=== PATIENT | male | born 1935 | race Caucasian/White ===

== ENCOUNTER → 2017-10-20 05:43 | Outpatient (CLI) | payer MEDICARE, SELFPAY ==
[2017-10-20 07:05] LABS: AST(SGOT) 17 U/L (15-37); Alanine Aminotransfer ALT/SGPT 31 U/L (16-61); Albumin, Serum 2.7 g/dL (3.2-5.0); Alkaline Phosphatase 99 U/L (45-117); Bilirubin, Direct 0.15 mg/dL (0.00-0.30); Cholesterol 134 mg/dL (200); Globulin 3.8 g/dL (2.2-4.2); High Density Lipoprotein 54 mg/dL; Protein, Total 6.5 g/dL (6.4-8.2); Triglycerides 54 mg/dL; Very Low Density Lipoprotein 11 mg/dL (5-40)
== END ==
PROVIDERS: Family Provider Family Medicine; PCP Family Medicine; Visit Provider Internal Medicine Cardiovascular Disease
DX: E78.5 Hyperlipidemia, unspecified (principal); Z79.899 Other long term (current) drug therapy
CPT/HCPCS: 36415; 80061; 80076

== ENCOUNTER 2018-01-25 13:01 | Emergency (ER) | payer MEDICARE, SELFPAY ==
[2018-01-25 13:02] VITALS: BP 151/80; PULSE 100; RESP 22; TEMP 36.9; O2SAT 93; BMI 18.2
[2018-01-25 13:35] VITALS: PULSE 85; RESP 20
[2018-01-25] MEDS: predniSONE 20 MG Tablet 60 MG PO (13:35)
[2018-01-25] MEDS: Ipratropium/Albuterol Sulfate 3 ML AMPUL.NEB INHALATION (13:35)
[2018-01-25 13:39] VITALS: O2SAT 94
[2018-01-25] MEDS: Albuterol 2.5 MG/3 ML VIAL.NEB. INHALATION (13:45)
--- NOTE | 2018-01-25 14:00 | RAD_ITS ---
STUDY: X-RAY CHEST REASON FOR EXAM: Male, 82 years old. Cough. Shortness of breath. TECHNIQUE: PA and lateral views of the chest. COMPARISON: Comparison is made with prior study dated July 25, 2016. FINDINGS: EKG electrodes are seen. Calcific plaque seen at both carotid bifurcations. Hyperinflation. Increased markings in the right upper lobe as compared to prior study. This may represent either progressive scarring or early infiltrate. Decreased bronchovascular markings bilaterally suggestive of emphysematous changes. Stable scarring in the left lower lobe. Sternal cerclage wires and vascular clips are present from a prior sternotomy and coronary artery bypass graft procedure (CABG). Questionable 3.8 signed by 3.2 cm right infrahilar mass. Normal visualized pulmonary arteries. Normal visualized aortic arch and descending thoracic aorta. There are diffuse degenerative changes of the visualized thoracic spine. Normal visualized ribs, clavicles, and shoulders. There is no demonstrated abnormality of the visualized soft tissue structures of the upper abdomen. RAD/Chest PA and Lateral IMPRESSION: Hyperinflation. Increased markings in the right upper lobe suggestive of progressive scarring and/or early infiltrate. Stable left lower lobe scarring. Blunting of both costophrenic angles. Questionable 3.2 cm x 3.8 cm right infrahilar mass. Emphysematous changes. Electronically Signed: Amauri Elizalde MD at 14:34 EST Tel [phone], Service support ,
[2018-01-25 14:06] LABS: Absolute Lymphocyte Count 2.08 X10^3/ul (0.83-4.51); Absolute Neutrophil Count 13.4 X10^3/uL (2.0-7.7); Basophil# 0.02 X10^3/uL; Basophil% 0.1 % (0-1); Eosinophil# 0.01 X10^3/uL; Eosinophils% 0.1 % (0-5); Hematocrit 41.9 % (40-54); Hemoglobin 13.7 g/dl (13.0-16.5); Lymphocyte # 2.08 X10^3/ul (4.0); Lymphocyte % 12.6 % (19-41); Mean Corp Hgb Conc 32.7 g/gl (32-36); Mean Corpuscular Hgb 28.4 pg (27.0-32.0); Mean Corpuscular Volume 86.9 fL (80-94); Mean Platelet Vol. 9.4 fl (6.2-12.0); Monocyte# 1.01 X10^3/uL; Monocyte% 6.1 % (0-10); Neutrophil # 13.38 X10^3/uL (2.7-7.7); Platelet Count 244 K/mm3 (150-450); RBC Distribution Width CV 13.2 % (11.6-14.6); RBC Distribution Width SD 42.2 fl (35.1-43.9); Red Blood Count 4.82 M/mm3 (4.6-6.2); White Blood Count 16.5 K/mm3 (4.4-11.0)
[2018-01-25 14:08] LABS: POSITIVE COUNT NO; POSITIVE DIFFERENTIAL NO; POSITIVE MORPHOLOGY NO
[2018-01-25 14:14] LABS: Anion Gap 5 (5-15); BUN 18 mg/dL (7-18); BUN/Creat Ratio 16.8 RATIO (10-20); Calcium,Total 9.8 mg/dL (8.5-10.1); Chloride 106 mmol/L (98-107); Creatinine, Serum 1.07 mg/dL (0.70-1.30); EST Glomerular Filtration Rate 70 mL/min (>60); Est Glom Filt Rate - Afr Amer 85 mL/min (>60); Estimated Creatinine Clearance 43.96 ml/min; Glucose 115 mg/dL (74-106); Potassium 4.5 mmol/L (3.5-5.1); Sodium Level 139 mmol/L (136-145)
[2018-01-25 15:01] VITALS: BP 96/67; PULSE 86; RESP 20; O2SAT 94
--- NOTE | 2018-01-25 15:11 | ED.VISSUMM ---
- ER Visit Summary Date of Service: 01/25/18 Chief Complaint: Shortness of breath and productive cough of green sputum History of Present Illness: The patient is a 82 M who has history of COPD, coronary disease, CVA, hypertension, hypercholesterolemia and ventricular premature beats presents with shortness of breath for the past 1-2 days with productive green colored sputum. He does complain of subjective fever with chills. He denies ocular, visual auditory symptoms. He denies nasal congestion, postnasal drainage or rhinorrhea. He does report palpitations. He denies GI or symptoms. Denies myalgias or arthralgias. He denies rash. There is mild generalized weakness. Denies headache, paresthesia, anesthesia motor weakness. He denies hives or swelling. Is a former smoker and quit in 2002. He is not on home oxygen. Physical Examination: Vital signs noted and remarkable for a heart rate of 100 and respiratory rate of 22. He is not hypoxic and was afebrile. Head is atraumatic normocephalic. Pupils are equal round reactive. Extraocular muscles are intact. TMs are pearly white with landmarks noted. Nares patent with no drainage. Posterior pharynx without erythema or exudate. Uvula is midline. There is no dysphonia or dysphasia. Trachea is midline. There is no stridor with auscultation of the neck. Lungs reveal diminished breath sounds bilateral with expiratory wheezing throughout and increased x-ray phase. Heart is regular without murmur, gallop or rub. Abdomen soft nontender. There is no asymmetry, swelling, discoloration, leg vein distention, palpable cords or tenderness along the distribution of the deep venous system. Neuro exam is nonfocal. Test Results: EKG interpreted by ak as sinus with a rate of 98 and first-degree AV block. QRS duration normal. QT interval normal. [place] is normal. There is no ossific ST-T wave changes noted. 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 There is no discrete infiltrate noted. White count is elevated 16,500 with 81 segs. Electro panels unremarkable. Emergency Department Course and Treatment: Patient was treated with Atrovent and 3 albuterol treatments. He received 60 mg of prednisone. He received a dose of antibiotics in the department. Chest x-ray was obtained to assess for pneumonia or pneumothorax etc. CBC to evaluate for white count and to determine if he is anemic. Be a PAC to assess electrolytes and renal function. Patient was reassessed at 1500. He is wheeze free. Treatment Plan: Prescription for doxycycline and burst of prednisone Disposition: Discharge to home Impression: 1. Exacerbation of COPD with bronchospasm 2. Exacerbation of chronic bronchitis This note was generated with [employer] dictation software. It may contain incorrect words, spelling, and punctuation that were not noted in review of the chart prior to signing ED Disposition - Plan for ED Patient: Disposition: Home or Assisted Living Chief Complaint: Shortness of Breath Instructions: ED COPD Flare Prescriptions: Prednisone [Deltasone] 40 mg PO DAILY #10 tab Doxycycline Monohydrate 100 mg PO BID #14 cap Referrals: mR Calixto MD [Primary Care Provider] - 3-5 Days
--- NOTE | 2018-01-25 15:15 | ED.DCSUM_ITS ---
- ER Visit Summary Date of Service: 01/25/18 Chief Complaint: Shortness of breath and productive cough of green sputum History of Present Illness: The patient is a 82 M who has history of COPD, coronary disease, CVA, hypertension, hypercholesterolemia and ventricular premature beats presents with shortness of breath for the past 1-2 days with productive green colored sputum. He does complain of subjective fever with chills. He denies ocular, visual auditory symptoms. He denies nasal congestion, postnasal drainage or rhinorrhea. He does report palpitations. He denies GI or symptoms. Denies myalgias or arthralgias. He denies rash. There is mild generalized weakness. Denies headache, paresthesia, anesthesia motor weakness. He denies hives or swelling. Is a former smoker and quit in 2002. He is not on home oxygen. Physical Examination: Vital signs noted and remarkable for a heart rate of 100 and respiratory rate of 22. He is not hypoxic and was afebrile. Head is atraumatic normocephalic. Pupils are equal round reactive. Extraocular muscles are intact. TMs are pearly white with landmarks noted. Nares patent with no drainage. Posterior pharynx without erythema or exudate. Uvula is midline. There is no dysphonia or dysphasia. Trachea is midline. There is no stridor with auscultation of the neck. Lungs reveal diminished breath sounds bilateral with expiratory wheezing throughout and increased x-ray phase. Heart is regular without murmur, gallop or rub. Abdomen soft nontender. There is no asymmetry, swelling, discoloration, leg vein distention, palpable cords or tenderness along the distribution of the deep venous system. Neuro exam is nonfocal. Test Results: EKG interpreted by ca as sinus with a rate of 98 and first-degree AV block. QRS duration normal. QT interval normal. [place] is normal. There is no ossific ST-T wave changes noted. 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 There is no discrete infiltrate noted. White count is elevated 16,500 with 81 segs. Electro panels unremarkable. Emergency Department Course and Treatment: Patient was treated with Atrovent and 3 albuterol treatments. He received 60 mg of prednisone. He received a dose of antibiotics in the department. Chest x-ray was obtained to assess for pneumonia or pneumothorax etc. CBC to evaluate for white count and to determine if he is anemic. Be a PAC to assess electrolytes and renal function. Patient was reassessed at 1500. He is wheeze free. Treatment Plan: Prescription for doxycycline and burst of prednisone Disposition: Discharge to home Impression: 1. Exacerbation of COPD with bronchospasm 2. Exacerbation of chronic bronchitis This note was generated with [employer] dictation software. It may contain incorrect words, spelling, and punctuation that were not noted in review of the chart prior to signing ED Disposition - Plan for ED Patient: Disposition: Home or Assisted Living Chief Complaint: Shortness of Breath Instructions: ED COPD Flare Prescriptions: Prednisone [Deltasone] 40 mg PO DAILY #10 tab Doxycycline Monohydrate 100 mg PO BID #14 cap Referrals: Rm Calixto MD [Primary Care Provider] - 3-5 Days
[2018-01-25] MEDS: Doxycycline 100 MG CAPSULE PO (15:27)
[2018-01-25 15:30] VITALS: BP 116/61; PULSE 82; RESP 19; O2SAT 95
--- NOTE | 2018-01-25 15:30 | ED.RN ---
IV DC'ED, CATHETER INTACT, SMALL GAUZE DRESSING PLACED. DISCHARGE INSTRUCTIONS GIVEN TO AND REVIEWED WITH PATIENT, PATIENT DENIES QUESTIONS OR CONCERNS AND VOICES UNDERSTANDING OF DISCHARGE INSTRUCTIONS. PT TO PRIVATE VEHICLE VIA WHEELCHAIR.
--- OUTSIDE RECORDS SUMMARY | 2018-03-23 02:16 | XMS RPT_ITS ---
:1935 Author Organization OHIP Care Team Providers Name Role Phone BECKIE SHANKS Attending Unavailable BABIUCH, BECKIE Referring Unavailable BABIUCH, BECKIE Attending Unavailable BABIUCH, BECKIE Attending Unavailable BABIUCH, BECKIE Referring Unavailable CLAUDIA REYNA F Attending Unavailable RIMMA, BECKIE Referring Unavailable CLAUDIA JOLLEY (OD) Attending Unavailable Nallely Manrique Attending Unavailable Gunner, Daniel Attending Unavailable [place], [place] Referring Unavailable Elderbrock, Rm Primary Care Unavailable [place], [place] Attending Unavailable Elderbroreid, Rm Referring Unavailable Elderbrock, Rm Primary Care Unavailable Elderbroreid, Rm Primary Care Unavailable Stevenson, Prince Attending Unavailable PROBLEMS PROBLEMS DATE TYPE CONDITION / CODE ATTENDING STATUS SOURCE 10/20/2017 Unknown E78.5 - Hyperlipidemia, [place], [place] Active [place] unspecified / Community E78.5(ICD-10) Hospital Repository 10/20/2017 Unknown Z95.1 - Presence of Gunner, Daniel Active [facility] aortocoronary bypass Community graft / Z95.1(ICD-10) Hospital Repository 10/20/2017 Unknown Z95.4 - Presence of [place], [place] Active [place] other heart-valve Community replacement / Hospital Z95.4(ICD-10) Repository 10/20/2017 Unknown I25.10 - [place], [place] Active [place] Atherosclerotic heart Community disease of [place] [facility] coronary artery without Repository angina pectoris / I25.10(ICD-10) 10/20/2017 Unknown I25.2 - Old myocardial Gunner, Daniel Active [facility] infarction / Community I25.2(ICD-10) Hospital Repository 10/20/2017 Unknown I63.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 - Cerebral Gunner, Daniel Active [facility] 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 Hospital cerebellar artery / Repository I63.442(ICD-10) 10/20/2017 Unknown Z95.5 - Presence of [place], [place] Active [facility] coronary angioplasty Community implant and graft / Hospital Z95.5(ICD-10) Repository 10/20/2017 Unknown I35.0 - Nonrheumatic Gunner, Daniel Active [facility] aortic (valve) stenosis Community / I35.0(ICD-10) Hospital Repository 10/20/2017 Unknown I49.49 - Other [place], [place] Active [facility] premature Community depolarization / Hospital I49.49(ICD-10) Repository 10/20/2017 Unknown I10 - Essential [place], [place] Active [facility] (primary) hypertension Community / I10(ICD-10) Hospital Repository 10/20/2017 Unknown Z79.899 - Other long Gunner, Daniel Active [facility] term (current) drug Community therapy / Hospital Z79.899(ICD-10) Repository 09/29/2016 Active [facility] of intraocular BECKIE SHANKS Active [place] lens / Z96.1(ICD-10) Clinic Main [place] Repository 09/29/2016 Active Nonexudative BECKIE SHANKS [facility] age-related macular [facility] Main degeneration, right [place] eye, intermediate dry Repository stage / H35.3112(ICD-10) 09/29/2016 Active Exudative age-related BECKIE SHANKS Active [place] macular degeneration, Clinic Main left eye, with active [place] choroidal Repository neovascularization / H35.3221(ICD-10) PROCEDURES PROCEDURES No Procedure Records FoundRESULTS RESULTS EMERGENCY DEPARTMENT Observed: 01/25/2018 Status: F Source: [place] SUMMARY 3:16 PM [facility] REPOSITORY [facility] Medical Records Department [address] [place] [address] Emergency Department Summary 01/25/18 1511 MR#: [id number] Acct: [id number] Name: ELODIA DEL CID Rep #: [id number] : 1935 82 From: Prince Stevenson MD PCP: Rm Calixto MD Status: REG ER - ER Visit Summary Date of Service: 01/25/18 Chief Complaint: Shortness of breath and productive cough of green sputum History of Present Illness: The patient is a 82 M who has history of COPD, coronary disease, CVA, hypertension, hypercholesterolemia and ventricular premature beats presents with shortness of breath for the past 1-2 days with productive green colored sputum. He does complain of subjective fever with chills. He denies ocular, visual auditory symptoms. He denies nasal congestion, postnasal drainage or rhinorrhea. He does report palpitations. He denies GI or symptoms. Denies myalgias or arthralgias. He denies rash. There is mild generalized weakness. Denies headache, paresthesia, anesthesia motor weakness. He denies hives or swelling. Is a former smoker and quit in 2002. He is not on home oxygen. Physical Examination: Vital signs noted and remarkable for a heart rate of 100 and respiratory rate of 22. He is not hypoxic and was afebrile. Head is atraumatic normocephalic. Pupils are equal round reactive. Extraocular muscles are intact. TMs are pearly white with landmarks noted. Nares patent with no drainage. Posterior pharynx without erythema or exudate. Uvula is midline. There is no dysphonia or dysphasia. Trachea is midline. There is no stridor with auscultation of the neck. Lungs reveal diminished breath sounds bilateral with expiratory wheezing throughout and increased x-ray phase. Heart is regular without murmur, gallop or rub. Abdomen soft nontender. There is no asymmetry, swelling, discoloration, leg vein distention, palpable cords or tenderness along the distribution of the deep venous system. Neuro exam is nonfocal. Test Results: EKG interpreted by me as sinus with a rate of 98 and first-degree AV block. QRS duration normal. QT interval normal. Odin is normal. There is no ossific ST-T wave changes noted. Two-view chest x-ray interpreted by me reveals hyperaeration with chronic changes consistent with emphysematous obstructive pulmonary disease. There is no discrete infiltrate noted. White count is elevated 16,500 with 81 segs. Electro panels unremarkable. Emergency Department Course and Treatment: Patient was treated with Atrovent and 3 albuterol treatments. He received 60 mg of prednisone. He received a dose of antibiotics in the department. Chest x-ray was obtained to assess for pneumonia or pneumothorax etc. CBC to evaluate for white count and to determine if he is anemic. Be a PAC to assess electrolytes and renal function. Patient was reassessed at 1500. He is wheeze free. Treatment Plan: Prescription for doxycycline and burst of prednisone Disposition: Discharge to home Impression: 1. Exacerbation of COPD with bronchospasm 2. Exacerbation of chronic bronchitis This note was generated with [employer] dictation software. It may contain incorrect words, spelling, and punctuation that were not noted in review of the chart prior to signing ED Disposition - Plan for ED Patient: Disposition: Home or Assisted Living Chief Complaint: Shortness of Breath Instructions: ED COPD Flare Prescriptions: Prednisone [Deltasone] 40 mg PO DAILY #10 tab Doxycycline Monohydrate 100 mg PO BID #14 cap Referrals: Rm Calixto MD [Primary Care Provider] - 3-5 Days What to do if you have Problems For any increased pain, shortness of breath, bleeding, nausea or vomiting, chest pain, or any unexpected problems, contact your Primary Care Provider. Call [facility] ([phone]) or report to the closest Emergency Room. Call 911 if necessary. 01/25/18 4650 <Electronically signed by Prince Stevenson MD> Date Prince Stevenson MD Cosigner Signature (If Indicated): Date CC: Rm Calixto MD CBC W/DIFF, AUTOMATED Collected: 01/25/2018 Status: F Source: [place] 1:55 PM [facility] CODE TESTS RESULT OUT OF RANGE REFERENCE UNITS LAB L100.1000 4.4-11.0 K/mm3 High WBC 16.5 LAB L100.1200 4.6-6.2 M/mm3 Normal RBC 4.82 LAB L100.1300 13.0-16.5 g/dl Normal HGB 13.7 LAB L100.1400 40-54 % Normal HCT 41.9 LAB L100.1500 80-94 fL Normal MCV 86.9 LAB L100.1600 27.0-32.0 pg Normal MCH 28.4 LAB L100.1700 32-36 g/gl Normal MCHC 32.7 LAB L100.1810 11.6-14.6 % Normal RDW CV 13.2 LAB L100.1820 35.1-43.9 fl Normal RDW SD 42.2 LAB L100.1900 150-450 K/mm3 Normal PLT 244 LAB L100.2000 6.2-12.0 fl Normal MPV 9.4 LAB L100.2100 47-70 % High NEUT% 81.0 LAB L100.2200 19-41 % Low LY% 12.6 LAB L100.2300 0-10 % Normal MONO% 6.1 LAB L100.2400 0-5 % Normal EO% 0.1 LAB L100.2500 0-1 % Normal BASO% 0.1 LAB L100.2550 0.0-0.9 % Normal IM GRAN % 0.100 Result Comment: IG% - Immature Granulocytes (promyelocytes, myelocytes and metamyelocytes) > 1% indicates that a LEFT SHIFT is Present. LAB L100.2620 2.0-7.7 X10 3/uL High Absolute Neut 13.4 LAB L100.2720 0.83-4.51 X10 3/ul Normal Absolute Lymph 2.08 Performed By: #### L100.0100 #### [place] [facility] [address] [place], [address] BASIC METABOLIC Collected: 01/25/2018 Status: F Source: [place] PROFILE (BMP) 1:55 PM [facility] [place] TYPE CODE TESTS RESULT OUT OF RANGE REFERENCE UNITS LAB L501.0100 74-106 mg/dL High GLU 115 Result Comment: Fasting Glucose result from 100 to 125 mg/dL suggests IMPAIRED HOMEOSTASIS per A.D.A. criteria. Please note revised GLUCOSE reference range effective 2017. LAB L501.1000 7-18 mg/dL Normal BUN 18 LAB L501.1100 0.70-1.30 mg/dL Normal CREAT,SERUM 1.07 Result Comment: The validity of the calculated GFR AND GFRAA in patients over 70 years has not been determined. Clinical correlation is essential. LAB L501.1110 >60 mL/min Normal EST GFR 70 Result Comment: Non- GFR Calc LAB L501.1115 >60 mL/min Normal EST GFR - AA 85 Result Comment: GFR Calc LAB L501.1255 ml/min Normal Estimated CRCL 43.96 LAB L501.1300 10-20 RATIO Normal BUN/CRE 16.8 LAB L501.2200 8.5-10 mg/dL Normal .1 CA 9.8 LAB L501.5300 136-14 mmol/L Normal 5 NA 139 LAB L501.5600 3.5-5. mmol/L Normal 1 K 4.5 LAB L501.5900 98-107 mmol/L Normal CL 106 LAB L501.6100 21.0-3 mmol/L Normal 2.0 CO2 28.0 LAB L501.6200 5-15 Normal GAP 5 Performed By: #### L500.2500 #### [facility] [address] [place], [address] CHEST PA AND LATERAL Observed: 01/25/2018 Status: F Source: [place] 1:26 PM [facility] [place] [facility] Imaging Services [address] [place] [address] Chest PA and Lateral MR#: [id number] Acct: [id number] Name: ELODIA DEL CID Rep #: [id number] : 1935 M 82 From: Amauri Elizalde MD PCP: Rm Calixto MD Status: REG ER Study: Chest PA and Lateral Date of Exam: 01/25/18 Exam# [id number] Ordering Dr: Prince Stevenson MD STUDY: X-RAY CHEST REASON FOR EXAM: Male, 82 years old. Cough. Shortness of breath. TECHNIQUE: PA and lateral views of the chest. COMPARISON: Comparison is made with prior study dated July 25, 2016. FINDINGS: EKG electrodes are seen. Calcific plaque seen at both carotid bifurcations. Hyperinflation. Increased markings in the right upper lobe as compared to prior study. This may represent either progressive scarring or early infiltrate. Decreased bronchovascular markings bilaterally suggestive of emphysematous changes. Stable scarring in the left lower lobe. Sternal cerclage wires and vascular clips are present from a prior sternotomy and coronary artery bypass graft procedure (CABG). Questionable 3.8 signed by 3.2 cm right infrahilar mass. Normal visualized pulmonary arteries. Normal visualized aortic arch and descending thoracic aorta. There are diffuse degenerative changes of the visualized thoracic spine. Normal visualized ribs, clavicles, and shoulders. There is no demonstrated abnormality of the visualized soft tissue structures of the upper abdomen. RAD/Chest PA and Lateral IMPRESSION: Hyperinflation. Increased markings in the right upper lobe suggestive of progressive scarring and/or early infiltrate. Stable left lower lobe scarring. Blunting of both costophrenic angles. Questionable 3.2 cm x 3.8 cm right infrahilar mass. Emphysematous changes. Electronically Signed: Amauri Elizalde MD at 14:34 EST Tel [phone], Service support , CC: Rm Calixto MD; Prince Stevenson MD Plumbing Instructor: Signed PROGRESS Observed: 12/20/2017 Status: COMPLETED Source: [place] 10:38 AM [facility] REPOSITORY HNO ID: [id number] Author: Claudia Jolley Service: (none) Author Type: WORKFORCE DEVELOPMENT SPECIALIST Type: Progress Notes Filed: 12/20/2017 10:39 AM Note Text: ASSESSMENT/PLAN: 1. Subconjunctival hemorrhage of left eye - ICD9: 372.72, ICD10: H11.32 (primary diagnosis) Ice packs x 10 minutes x 2-3 times per day Left eye for discomfort 2. Pseudophakia of both eyes - ICD9: V43.1, ICD10: Z96.1 Intraocular lens implant in good position both eyes. Claudia Jolley, OD I have confirmed and edited as necessary the relevant ophthalmic history, review of systems, surgical history, and ophthalmological examination findings as obtained by the ophthalmic technical staff. I have seen and examined Elodia Del Cid. I have discussed the examination findings, diagnosis, and treatment options with Elodia Del Cid and/or his family. I have also reviewed and agree with the assessment and plan as stated above and agree with all its relevant components. I gave the patient the opportunity to ask questions about the findings, diagnosis, and treatment options. PROGRESS Observed: 12/16/2017 Status: COMPLETED Source: [place] 2:16 PM [facility] REPOSITORY [facility] ID: [id number] Author: Claudia Reyna Service: (none) Author Type: Physician Type: Progress Notes Filed: 12/16/2017 3:23 PM Note Text: (H35.3221) Exudative age-related macular degeneration, left eye, with active choroidal neovascularization (HCC) (primary encounter diagnosis) (H35.3112) Nonexudative age-related macular degeneration, right eye, intermediate dry stage (Z96.1) Pseudophakia of both eyes 82 year old male patient with exudative Age related macular degeneration Left eye. Advise intravitreal eylea Left eye today. Non exudative Age related macular degeneration Right eye. AREDS 2 vitamins are recommended and can be purchased over the counter at the drug store. Please check the amsler grid daily and contact the office should a change occur. Intraocular lens Both eyes stable. Return to clinic in [place] in 8 weeks. The documentation recorded by the scribe accurately reflects the service I personally performed and the decisions made by me. I have confirmed and edited as necessary the relevant ophthalmic history, ROS, and the neuro exam findings as obtained by others. I have seen and examined Elodia Del Cid. I have discussed the case and the management of this patient's care with the Lace Stripper, if applicable. I also have reviewed and agree with the assessment and plan as stated above and agree with all of its relevant components. Claudia Reyna MD December 16, 2017 3:23 PM PROGRESS Observed: 10/21/2017 Status: COMPLETED Source: [place] 1:03 PM [facility] REPOSITORY HNO ID: [id number] Author: Beckie Shanks Service: (none) Author Type: Physician Type: Progress Notes Filed: 10/21/2017 1:34 PM Note Text: ASSESSMENT/PLAN: Last dilated fundus exam: June 24, 2017 H35.3221 Exudative age-related macular degeneration, left eye, with active choroidal neovascularization (HCC) (primary encounter diagnosis) Comment: onset within the last 2 months or so - recommend anti-VEGF therapy - s/p Avastin x 5 (06/24/2017) AND s/p Eylea x 2 (Apr 2017) - was in [place] until April 2017 and was seen there in Jan, Mar and Apr when he had Avastin and Eylea - patient says [employer] coverage is good for Beckie Shanks MD for Eylea - subretinal fluid resolved on OCT today - recommend Eylea today left eye and follow up in 8-10 weeks - leaves for [place] in December H35.3112 Nonexudative age-related macular degeneration, right eye, intermediate dry stage Comment: AREDS supplementation, Amsler grid testing, and the warnings regarding the transformation from the dry form to the wet form of Age related macular degeneration were recommended to the patient. Z96.1 Pseudophakia of both eyes Comment: stable/obs Any documentation recorded by the scribe accurately reflects the service I personally performed and the decisions made by myself, Beckie Shanks MD. I have confirmed and edited as necessary the relevant ophthalmic history, ROS, and the neuro exam findings as obtained by others. I have seen and examined Elodiaepi Del Cid. I have discussed the case and the management of this patient's care with the Resident/Fellow, if applicable. I also have reviewed and agree with the assessment and plan as stated above and agree with all of its relevant components. CARDIOLOGY VISIT Observed: 10/20/2017 Status: F Source: [place] REPORT 9:40 AM [facility] [facility] [address] [place] [address] [address] [place] [address] OFFICE VISIT Date of Service: 10/20/17 MR#: [id number] Acct: [id number] Name: ELODIA DEL CID Rep #: [id number] : 1935 Provider: Daniel Martino MD Age/Sex: 81/M Location: [facility] Status: Signed HPI HPI Chief Complaint: Follow-up visit. Details: ELODIA DEL CID, is a 81 M who presents to the office today for a follow-up visit. He is a gentleman with a history of coronary artery disease status post carotid bypass surgery with a saphenous vein graft to diagonal branch and right coronary artery. He also had aortic valve disease and had an aortic valve replacement for aortic valve stenosis. He also has a history of hypertension and hyperlipidemia. He says that he has been doing well denying any chest pain or shortness breath or paroxysmal nocturnal dyspnea no pedal edema he does get mild shortness of breath when he exerts himself quite strenuously. He has not had any neck arm or jaw discomfort suggest angina and his physical exam today demonstrates clear lung torres regular rate and rhythm with occasional irregularities of soft 1/6 systolic murmur noted left sternal border and no pedal edema. His blood pressure is under good control. Intake Vital Signs10/20/17 Height 5 ft 11 in 10/20/17 Weight: 130 lb 10/20/17 Body Mass Index (BMI) 18.1 10/20/17 Blood Pressure 130/60 10/20/17 Respiratory Rate 18 10/20/17 Pulse Rate 52 Intake Visit Reasons: 6 M FU (we r/s from 07-20 AND 10-28) Allergies No Known Allergies Allergy (Verified 10/20/17 08:33) Medications Albuterol Aerosols [Ventolin Aerosols] 2.5 mg INHALATION Q4H PRN PRN 07/24/16 [History Confirmed 10/20/17] Aspirin 81 mg PO DAILY 07/24/16 [History Confirmed 10/20/17] Ipratropium/Albuterol Respimat [Combivent Respimat Inhal [place]] 1 puff INHALATION DAILY 07/24/16 [History Confirmed 10/19/17] Tamsulosin HCl [Flomax] 0.4 mg PO DAILY 07/24/16 [History Confirmed 10/19/17] atorvastatin 40 mg tablet 40 mg PO QHS #90 tab 07/30/17 [Rx Confirmed 10/19/17] clopidogrel 75 mg tablet 75 mg PO DAILY #90 tab 09/20/17 [Rx Confirmed 10/20/17] lisinopril 10 mg tablet 10 mg PO QDAY #90 tab 09/20/17 [Rx Confirmed 10/19/17] metoprolol succinate ER 50 mg tablet,extended release 24 hr 50 mg PO DAILY #90 tab 09/20/17 [Rx Confirmed 10/19/17] HANDICAP PLACARD #1 ea 10/19/17 [History Confirmed 10/19/17] amoxicillin 500 mg tablet 2 g PO ONCE PRN tab 10/19/17 [History Confirmed 10/19/17] beclomethasone diprop 40 mcg/actuation HFA breath activated aerosol 1 puff INHALATION BID 10/19/17 [History Confirmed 10/19/17] famotidine 20 mg tablet 20 mg PO QDAY 10/19/17 [History Confirmed 10/19/17] fluticasone 50 mcg/actuation nasal spray,suspension 2 spray INTRANASAL QDAY 10/19/17 [History Confirmed 10/19/17] vit C 150 mg-vit E 30 unit-lutein 5 ye-auuvftpa-semiq 3 150 mg capsule 1 cap PO QAM 10/19/17 [History Confirmed 10/19/17] [facility] Medical History Multiple premature ventricular complexes (Chronic) Atherosclerosis of coronary artery of [place] heart without angina pectoris (Chronic) Non-rheumatic aortic stenosis (Chronic) 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) Hypertension (Chronic) Hyperlipidemia (Chronic) COPD (chronic obstructive pulmonary disease) (Chronic) RLS (restless legs syndrome) (Chronic) Surgical History H/O coronary artery bypass surgery (Resolved 10/24/02) History of coronary artery stent placement (Resolved 1997) History of aortic valve replacement with tissue graft (Resolved 10/24/02) Family History Mother CVA (cerebral vascular accident) Brother Myocardial infarction age 50 Social History Smoking Status: Former smoker ROS Const Const: Positive for other; negative for fatigue, weakness, difficulty sleeping, frequent falls, excessive sweating or headache(s) Eyes Eyes: Negative for loss of peripheral vision, transient loss of vision, blurry vision, tunnel vision or double vision ENT ENT: Negative for headache(s), dizziness, Nosebleed/epistaxis or balance problems Cardio Chest Pain: No Palpitations: No Edema: None Muscle aches with walking: None Resp Respiratory: Positive for SOB with activity and wheezing (Diminished T/O ); negative for SOB at rest, SOB orthopnea\SOB lying down, paroxysmal nocturnal dyspnea or Cough Additional Details: Taking Z-Hammad for URI. Occasionally uses 2 L of O2 at night GI GI: Negative nausea, heartburn, black,tarry stools or vomiting : Negative for hematuria Musc Musc: Negative for balance problems, muscle aches/ myalgia, muscle weakness or joint pain Skin Skin: Negative non-healing lesions, unusual bruising or rash Neuro Neuro: Negative for weakness, frequent falls, headache(s), blurry vision, double vision, dizziness, lightheadedness, orthostatic symptoms, near syncope, syncope or lack of coordination Darryl Hematologic/Lymphatic: Negative for easy bruising or easy bleeding Endo Endo: Negative for fatigue, excessive sweating or increased thirst/drinking Psych Psych: Negative for anxiety or depression Allergy Allergy/Immunology: Negative for hives, Negative for rash Cardiology Exam Const Appearance: cooperative, healthy appearing, well developed, well groomed and no acute distress Nutritional Appearance: well nourished and average body habitus Orientation: alert, awake and oriented x3 Head Head: normal to inspection, normocephalic and atraumatic Ears: hearing grossly normal bilaterally and external ears normal Nose: external nose normal, nasal mucous membranes and turbinates normal, nares normal, septum normal, no nasal discharge Face and Sinus: face symmetric Mouth: oral mucosae normal, tongue normal, oropharynx normal and moist mucous membranes Teeth and gingiva: dentition normal Throat: posterior oropharynx normal, tonsils normal and uvula midline Eyes General: appearance normal, both eyes and all related structures Eyelids: eyelids normal Conjunctivae: conjunctivae normal Pupils: PERRL, normal by confrontation and accommodation normal EOM: EOM intact bilaterally Neck Neck: normal visual inspection, trachea midline and no JVD JVD: +5 Carotids: normal carotid upstroke and bounding pulses Chest Chest inspection: normal inspection of the chest, symmetric chest movement and normal respiratory effort Auscultation: Bilateral: Clear to Auscultation Cardio Palpation: normal PMI Rate: regular rate Rhythm: regular rhythm Heart sounds: S1 normal, S2 normal and normal, physiologic split S2; negative rub, gallop or murmur Murmur: Grade 1/6, soft and early systolic GI GI: normal to inspection, soft, no hepatosplenomegaly and bowel sounds present Neuro General: alert, awake, oriented x3, no focal sensory deficit, gait normal and moves all extremities Skin Skin: no rashes or lesions noted Extremities Pulses: Normal: Right Femoral Pulse, Left Femoral Pulse, Right Dorsalis Pedis Pulse, Left Dorsalis Pedis Pulse, Right Posterior Tibial Pulse, Left Posterior Tibial Pulse, Right Radial Pulse, Left Radial Pulse Lower Extremity Edema: None: Bilateral Musculoskel Musculoskeletal: No joint tenderness Psych Psychological: normal affect Assessment AND Plan 1. H/O coronary artery bypass surgery Z95.1 CABG x 2 SVG-D1, SVG-RCA with Aortic Valve Replacement 10/24/2002 Plan He is status post carotid bypass surgery as noted above. He does not appear to have any angina and the plan will be for him to continue on the current medical therapy. He remains very active and I do not think that any additional testing needs to be performed at this time. Orders Orders: 2. Multiple premature ventricular complexes I49.49 Plan He does have a history of premature ventricular complexes. His electrocardiogram today demonstrated sinus rhythm with a rate of 68 bpm and frequent premature ventricular complexes. No changes will be made especially in light of the fact that his ejection fraction is noted to be preserved. His last echocardiogram had demonstrated ejection fraction of 50% with no obvious wall motion abnormalities. 3. History of aortic valve replacement with tissue graft Z95.4 25 mm Medtronic Mosaic Porcine Valve 10/21/2002 Plan He is status post aortic valve replacement with a Andrew Miranda valve his last valve area was noted to be 1.3 cm . No changes will be made he will continue with antibiotic prophylaxis. Orders Orders: 4. Hypertension I10 Plan His blood pressure appears to be under good control at this particular time on the current medications and I would not recommend that we make any changes. He will remain on the Toprol and the lisinopril. 5. Hyperlipidemia E78.5 Plan He does have a history of hyperlipidemia. His most recent lipid profile demonstrated total cholesterol 134, HDL 54 and LDL of 69. No other medical changes will be made. Thank you for allowing me to participate in the care of your patient. 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 [address] [place] [address] 12 Lead EKG performed by [facility] 10/20/17 0910 MR#: [id number] Acct: [id number] Name: ELODIA DEL CID Rep #: [id number] : 1935 81 From: Daniel Martino MD Attending Dr: Daniel Martino MD Status: DEP AMB Ordering Dr: Daniel Martino MD Date: 10/20/17 Location: [facility] [place] Sex: M C Admitted: [facility]/12 Lead EKG performed by [facility] ECG Report Interpretation Sinus Rhythm -Frequent pvcs -ventricular trigeminy Low voltage in limb leads. -Left atrial enlargement. -Inferior infarct -age undetermined. 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: [place] Signed LIVER PROFILE Collected: 10/20/2017 Status: F Source: [place] 6:03 [facility] [place] TYPE CODE TESTS RESULT OUT OF RANGE REFERENCE UNITS LAB L501.1500 6.4-8.2 g/dL Normal T PROT 6.5 LAB L501.1800 3.2-5.0 g/dL Low ALB 2.7 LAB L501.1950 2.2-4.2 g/dL Normal GLOB 3.8 LAB L501.4100 15-37 U/L Normal AST 17 LAB L501.4305 45-117 U/L Normal ALK P 99 LAB L501.4405 16-61 U/L Normal ALT 31 LAB L501.4600 0.20-1.00 mg/dL Normal T BILI 0.40 LAB L501.4700 0.00-0.30 mg/dL Normal D BILI 0.15 Performed By: #### L500.3400, L500.4100 #### [facility] [address] [place], [place], [id number] LIPID PROFILE Collected: 10/20/2017 Status: F Source: [place] 6:03 [facility] [place] TYPE CODE TESTS RESULT OUT OF RANGE REFERENCE UNITS LAB L501.4900 200 mg/dL Normal CHOL 134 Result Comment: <200 mg/dL Desirable 200-240 mg/dL Borderline >240 mg/dL High Risk LAB L501.5000 mg/dL Normal TRIG 54 Result Comment: The drugs N-Acetylcysteine and Metamizole may falsely depress this assay. Serum Triglycerides Reference Interval Normal <150 mg/dL Borderline high 150 - 199 mg/dL High 200 - 499 mg/dL Very High > or = 500 mg/dL LAB L501.6400 mg/dL Normal HDL 54 Result Comment: The drugs N-Acetylcysteine and Metamizole may falsely depress this assay. Reference Range HDL <40 mg/dL Low HDL Cholesterol HDL >or= 60 mg/dL High HDL Cholesterol LAB L501.6500 0-130 mg/dL Normal LDL 69 LAB L501.6600 5-40 mg/dL Normal VLDL 11 Performed By: #### L500.3400, L500.4100 #### [facility] [address] [place], [address] PROGRESS Observed: 10/12/2017 Status: COMPLETED Source: [place] 3:29 PM [facility] REPOSITORY HNO ID: [id number] Author: Betsy Louis Service: (none) Author Type: Nurse Practitioner Type: Progress Notes Filed: 10/12/2017 3:57 PM Note Text: Subjective HPI HPI Elodia Del Cid is a 81 year old male who presents today for CC of cough and productive mucous. This started over a week ago. He is also having red/rust colored mucuous. Symptoms are worsened by lying down. He has tried prescribed inhalers Risk factors COPD BP 100/50 Pulse 76 Temp 36.7 ?C (98 ?F) (Tympanic) Resp 20 Wt 56.7 kg (125 lb) SpO2 94% BMI 17.43 kg/m? 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 Other vitreous opacities - Both Eyes Pseudophakia of Both Eyes Chronic Diastolic Chf (Congestive Heart Failure) (Hcc) Age-Related Macular Degeneration, Dry, Both Eyes Vitreous Floaters of Both Eyes Dry Eye Syndrome Exudative Age-Related Macular Degeneration, Left Eye, 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 Social History Main Topics Smoking status: Former Smoker Packs/day: 1.00 Years: 54.00 Types: Cigarettes Start date: 1948 Quit date: 09/21/2002 Smokeless tobacco: Never Used Comment: Father smoked in childhood home. Alcohol use: No Drug use: No Sexual activity: Yes Partners with: Female Social History Narrative Has lived in current area since age 7. 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 [place] pipeline being placed through property. 2 dogs in home. No birds in home. Basement not really dry. No visible mold problems. Electric heat pump, forced air with central A/C. Filters checked monthly. PAST MEDICAL HISTORY Diagnosis Date - Acute, but ill-defined, cerebrovascular disease 2005 - Aortic valve disorders Valve replaced 2002 - Coronary atherosclerosis of unspecified type of vessel, tanacross or graft CABG 2002 - Obstructive chronic bronchitis with exacerbation (HCC) COPD Review of Systems Constitutional: Negative. Negative for chills, fever and malaise/fatigue. HENT: Positive for congestion (chest). Negative for ear pain, sinus pain and sore throat. Respiratory: Positive for cough, shortness of breath and wheezing. Negative for sputum production. Cardiovascular: Negative for chest pain. Musculoskeletal: Negative for myalgias. Skin: Negative for rash. Neurological: Negative for headaches. Objective Physical Exam Constitutional: He is well-developed, well-nourished, and in no distress. HENT: Head: Normocephalic and atraumatic. Right Ear: Tympanic membrane, external ear and ear canal normal. Tympanic membrane is not injected, not erythematous, not retracted and not bulging. No middle ear effusion. Left Ear: Tympanic membrane, external ear and ear canal normal. Tympanic membrane is not injected, not erythematous, not retracted and not bulging. No middle ear effusion. Nose: Nose normal. Right sinus exhibits no maxillary sinus tenderness and no frontal sinus tenderness. Left sinus exhibits no maxillary sinus tenderness and no frontal sinus tenderness. Mouth/Throat: Uvula is midline, oropharynx is clear and moist and mucous membranes are normal. No oropharyngeal exudate, posterior oropharyngeal edema, posterior oropharyngeal erythema or tonsillar abscesses. Eyes: Pupils are equal, round, and reactive to light. Conjunctivae and EOM are normal. Neck: Normal range of motion. Cardiovascular: Normal rate, regular rhythm and normal heart sounds. Pulmonary/Chest: Effort normal. No respiratory distress. He has decreased breath sounds. He has wheezes. He has no rhonchi. He has no rales. Albuterol neb treatment done while in office, increase in air exchange, with no change in PO2. Lymphadenopathy: Head (right side): No submental, no submandibular, no tonsillar, no preauricular and no posterior auricular adenopathy present. Head (left side): No submental, no submandibular, no tonsillar, no preauricular and no posterior auricular adenopathy present. He has no cervical adenopathy. Right cervical: No posterior cervical adenopathy present. Left cervical: No posterior cervical adenopathy present. Right: No supraclavicular adenopathy present. Left: No supraclavicular adenopathy present. Skin: Skin is warm and dry. Psychiatric: Affect normal. Nursing note and vitals reviewed. ASSESSMENT/PLAN: 1. COPD with exacerbation (HCC) - ICD9: 491.21, ICD10: J44.1 (primary diagnosis) Rest, oral fluids, tylenol as needed for pain or fever See your doctor if not improving Seek emergency room care for worsening symptoms or condition changes Prednisone for airway congestion/wheezing/coughing - ALBUTEROL SULFATE 2.5 MG/3 ML (0.083 %) SOLUTION FOR NEBULIZATION - PREDNISONE 20 MG TABLET - DOXYCYCLINE MONOHYDRATE 100 MG CAPSULE 2. Wheezing - ICD9: 786.07, ICD10: R06.2 .- Discussed use of Prednisone 5 day course as needed for cough, wheeze, shortness of breath * Prednisone 40 mg (2 tablets) per day for 5 days, take in morning or early in day * Do not NSAIDs during this 5 day course (ibuprofen, naproxen, Motrin, Aleve, Advil) Tylenol only during prednisone use * Follow up with primary care provider if no improvement with treatmen * Seek medical care immediately, call 911, go to ER if you have chest pain, difficulty breathing, shortness of breath, inability to swallow. - ALBUTEROL SULFATE 2.5 MG/3 ML (0.083 %) SOLUTION FOR NEBULIZATION - PREDNISONE 20 MG TABLET - DOXYCYCLINE MONOHYDRATE 100 MG CAPSULE Diagnosis and treatment plan were discussed and questions were answered to the patient's satisfaction. Pt acknowledged understanding of concepts and follow up plan. Specific signs and symptoms that would indicate the need for higher level of care were discussed in detail warranting prompt ER evaluation. Betsy Louis APRN.CNP CNOV Observed: 10/12/2017 Status: COMPLETED Source: [place] 3:15 PM [facility] REPOSITORY Office Visit ([facility]) DEL CIDELODIA ([id number]) 1935 M Date Time Provider Department 10/12/17 3:15 PM BETSY LOUIS (P[employer] PAINT TRIMMER) [facility] During your visit today, we recorded the following information about you: Temperature Pulse Respiration Blood pressure 98 degrees 76/minute 20/minute 100/50 Weight 56.7 kg Betsy Louis APRN.CNP 10/12/2017 3:57 PM Signed Subjective HPI HPI Elodia Blackman Nehemias is a 81 year old male who presents today for CC of cough and productive mucous. This started over a week ago. He is also having red/rust colored mucuous. Symptoms are worsened by lying down. He has tried prescribed inhalers Risk factors COPD BP 100/50 Pulse 76 Temp 36.7 ?C (98 ?F) (Tympanic) Resp 20 Wt 56.7 kg (125 lb) SpO2 94% BMI 17.43 kg/m? 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 Other vitreous opacities - Both Eyes Pseudophakia of Both Eyes Chronic Diastolic Chf (Congestive Heart Failure) (Hcc) Age-Related Macular Degeneration, Dry, Both Eyes Vitreous Floaters of Both Eyes Dry Eye Syndrome Exudative Age-Related Macular Degeneration, Left Eye, 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 Social History Main Topics Smoking status: Former Smoker Packs/day: 1.00 Years: 54.00 Types: Cigarettes Start date: 1948 Quit date: 09/21/2002 Smokeless tobacco: Never Used Comment: Father smoked in childhood home. Alcohol use: No Drug use: No Sexual activity: Yes Partners with: Female Social History Narrative Has lived in current area since age 7. [place] current [place] 1877, [place] area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 [place] pipeline being placed through property. 2 dogs in home. No birds in home. Basement not really dry. No visible mold problems. Electric heat pump, forced air with central A/C. Filters checked monthly. PAST MEDICAL HISTORY Diagnosis Date - Acute, but ill-defined, cerebrovascular disease 2006 - Aortic valve disorders Valve replaced 2002 - Coronary atherosclerosis of unspecified type of vessel, tanacross or graft CABG 2003 - Obstructive chronic bronchitis with exacerbation (HCC) COPD Review of Systems Constitutional: Negative. Negative for chills, fever and malaise/fatigue. HENT: Positive for congestion (chest). Negative for ear pain, sinus pain and sore throat. Respiratory: Positive for cough, shortness of breath and wheezing. Negative for sputum production. Cardiovascular: Negative for chest pain. Musculoskeletal: Negative for myalgias. Skin: Negative for rash. Neurological: Negative for headaches. Objective Physical Exam Constitutional: He is well-developed, well-nourished, and in no distress. HENT: Head: Normocephalic and atraumatic. Right Ear: Tympanic membrane, external ear and ear canal normal. Tympanic membrane is not injected, not erythematous, not retracted and not bulging. No middle ear effusion. Left Ear: Tympanic membrane, external ear and ear canal normal. Tympanic membrane is not injected, not erythematous, not retracted and not bulging. No middle ear effusion. Nose: Nose normal. Right sinus exhibits no maxillary sinus tenderness and no frontal sinus tenderness. Left sinus exhibits no maxillary sinus tenderness and no frontal sinus tenderness. Mouth/Throat: Uvula is midline, oropharynx is clear and moist and mucous membranes are normal. No oropharyngeal exudate, posterior oropharyngeal edema, posterior oropharyngeal erythema or tonsillar abscesses. Eyes: Pupils are equal, round, and reactive to light. Conjunctivae and EOM are normal. Neck: Normal range of motion. Cardiovascular: Normal rate, regular rhythm and normal heart sounds. Pulmonary/Chest: Effort normal. No respiratory distress. He has decreased breath sounds. He has wheezes. He has no rhonchi. He has no rales. Albuterol neb treatment done while in office, increase in air exchange, with no change in PO2. Lymphadenopathy: Head (right side): No submental, no submandibular, no tonsillar, no preauricular and no posterior auricular adenopathy present. Head (left side): No submental, no submandibular, no tonsillar, no preauricular and no posterior auricular adenopathy present. He has no cervical adenopathy. Right cervical: No posterior cervical adenopathy present. Left cervical: No posterior cervical adenopathy present. Right: No supraclavicular adenopathy present. Left: No supraclavicular adenopathy present. Skin: Skin is warm and dry. Psychiatric: Affect normal. Nursing note and vitals reviewed. ASSESSMENT/PLAN: 1. COPD with exacerbation (HCC) - ICD9: 491.21, ICD10: J44.1 (primary diagnosis) Rest, oral fluids, tylenol as needed for pain or fever See your doctor if not improving Seek emergency room care for worsening symptoms or condition changes Prednisone for airway congestion/wheezing/coughing - ALBUTEROL SULFATE 2.5 MG/3 ML (0.083 %) SOLUTION FOR NEBULIZATION - PREDNISONE 20 MG TABLET - DOXYCYCLINE MONOHYDRATE 100 MG CAPSULE 2. Wheezing - ICD9: 786.07, ICD10: R06.2 .- Discussed use of Prednisone 5 day course as needed for cough, wheeze, shortness of breath * Prednisone 40 mg (2 tablets) per day for 5 days, take in morning or early in day * Do not NSAIDs during this 5 day course (ibuprofen, naproxen, Motrin, Aleve, Advil) Tylenol only during prednisone use * Follow up with primary care provider if no improvement with treatmen * Seek medical care immediately, call 911, go to ER if you have chest pain, difficulty breathing, shortness of breath, inability to swallow. - ALBUTEROL SULFATE 2.5 MG/3 ML (0.083 %) SOLUTION FOR NEBULIZATION - PREDNISONE 20 MG TABLET - DOXYCYCLINE MONOHYDRATE 100 MG CAPSULE Diagnosis and treatment plan were discussed and questions were answered to the patient's satisfaction. Pt acknowledged understanding of concepts and follow up plan. Specific signs and symptoms that would indicate the need for higher level of care were discussed in detail warranting prompt ER evaluation. CAROLINE Zee APRN.CNP 10/12/2017 3:52 PM Signed ASSESSMENT/PLAN: 1. COPD with exacerbation (HCC) - ICD9: 491.21, ICD10: J44.1 (primary diagnosis) Rest, oral fluids, tylenol as needed for pain or fever See your doctor if not improving Seek emergency room care for worsening symptoms or condition changes Prednisone for airway congestion/wheezing/coughing - ALBUTEROL SULFATE 2.5 MG/3 ML (0.083 %) SOLUTION FOR NEBULIZATION - PREDNISONE 20 MG TABLET - DOXYCYCLINE MONOHYDRATE 100 MG CAPSULE 2. Wheezing - ICD9: 786.07, ICD10: R06.2 .- Discussed use of Prednisone 5 day course as needed for cough, wheeze, shortness of breath * Prednisone 40 mg (2 tablets) per day for 5 days, take in morning or early in day * Do not NSAIDs during this 5 day course (ibuprofen, naproxen, Motrin, Aleve, Advil) Tylenol only during prednisone use * Follow up with primary care provider if no improvement with treatmen * Seek medical care immediately, call 911, go to ER if you have chest pain, difficulty breathing, shortness of breath, inability to swallow. - ALBUTEROL SULFATE 2.5 MG/3 ML (0.083 %) SOLUTION FOR NEBULIZATION - PREDNISONE 20 MG TABLET - DOXYCYCLINE MONOHYDRATE 100 MG CAPSULE Jessica Pierce LPN 10/12/2017 4:28 PM Signed 2.5 solution aerosol treatment given per doctor's orders. Prior to treatment O2 Sat is 94%. Treatment completed. O2 sat is 94%. Tolerated well. Jessica Pierce LPN Referring Provider: SELF [[id number]] Allergies As of Date: 10/12/2017 Noted Allergy Reaction CATS 09/22/2007 14 - Other: See Comments Comments: States that he isn't allergic to it FEATHERS 09/22/2007 - Other: See Comments Comments: States that he isn't allergic to it Date Reviewed: 10/12/2017 [facility]ed [facility]: [facility] Missy - Fully Assessed Reason for Visit: Cough [28] Cmt: AND SOB X 1 wk, phlegm is yellow AND red tinged. Primary Visit Diagnosis:COPD with exacerbation ([facility]) [J44.1] Other Visit Diagnosis:Wheezing [R06.2] Order(s):[] albuterol 2.5 mg /3 mL (0.083 %) 2.5 mg (PROVENTIL)Disp: Rfl: predniSONE (DELTASONE) 20 mg tabletTake 2 tablets by mouth once daily for 5 days.Disp: 10 tabletRfl: 0 doxycycline monohydrate (MONODOX) 100 mg capsuleTake 1 capsule by mouth twice daily for 10 days.Disp: 20 capsuleRfl: 0 Prescriptions as of 10/12/2017 Sig: TAMSULOSIN 0.4 MG CAPSULE TAKE 1 CAPSULE DAILY AT BEDTI* IPRATROPIUM 20 MCG-ALBUTEROL * Inhale 1 Puff as instructed f* ALBUTEROL SULFATE 2.5 MG/3 ML* USE 1 VIAL (3 MLS) VIA NEBULI* OCUVITE ORAL Take by mouth. LISINOPRIL 10 MG TABLET Take 10 mg by mouth once phil* * PLAVIX 75 MG TABLET Take one(1) tablet daily. * LIPITOR 80 MG TABLET Take one(1) tablet daily. * ADULT LOW DOSE ASPIRIN 81 MG * Take one(1) tablet daily. * METOPROLOL TARTRATE 50 MG TAB* Take one(1) tablet daily. PREDNISONE 20 MG TABLET Take 2 tablets by mouth once * DOXYCYCLINE MONOHYDRATE 100 M* Take 1 capsule by mouth twice* Problem List As Of Date 10/12/2017 Noted Resolved Coronary atherosclerosis [I25.10] INVALID FOR* Chronic obstructive airway disease with asthma *INVALID FOR* History of aortic valve replacement [Z95.2] INVALID FOR* CVA [I67.89] INVALID FOR* ALLERGIC RHINITIS NOS [J30.9] INVALID FOR* Nonexudative senile macular degeneration of ret*INVALID FOR* Other vitreous opacities - Both Eyes [H43.399] INVALID FOR* Pseudophakia of both eyes [Z96.1] INVALID FOR* Chronic diastolic CHF (congestive heart failure*INVALID FOR* Age-related macular degeneration, dry, both eye*INVALID FOR* Vitreous floaters of both eyes [H43.393] INVALID FOR* Dry eye syndrome [H04.129] INVALID FOR* Exudative age-related macular degeneration, lef*INVALID FOR* Nonexudative age-related macular degeneration, *INVALID FOR* After-cataract obscuring vision [H26.499] INVALID FOR* Other instructions from your clinician: ASSESSMENT/PLAN: 1. COPD with exacerbation (HCC) - ICD9: 491.21, ICD10: J44.1 (primary diagnosis) Rest, oral fluids, tylenol as needed for pain or fever See your doctor if not improving Seek emergency room care for worsening symptoms or condition changes Prednisone for airway congestion/wheezing/coughing - ALBUTEROL SULFATE 2.5 MG/3 ML (0.083 %) SOLUTION FOR NEBULIZATION - PREDNISONE 20 MG TABLET - DOXYCYCLINE MONOHYDRATE 100 MG CAPSULE 2. Wheezing - ICD9: 786.07, ICD10: R06.2 .- Discussed use of Prednisone 5 day course as needed for cough, wheeze, shortness of breath * Prednisone 40 mg (2 tablets) per day for 5 days, take in morning or early in day * Do not NSAIDs during this 5 day course (ibuprofen, naproxen, Motrin, Aleve, Advil) Tylenol only during prednisone use * Follow up with primary care provider if no improvement with treatmen * Seek medical care immediately, call 911, go to ER if you have chest pain, difficulty breathing, shortness of breath, inability to swallow. - ALBUTEROL SULFATE 2.5 MG/3 ML (0.083 %) SOLUTION FOR NEBULIZATION - PREDNISONE 20 MG TABLET - DOXYCYCLINE MONOHYDRATE 100 MG CAPSULE Visit Notes: >> Jessica Pierce LPN e Oct 12, 2017 4:27 PM Status: Signed 2.5 solution aerosol treatment given per doctor's orders. Prior to treatment O2 Sat is 94%. Treatment completed. O2 sat is 94%. Tolerated well. Jessica Pierce LPN Prescriptions ordered this encounter Disp Refills Start End ALBUTEROL SULFATE 2.5 MG/3 ML (0.083* 10/12/2017 10/12/2017 Route: INHALATION PREDNISONE 20 MG TABLET 10 t* 0 10/12/2017 10/17/2017 Route: ORAL Sig: Take 2 tablets by mouth once daily for 5 days. DOXYCYCLINE MONOHYDRATE 100 MG CAPSU* 20 c* 0 10/12/2017 10/22/2017 Route: ORAL Sig: Take 1 capsule by mouth twice daily for 10 days. Medications Discontinued During This Encounter FAMOTIDINE (PEPCID AC ORAL) 10/12/2017 Class: Historical Med Route: ORAL Sig: Take by mouth. Disc: Course of therapy completed budesonide-formoterol (SYMBICORT) 16* 1 In* 11 11/06/2016 10/12/2017 Route: INHALATION Sig: Inhale 2 Puffs as instructed twice daily. Patient not taking: Reported on 10/12/2017 Disc: Course of therapy completed Encounter Status:Closed by BETSY LOUIS CNP on 10/12/17 PROGRESS Observed: 08/25/2017 Status: COMPLETED Source: HAMEL 5:11 PM [facility] REPOSITORY O ID: [id number] Author: Beckie Shanks Service: (none) Author Type: Physician Type: Progress Notes Filed: 08/26/2017 4:23 PM Note Text: ASSESSMENT/PLAN: Last dilated fundus exam: June 24, 2017 H35.3221 Exudative age-related macular degeneration, left eye, with active choroidal neovascularization (HCC) (primary encounter diagnosis) Comment: onset within the last 2 months or so - recommend anti-VEGF therapy - s/p Avastin x 5 (06/24/2017) AND s/p Eylea x 2 (Apr 2017) - was in [place] until April 2017 and was seen there in Jan, Mar and Apr when he had Avastin and Eylea - patient says [employer] coverage is good for Beckie Shanks MD for Eylea - subretinal fluid resolved on OCT today - recommend Eylea today left eye and follow up in 8-10 weeks for Eylea H35.3112 Nonexudative age-related macular degeneration, right eye, intermediate dry stage Comment: AREDS supplementation, Amsler grid testing, and the warnings regarding the transformation from the dry form to the wet form of Age related macular degeneration were recommended to the patient. Z96.1 Pseudophakia of both eyes Comment: stable/obs Any documentation recorded by the scribe accurately reflects the service I personally performed and the decisions made by myself, Beckie Shanks MD. I have confirmed and edited as necessary the relevant ophthalmic history, ROS, and the neuro exam findings as obtained by others. I have seen and examined Elodia Del Cid. I have discussed the case and the management of this patient's care with the Resident/Fellow, if applicable. I also have reviewed and agree with the assessment and plan as stated above and agree with all of its relevant components. 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, left eye, with active choroidal neovascularization (HCC) (primary encounter diagnosis) Comment: onset within the last 2 months or so - recommend anti-VEGF therapy - s/p Avastin x 4 (Jan 2017) AND s/p Eylea x 2 (Apr 2017) - was in [place] until April 2017 and was seen there in Jan, Mar and Apr when he had Avastin and Eylea - recommend repeat Avastin today and follow up in 4-6 weeks for Avastin vs Eylea left eye - change [employer] coverage to Beckie Shanks MD as physician and then start with Eylea injections - now returning to [place] from [place] H35.3112 Nonexudative age-related macular degeneration, right eye, intermediate dry stage Comment: AREDS supplementation, Amsler grid testing, and the warnings regarding the transformation from the dry form to the wet form of Age related macular degeneration were recommended to the patient. Z96.1 Pseudophakia of both eyes Comment: stable/obs Any documentation recorded by the scribe accurately reflects the service I personally performed and the decisions made by myself, Beckie Shanks MD. I have confirmed and edited as necessary the relevant ophthalmic history, ROS, and the neuro exam findings as obtained by others. I have seen and examined Elodia Del Cid. I have discussed the case and the management of this patient's care with the Resident/Fellow, if applicable. I also have reviewed and agree with the assessment and plan as stated above and agree with all of its relevant components. ALLERGIES ALLERGIES DATE TYPE / CODE NAME / CODE REACTION SEVERITY SOURCE 10/20/2017 Drug No Known Unknown [facility] Allergy/416 Allergies/F0019 [facility] [id number](SNOM 21844(RXNORM) Repository ED CT) 09/22/2007 Animal/4201 CATS OTHER: SEE [facility] [address]644(SNOME Main [place] D CT) Repository 09/22/2007 DRUG FEATHERS OTHER: SEE [facility] INGREDI/[address] [place] [address] [id number](SNOM Repository ED CT) ENCOUNTERS ENCOUNTERS ADMIT/DISCHARGE ACCOUNT ADMITTING ENCOUNTER LOCATION SOURCE NUMBER CLASS 01/25/2018/01/26/20 [id number] Emergency [address] ing:ED Repository 01/25/2018/01/26/20 [id number] Ambulatory [address] Repository 12/20/2017/12/22/19 [id number] Ambulatory [address] Repository 12/16/2017/12/18/19 [id number] Ambulatory [address] Repository 10/21/2017/10/23/19 [id number] Ambulatory [address] Repository 10/20/2017/10/21/19 [id number] Ambulatory BMSBuilding:Hiral Allred [address] .[facility] Repository 10/20/2017 [id number] Ambulatory [facility] ing:LAB Repository 10/19/2017 [id number] Ambulatory BMSBuilding:Hiral Allred MS.[facility] Repository 10/12/2017/10/15/19 [id number] Ambulatory [address] Repository 08/26/2017/08/28/19 [id number] Ambulatory [address] Repository 06/24/2017/06/26/[id number] Repository PAYERS PAYERS ENCOUNTER GUARANTOR PAYER SUBSCRIBER SOURCE 01/25/2018 ELODIA Blackman Primary ELODIA Blackman [place] [id number] Insurance:ANTHEM DAWSONDOB: Community [employer]ARE [place]olic [id number]: Repository [id number]: 330 [id number] [phone] (HP) Date:[id number] [address] [place] [address] 39019LO: 01/25/2018 Secondary NOT GIVENUNK [place] Insurance:SELF PAY [facility] Number: Effective Repository Date:2018-01-25 10/20/2017 ELODIA Blackman Primary ELODIA Blackman [place] [id number] Insurance:ANTHEM DAWSONDOB[facility] OPolicy [id number] Number: Repository [id number]: ([phone] [id number] [phone] (HP) Date:1108-86-47LH [address] [place] [address] 65997OU: 10/20/2017 Secondary NOT GIVENUNK [place] Insurance:SELF PAY [facility] Number: Effective Repository Date:2017-07-13 10/20/2017 ELODIA B Primary ELODIA B [place] [id number] Insurance:ANTHEM DAWSONDOB: [facility] [id number] Number: Repository [id number]: 330 [id number] [phone] (HP) Date:2319-35-30TB [address] [place] [address]RB: 10/20/2017 Secondary NOT GIVENUNK [place] Insurance:SELF PAY [facility] Number: Effective Repository Date:2017-10-20 10/19/2017 ELODIA Blackman Primary ELODIA Allred [id number] Insurance:FATOUMATA DAWSON: Community SHREVE MEDICARE PPOPolicy [id number], [place] Number: Repository [id number]: ([phone] [id number] [phone] () Date:[id number] [address], [place] [address]HQ: 10/19/2017 Secondary NOT GIVENUNK [place] Insurance:SELF PAY [facility] Number: Effective Repository Date:2017-10-19
== END 2018-01-25 15:31 | disposition home or self-care (01) ==
PROVIDERS: Emergency Provider Emergency Medicine; Family Provider Family Medicine; PCP Family Medicine
DX: J42 Unspecified chronic bronchitis (principal); Z87.891 Personal history of nicotine dependence; E78.00 Pure hypercholesterolemia, unspecified; I10 Essential (primary) hypertension; Z86.73 Personal history of transient ischemic attack (TIA), and cerebral infarction without residual deficits; R00.2 Palpitations
CPT/HCPCS: 71046; 80048; 85025; 94640; 99285; A4216

== ENCOUNTER 2018-06-25 10:47 | Emergency (ER) | payer MEDICARE, SELFPAY ==
[2018-06-25 10:48] VITALS: BP 142/78; PULSE 35; RESP 16; TEMP 36.2; O2SAT 95; BMI 17.9
--- NOTE | 2018-06-25 11:10 | EKG12_ITS ---
Test Reason : BRADYCARDIA Blood Pressure : / mmHG Vent. Rate : 072 BPM Atrial Rate : 072 BPM P-R Int : 194 ms QRS Dur : 108 ms QT Int : 420 ms P-R-T Axes : 080 031 -38 degrees QTc Int : 459 ms Sinus rhythm with frequent Premature ventricular complexes in a pattern of bigeminy Inferior infarct (cited on or before 24-NOV-1997), age undetermined Anterior infarct , age undetermined , cannot be excluded Low voltage QRS (Limb leads) Abnormal ECG Confirmed by IRAIDA GONZALES, JAE ([id number]), purchasing expeditor MARQUEZ RITTER ([id number]) on 06/27/2018 12:02:24 PM Referred By: KIMMY/CECILIA Confirmed By:JAE KHOURY MD
[2018-06-25 11:29] LABS: Absolute Lymphocyte Count 2.28 X10^3/ul (0.83-4.51); Absolute Neutrophil Count 3.9 X10^3/uL (2.0-7.7); Basophil# 0.02 X10^3/uL; Basophil% 0.3 % (0-1); Eosinophil# 0.14 X10^3/uL; Eosinophils% 1.9 % (0-5); Hematocrit 41.5 % (40-54); Hemoglobin 13.9 g/dl (13.0-16.5); Lymphocyte # 2.28 X10^3/ul (4.0); Lymphocyte % 31.5 % (19-41); Mean Corp Hgb Conc 33.5 g/gl (32-36); Mean Corpuscular Hgb 29.1 pg (27.0-32.0); Mean Platelet Vol. 10.5 fl (6.2-12.0); Monocyte# 0.91 X10^3/uL; Monocyte% 12.6 % (0-10); Neutrophil # 3.87 X10^3/uL (2.7-7.7); Neutrophil % 53.6 % (47-70); POSITIVE COUNT NO; POSITIVE DIFFERENTIAL NO; POSITIVE MORPHOLOGY NO; Platelet Count 221 K/mm3 (150-450); RBC Distribution Width CV 13.4 % (11.6-14.6); RBC Distribution Width SD 42.7 fl (35.1-43.9); Red Blood Count 4.77 M/mm3 (4.6-6.2); White Blood Count 7.2 K/mm3 (4.4-11.0)
--- NOTE | 2018-06-25 11:35 | RAD_ITS ---
STUDY: X-RAY CHEST REASON FOR EXAM: Male, 82 years old. Dyspnea TECHNIQUE: PA and lateral views of the chest. COMPARISON: January 25, 2018 FINDINGS: There are monitoring devices. There is hyperinflation of the lungs consistent with chronic obstructive lung disease (COPD). There is right lower lung increased opacification. There is right perihilar scarring or atelectasis. There is blunting of the costophrenic angles. Sternal cerclage wires and vascular clips are present from a prior sternotomy and coronary artery bypass graft procedure (CABG). Normal mediastinum and delma. Normal visualized pulmonary arteries. Normal visualized aortic arch and descending thoracic aorta. There is demineralization of the osseous structures. Normal visualized ribs, clavicles, and shoulders. There is no demonstrated abnormality of the visualized soft tissue structures of the upper abdomen. RAD/Chest PA and Lateral IMPRESSION: COPD with right lower lung infiltrate. Electronically Signed: Biju Ruiz MD at 11:55 EDT , Service support ,
[2018-06-25 11:43] LABS: Anion Gap 4 (5-15); BUN 20 mg/dL (7-18); BUN/Creat Ratio 18.5 RATIO (10-20); Calcium,Total 9.5 mg/dL (8.5-10.1); Chloride 105 mmol/L (98-107); Creatinine, Serum 1.08 mg/dL (0.70-1.30); EST Glomerular Filtration Rate 69 mL/min (>60); Est Glom Filt Rate - Afr Amer 84 mL/min (>60); Estimated Creatinine Clearance 42.89 ml/min; Glucose 110 mg/dL (74-106); Magnesium 1.6 mg/dL (1.6-2.6); Potassium 4.3 mmol/L (3.5-5.1); Sodium Level 139 mmol/L (136-145)
[2018-06-25 12:04] VITALS: BP 144/69; PULSE 61; RESP 14; O2SAT 97
--- NOTE | 2018-06-25 12:52 | ED.DCSUM_ITS ---
- ER Visit Summary Date of Service: 06/25/18 Chief Complaint: Bradycardia History of Present Illness: The patient is a 82 M who was sent to the emergency department by urgent care for heart rate in the 30s. Patient notes for about the past week to week and a half he is felt wheezing and has had a cough. He states that he is concerned about pneumonia. Reports a history of asthma but may actually be COPD. He has a history of nonrheumatic aortic stenosis as well as coronary artery disease having had a CABG as well as aortic valve replacement. Patient sees Dr. Calixto and Dr. Martino. The patient states that during this timeframe he has had no pep. He states that he has had heart rates in the 30s before. He denies any syncope or near syncope. Been using albuterol aerosol 3 times a day. Physical Examination: Afebrile noted heart rate of 35 blood pressure 142/78 Gen: Well-nourished well-developed Head: Normocephalic atraumatic Eyes: Perrl EOMI ENT: TMs clear no rhinorrhea moist mucous membranes Neck: Supple no lymphadenopathy no JVD nontender CVS: Regular bradycardic rhythm no murmurs normal S1-S2 Respiratory: No distress slight expiratory wheeze chest nontender Abdomen: Soft nontender nondistended normal bowel sounds no masses Back: Nontender Extremity: Nontender no edema Skin: Normal color no rash Neuro: alert orientated ?3 CN II-XII intact normal strength sensation reflexes gait cerebellar Psych: Normal affect normal mood Test Results: EKG shows a sinus bigeminy rhythm. Bigeminy appears to be ventricular. CBC chemistries magnesium troponin negative. Chest x-ray shows COPD-like changes. Emergency Department Course and Treatment: Patient was started on prednisone and azithromycin. I spoke with Dr. Rizzo related to decrease his metoprolol from 50 to 25 mg. Patient to follow-up in the office return if worsening or concerns. Impression: 1. Asthma exacerbation 2. Sinus bigeminy This note was generated with [employer] dictation software. It may contain incorrect words, spelling, and punctuation that were not noted in review of the chart prior to signing ED Disposition - Plan for ED Patient: Disposition: Home or Assisted Living Instructions: ED Bronchitis Asthmatic Prescriptions: Azithromycin [Zithromax Z-Hammad] 250 mg PO UD #1 box Prednisone [Deltasone] 40 mg PO DAILY #10 tab Referrals: Rm Calixto MD [Primary Care Provider] - 1 Week Daniel Martino MD [STAFF PHYSICIAN] - 1 Week Additional Instructions: Decrease metoprolol to 25 mg instead of 50 mg
[2018-06-25 13:05] VITALS: BP 144/62; PULSE 65; RESP 20; O2SAT 97
== END 2018-06-25 13:06 | disposition home or self-care (01) ==
PROVIDERS: Emergency Provider Emergency Medicine; Family Provider Family Medicine; PCP Family Medicine
DX: J45.901 Unspecified asthma with (acute) exacerbation (principal); R00.8 Other abnormalities of heart beat; I49.3 Ventricular premature depolarization; I25.10 Atherosclerotic heart disease of native coronary artery without angina pectoris; I35.0 Nonrheumatic aortic (valve) stenosis; I10 Essential (primary) hypertension; E78.00 Pure hypercholesterolemia, unspecified; Z86.73 Personal history of transient ischemic attack (TIA), and cerebral infarction without residual deficits; Z95.1 Presence of aortocoronary bypass graft; Z95.2 Presence of prosthetic heart valve; Z79.82 Long term (current) use of aspirin; Z79.899 Other long term (current) drug therapy
CPT/HCPCS: 71046; 80048; 83735; 84484; 85025; 93005; 99284; A4216

== ENCOUNTER → 2018-07-06 14:41 | Outpatient (CLI) | payer MEDICARE, SELFPAY ==
[2018-06-25 10:48] VITALS: BMI 17.9
[2018-07-06 16:59] LABS: Absolute Neutrophil Count 5.1 X10^3/uL (2.0-7.7); Basophil# 0.01 X10^3/uL; Basophil% 0.1 % (0-1); Eosinophil# 0.19 X10^3/uL; Eosinophils% 2.3 % (0-5); Hematocrit 42.1 % (40-54); Hemoglobin 13.5 g/dl (13.0-16.5); Lymphocyte % 25.3 % (19-41); Mean Corp Hgb Conc 32.1 g/gl (32-36); Mean Corpuscular Volume 87.3 fL (80-94); Mean Platelet Vol. 11.1 fl (6.2-12.0); Monocyte# 0.83 X10^3/uL; Neutrophil # 5.14 X10^3/uL (2.7-7.7); Neutrophil % 61.8 % (47-70); POSITIVE COUNT NO; POSITIVE DIFFERENTIAL NO; POSITIVE MORPHOLOGY NO; Platelet Count 234 K/mm3 (150-450); RBC Distribution Width CV 13.6 % (11.6-14.6); Red Blood Count 4.82 M/mm3 (4.6-6.2); White Blood Count 8.3 K/mm3 (4.4-11.0)
[2018-07-06 17:34] LABS: Vitamin D,25 Hydroxy 17.3 ng/mL (29.95-100.01)
[2018-07-06 17:41] LABS: ALB/GLOB Ratio 0.8 RATIO (0.9-2.4); AST(SGOT) 18 U/L (15-37); Alanine Aminotransfer ALT/SGPT 28 U/L (16-61); Alkaline Phosphatase 112 U/L (45-117); Anion Gap 6 (5-15); BUN 22 mg/dL (7-18); BUN/Creat Ratio 20.6 RATIO (10-20); Calcium,Total 9.1 mg/dL (8.5-10.1); Chloride 107 mmol/L (98-107); Cholesterol 135 mg/dL (200); Creatinine, Serum 1.07 mg/dL (0.70-1.30); EST Glomerular Filtration Rate 70 mL/min (>60); Est Glom Filt Rate - Afr Amer 85 mL/min (>60); Glucose 110 mg/dL (74-106); High Density Lipoprotein 50 mg/dL; Potassium 3.8 mmol/L (3.5-5.1); Sodium Level 139 mmol/L (136-145); Thyroid Stim Hormone (TSH) 1.46 uIU/mL (0.358-3.74); Triglycerides 86 mg/dL; Very Low Density Lipoprotein 17 mg/dL (5-40)
== END ==
PROVIDERS: Family Provider Family Medicine; PCP Family Medicine; Visit Provider Family Medicine Geriatric Medicine
DX: E55.9 Vitamin D deficiency, unspecified (principal); R53.83 Other fatigue; E78.5 Hyperlipidemia, unspecified
CPT/HCPCS: 36415; 80053; 80061; 82306; 84443; 85025

== ENCOUNTER → 2018-07-15 08:31 | Outpatient (CLI) | payer MEDICARE, SELFPAY ==
[2018-06-25 10:48] VITALS: BMI 17.9
[2018-07-08 08:44] VITALS: BMI 18.2
--- NOTE | 2018-07-15 08:36 | US_ITS ---
We are attempting to reach an attending provider to discuss findings. An addendum with communication details will be sent when the communication is complete. PROCEDURES: ULTRASOUND AORTA REASON FOR EXAM: Male, 82 years old. Abdominal aortic aneurysm without rupture TECHNIQUE: Ultrasound evaluation of the aorta was performed with real-time and static felder-scale imaging. COMPARISON: None. FINDINGS: There is no elongation or tortuosity of the abdominal aorta. Aorta measures: Proximal 1.6 cm. Middle 1.3 cm. Distal 1.6 cm. Aorta measure transversely: Proximal 1.1 cm. Middle 1.3 cm. Distal 1.7 cm. Iliac arteries are secured by bowel gas. There is no demonstrated aneurysm. A small anterior dissection or ulcerated plaque cannot be excluded anteriorly at the level of the distal abdominal aorta. Consider CTA correlation. US/Aorta IMPRESSION: No abdominal aortic aneurysm. A small anterior dissection or ulcerated plaque cannot be excluded anteriorly at the level of the distal abdominal aorta. Consider CTA correlation. Electronically Signed: Kedar Gavin MD at 16:52 EDT Tel , Service support ,
== END ==
PROVIDERS: Family Provider Family Medicine Geriatric Medicine; PCP Family Medicine Geriatric Medicine; Referring Provider Family Medicine Geriatric Medicine; Visit Provider Family Medicine Geriatric Medicine
DX: I71.4 Abdominal aortic aneurysm, without rupture (principal)
CPT/HCPCS: 76775

== ENCOUNTER → 2018-07-22 12:43 | Outpatient (CLI) | payer MEDICARE, SELFPAY ==
[2018-07-08 08:44] VITALS: BMI 18.2
--- NOTE | 2018-07-22 12:47 | CT_ITS ---
STUDY: CTA OF THE ABDOMINAL AORTA AND BILATERAL LOWER EXTREMITIES REASON FOR EXAM: Male, 82 years old. AAA. RADIATION DOSAGE (If Supplied By Facility): CTDIvol = ( 8.42 ) mGy, DLP = ( 918.47 ) mGycm TECHNIQUE: Axial CT angiography multi-detector data acquisition was obtained from the to the following intravenous administration of 100ML IV Isovue 370. Axial images and MIP images were reconstructed from the axial data set. Post-processing of the angiographic images was performed, with multiplanar reformation and 3D reconstruction. Individualized dose optimization techniques were used for this CT. TECHNICAL QUALITY: Good COMPARISON: None. Descriptors of Narrowing: None (0%) Mild (< 50%) Moderate (50-70%) Severe (70-90%) Subtotal/Total Occlusion (90-100%) Non-Evaluable (technically non-diagnostic FINDINGS: There is severe emphysema in the lung bases. Mild fibrotic atelectatic changes are noted on the right. Splenic calcifications are consistent with old granulomatous disease. There is mild left renal atrophy and scarring. Solid organs are otherwise unremarkable. Abdominal aorta: Extensive atherosclerotic calcification, with no demonstrated narrowing. Celiac and superior mesenteric arteries: No demonstrated narrowing. Inferior mesenteric artery: No demonstrated narrowing. Right renal artery(arteries): No demonstrated narrowing. Left renal artery(arteries): No demonstrated narrowing. Right common iliac artery: No demonstrated narrowing. Right external iliac artery: No demonstrated narrowing. Right internal iliac artery: No demonstrated narrowing. Left common iliac artery: No demonstrated narrowing. Left external iliac artery: No demonstrated narrowing. Left internal iliac artery: No demonstrated narrowing. RIGHT LOWER EXTREMITY Right common femoral artery: No demonstrated narrowing. Right profundus femoris: No demonstrated narrowing. Right superficial femoral: No demonstrated narrowing. Right popliteal artery: No demonstrated narrowing. Right tibioperoneal trunk: No demonstrated narrowing. Right anterior tibial artery: There is mild diffuse narrowing, with visualization of the vessel to the distal calf. Right posterior tibial artery: There is mild diffuse narrowing, with visualization of the vessel to the distal calf. Right peroneal artery: There is mild diffuse narrowing, with visualization of the vessel to the distal calf. LEFT LOWER EXTREMITY Left common femoral artery: No demonstrated narrowing. Left profundus femoris: No demonstrated narrowing. Left superficial femoral: No demonstrated narrowing. Left popliteal artery: No demonstrated narrowing. Left tibioperoneal trunk: No demonstrated narrowing. Left anterior tibial artery: There is moderate diffuse narrowing, with visualization of the vessel to the proximal calf. Left posterior tibial artery: There is mild diffuse narrowing, with visualization of the vessel to the distal calf. Left peroneal artery: There is mild diffuse narrowing, with visualization of the vessel to the distal calf. CT/CTA Abd w/Runoff W/WO Contrast IMPRESSION: 1. Diffuse atherosclerotic disease. 2. Mild to moderate narrowing of the left calf vessels. 3. COPD. 4. Old granulomatous disease. Electronically Signed: Darby Celis MD at 22:04 EDT Tel , Service support ,
== END ==
PROVIDERS: Family Provider Family Medicine Geriatric Medicine; PCP Family Medicine Geriatric Medicine; Referring Provider Family Medicine Geriatric Medicine; Visit Provider Family Medicine Geriatric Medicine
DX: I71.4 Abdominal aortic aneurysm, without rupture (principal)
CPT/HCPCS: 75635; Q9967

== ENCOUNTER → 2018-10-06 10:03 | Outpatient (CLI) | payer MEDICARE, SELFPAY ==
[2018-07-08 08:44] VITALS: BMI 18.2
[2018-10-06 12:37] LABS: Absolute Lymphocyte Count 1.74 X10^3/uL (0.83-4.51); Absolute Neutrophil Count 7.1 X10^3/uL (2.0-7.7); Basophil# 0.03 X10^3/uL; Basophil% 0.3 % (0-1); Eosinophil# 0.01 X10^3/uL; Eosinophils% 0.1 % (0-5); Hematocrit 41.2 % (40-54); Hemoglobin 13.2 g/dL (13.0-16.5); Lymphocyte # 1.74 X10^3/ul (4.0); Lymphocyte % 17.8 % (19-41); Mean Corpuscular Hgb 29.3 pg (27.0-32.0); Mean Corpuscular Volume 91.6 fL (80-94); Monocyte# 0.85 X10^3/uL; Monocyte% 8.7 % (0-10); NRBC Flagged by Analyzer 0 % (0-5); Neutrophil % 72.7 % (47-70); Platelet Count 227 K/mm3 (150-450); RBC Distribution Width CV 13.7 % (11.6-14.6); RBC Distribution Width SD 46.5 fl (35.1-43.9); White Blood Count 9.8 K/mm3 (4.4-11.0)
[2018-10-06 13:01] LABS: Vitamin D,25 Hydroxy 25.2 ng/mL (29.95-100.01)
[2018-10-06 13:04] LABS: ALB/GLOB Ratio 0.9 RATIO (0.9-2.4); AST(SGOT) 13 U/L (15-37); Alanine Aminotransfer ALT/SGPT 16 U/L (16-61); Albumin, Serum 3.2 g/dL (3.2-5.0); Alkaline Phosphatase 107 U/L (45-117); Anion Gap 6 (5-15); BUN 25 mg/dL (7-18); BUN/Creat Ratio 23.4 RATIO (10-20); Calcium,Total 9.6 mg/dL (8.5-10.1); Chloride 107 mmol/L (98-107); Creatinine, Serum 1.07 mg/dL (0.70-1.30); EST Glomerular Filtration Rate 70 mL/min (>60); Est Glom Filt Rate - Afr Amer 85 mL/min (>60); Globulin 3.7 g/dL (2.2-4.2); Glucose 149 mg/dL (74-106); Potassium 4.1 mmol/L (3.5-5.1); Protein, Total 6.9 g/dL (6.4-8.2); Sodium Level 140 mmol/L (136-145); Thyroid Stim Hormone (TSH) 2.21 uIU/mL (0.358-3.74)
== END ==
PROVIDERS: Family Provider Family Medicine Geriatric Medicine; PCP Family Medicine Geriatric Medicine; Visit Provider Family Medicine Geriatric Medicine
DX: R53.83 Other fatigue (principal); E55.9 Vitamin D deficiency, unspecified; E16.2 Hypoglycemia, unspecified; Z12.5 Encounter for screening for malignant neoplasm of prostate
CPT/HCPCS: 36415; 80053; 82306; 83036; 84153; 84443; 85025; G0103

== ENCOUNTER → 2018-10-26 09:16 | Outpatient (CLI) | payer MEDICARE, SELFPAY ==
[2018-07-08 08:44] VITALS: BMI 18.2
[2018-10-26 11:03] LABS: Absolute Lymphocyte Count 1.32 X10^3/uL (0.83-4.51); Absolute Neutrophil Count 16.2 X10^3/uL (2.0-7.7); Basophil# 0.03 X10^3/uL; Basophil% 0.2 % (0-1); Eosinophil# 0.01 X10^3/uL; Eosinophils% 0.1 % (0-5); Hematocrit 40.5 % (40-54); Lymphocyte # 1.32 X10^3/ul (4.0); Lymphocyte % 7.2 % (19-41); Mean Corp Hgb Conc 32.1 g/dL (32-36); Mean Corpuscular Hgb 29.4 pg (27.0-32.0); Mean Corpuscular Volume 91.6 fL (80-94); Mean Platelet Vol. 10.9 fl (6.2-12.0); Monocyte# 0.75 X10^3/uL; Monocyte% 4.1 % (0-10); NRBC Flagged by Analyzer 0 % (0-5); Neutrophil % 87.7 % (47-70); Platelet Count 223 K/mm3 (150-450); RBC Distribution Width CV 12.8 % (11.6-14.6); RBC Distribution Width SD 42.5 fl (35.1-43.9); Red Blood Count 4.42 M/mm3 (4.6-6.2); White Blood Count 18.4 K/mm3 (4.4-11.0)
[2018-10-26 11:17] LABS: Anion Gap 6 (5-15); BUN 31 mg/dL (7-18); BUN/Creat Ratio 23.5 RATIO (10-20); Chloride 104 mmol/L (98-107); Creatinine, Serum 1.32 mg/dL (0.70-1.30); EST Glomerular Filtration Rate 55 mL/min (>60); Est Glom Filt Rate - Afr Amer 67 mL/min (>60); Glucose 151 mg/dL (74-106); Potassium 4.3 mmol/L (3.5-5.1); Sodium Level 137 mmol/L (136-145)
--- NOTE | 2018-10-26 11:27 | RAD_ITS ---
STUDY: X-RAY CHEST REASON FOR EXAM: Male, 82 years old. Shortness breath and emphysema. TECHNIQUE: PA and lateral views. COMPARISON: 06/25/2018. FINDINGS: Pulmonary hyperinflation with flattening of the hemidiaphragms. Large bleb and/or bullous emphysema in the right lower lobe bullous changes in the right upper lobe and left lower lobe. Focal scarring in the right midlung. Ill-defined interstitial infiltrates in the left lung base. There is no demonstrated pleural abnormality. Normal size heart. Median sternotomy from prior aortic valve replacement. Normal delma. Normal visualized pulmonary arteries. Atherosclerotic calcifications along the thoracic aorta. Normal visualized thoracic spine. Normal visualized ribs, clavicles, and shoulders. There is no demonstrated abnormality of the visualized soft tissue structures of the upper abdomen. RAD/Chest PA and Lateral IMPRESSION: 1. Suspicious interstitial pneumonitis in the left lung base. 2. COPD with blebs and bullous changes in both lungs. 3. No other additional findings or changes since 06/25/2018. Electronically Signed: Freddy Castellanos MD at 12:28 EDT , Service support ,
== END ==
LOC: POLAB3 09:17 → RAD 11:26
PROVIDERS: Family Provider Family Medicine Geriatric Medicine; PCP Family Medicine Geriatric Medicine; Referring Provider Family Medicine Geriatric Medicine; Visit Provider Family Medicine Geriatric Medicine
DX: J18.9 Pneumonia, unspecified organism (principal); R05 Cough; R97.20 Elevated prostate specific antigen [PSA]
CPT/HCPCS: 36415; 71046; 80048; 84153; 85025; 87070; 87077; 87205; 87633

== ENCOUNTER → 2018-11-15 15:44 | Outpatient (CLI) | payer MEDICARE, SELFPAY ==
[2018-07-08 08:44] VITALS: BMI 18.2
--- NOTE | 2018-11-15 15:47 | RAD_ITS ---
STUDY: X-RAY CHEST REASON FOR EXAM: Male, 82 years old. Recent pneumonia, shortness of breath TECHNIQUE: PA and lateral COMPARISON: October 26, 2018 FINDINGS: Lungs are hyperinflated but clear. There is mild prominence of the interstitial markings in the left lower lobe. There is blunting of the costophrenic angles likely representing pleural thickening.. There is no demonstrated pleural abnormality. Normal size heart. Normal mediastinum and delma. Normal visualized pulmonary arteries. Tortuous mildly calcified aortic arch and descending thoracic aorta. Dorsal spine x-rays mild spondylosis. Normal visualized ribs, clavicles, and shoulders. Postop changes post median sternotomy and CABG. There is no demonstrated abnormality of the visualized soft tissue structures of the upper abdomen. There is has been significant clearing of prior pneumonia in left lower lobe RAD/Chest PA and Lateral IMPRESSION: COPD. Mild residual interstitial thickening in left lower lobe with significant improvement since previous study Electronically Signed: Vince Hobbs MD at 16:02 EDT , Service support ,
== END ==
PROVIDERS: Family Provider Family Medicine Geriatric Medicine; PCP Family Medicine Geriatric Medicine; Referring Provider Family Medicine Geriatric Medicine; Visit Provider Family Medicine Geriatric Medicine
DX: J14 Pneumonia due to Hemophilus influenzae (principal); R69 Illness, unspecified
CPT/HCPCS: 71046; 87070; 87205

== ENCOUNTER → 2018-11-24 16:56 | Outpatient (CLI) | payer MEDICARE, SELFPAY ==
[2018-07-08 08:44] VITALS: BMI 18.2
--- NOTE | 2018-11-24 17:05 | RAD_ITS ---
STUDY: X-RAY CHEST REASON FOR EXAM: Male, 83 years old. Shortness of breath. Cough and fever. Chills. TECHNIQUE: PA and lateral views of the chest. COMPARISON: November 15, 2018. FINDINGS: The lungs are hyperexpanded. There is stable density in the posterior left lower lobe. There is no new mass or infiltrate. There is a small right pleural effusion. Sternal cerclage wires are present from a prior sternotomy. The heart is normal in size and unchanged. Normal mediastinum and delma. Normal visualized pulmonary arteries. There is atherosclerotic calcification of the aortic arch with tortuosity. There are diffuse degenerative changes of the visualized thoracic spine. There is degenerative osteoarthritis of the bilateral shoulders. There is no demonstrated abnormality of the visualized soft tissue structures of the upper abdomen. RAD/Chest PA and Lateral IMPRESSION: No interval change. Electronically Signed: Efra Ventura DO at 17:35 EDT Tel [phone], Service support ,
== END ==
PROVIDERS: Family Provider Family Medicine Geriatric Medicine; PCP Family Medicine Geriatric Medicine; Referring Provider Family Medicine Geriatric Medicine; Visit Provider Family Medicine Geriatric Medicine
DX: R68.83 Chills (without fever) (principal); R06.02 Shortness of breath
CPT/HCPCS: 71046; 87633

== ENCOUNTER → 2018-11-25 12:48 | Outpatient (CLI) | payer MEDICARE, SELFPAY ==
[2018-07-08 08:44] VITALS: BMI 18.2
== END ==
PROVIDERS: Family Provider Family Medicine Geriatric Medicine; PCP Family Medicine Geriatric Medicine; Referring Provider Family Medicine Geriatric Medicine; Visit Provider Family Medicine Geriatric Medicine
DX: R05 Cough (principal)
CPT/HCPCS: 87070; 87205

== ENCOUNTER → 2018-12-28 07:31 | Outpatient (CLI) | payer MEDICARE, SELFPAY ==
[2018-12-21 06:03] VITALS: BMI 15.7
--- NOTE | 2018-12-28 14:54 | PFTCOMP ---
COMPLETE PULMONARY FUNCTION TEST INTERPRETATION Brief HPI: Patient is an 83 year old male, currently under the care of myself, who presents to [facility] for complete pulmonary function tests secondary to diagnosis of COPD. Respiratory therapist reports good effort and reproducible results. Interpretation: Forced expiration spirometry shows a severe large airways obstructive ventilatory defect with an FEV1 of 44% predicted. There is no significant bronchodilator response by strict ATS criteria. Spirograms are of good quality and plateau slowly, indicating slowly emptying areas of the lungs. The respiratory flow volume loop shows decreased expiratory flow rates at all lung volumes consistent with airway obstruction. Lung volumes by body plethysmography show decreased total lung capacity at 4.53 L, 69% predicted. All other lung volumes are reduced symmetrically. Diffusion capacity by carbon monoxide is at the lower limit of normal at 51% predicted. The airway resistance is elevated. No previous pulmonary function tests were available for review. Impression: Irreversible severe mixed ventilatory defect with symmetric reduction in diffusing capacity.
== END ==
PROVIDERS: Family Provider Family Medicine Geriatric Medicine; PCP Family Medicine Geriatric Medicine; Referring Provider Internal Medicine Critical Care Medicine; Visit Provider Internal Medicine Critical Care Medicine
DX: J44.9 Chronic obstructive pulmonary disease, unspecified (principal); R63.4 Abnormal weight loss
CPT/HCPCS: 94060; 94726; 94729

== ENCOUNTER 2018-12-29 18:29 | Emergency (ER) | payer MEDICARE, SELFPAY ==
[2018-12-21 06:03] VITALS: BMI 15.7
[2018-12-29 18:31] VITALS: BP 162/107; PULSE 90; RESP 18; TEMP 36.6; O2SAT 93; BMI 15.6
[2018-12-29] MEDS: Ondansetron 4 MG/2 ML Vial IV (19:37)
--- NOTE | 2018-12-29 19:40 | RAD_ITS ---
STUDY: X-RAY - LEFT HAND REASON FOR EXAM: Male, 83 years old. PT GOT FINGER CAUGHT IN A GARAGE DOOR, AND PULLED IT OUT, PAIN TECHNIQUE: 3 view(s) of the hand. COMPARISON: None. FINDINGS: A small chip fracture is present at the head of the fourth distal phalanx and associated with amputation of the surrounding soft tissues. There is amputation of the tip of the fifth finger and a irregular fracture through the head of the distal phalanx. No additional fractures are present. Small punctate calcifications are seen in the soft tissues of the second digit. Normal alignment of the bony structures. The joint spaces are preserved. RAD/Hand Min 3 Views IMPRESSION: Amputation soft tissue injuries and fractures of the distal phalanges of the fourth and fifth digits Electronically Signed: Cong Bryant MD at 19:59 EDT , Service support ,
[2018-12-29] MEDS: fentaNYL 100 MCG/2 ML Ampul 50 MCG IV ×2 (19:43→22:01)
[2018-12-29] MEDS: Cefazolin 1 GM/50 ML BAG IV (20:02)
--- NOTE | 2018-12-29 20:04 | ED.DCSUM_ITS ---
- ER Visit Summary Date of Service: 12/29/18 Chief Complaint: Left hand injury History of Present Illness: The patient is a 83 M presenting with left hand injury. Patient accidentally caught his left hand in a garage door just prior to arrival. He is on aspirin and Plavix. He has injury to his left fourth and fifth digit. No other injuries. Physical Examination: Vitals are stable. Patient is afebrile. Alert no acute distress. HEENT exam is unremarkable. Neck is supple. Lungs are clear and equal bilaterally. Heart is regular rate and rhythm. Extremities skin avulsion distal finger pad left fourth and fifth digit with bone exposure of the fourth digit and nail avulsion. Skin is warm and dry. No focal neurologic deficit. Remainder of exam is unremarkable. Emergency Department Course and Treatment: Patient was given tetanus, Ancef. He was given fentanyl and Zofran IV. Left hand x-ray shows amputation soft tissue injuries and fractures of the distal phalanges of the fourth and fifth digits. Discussed with Dr Chauhan, information technology specialist for [facility] hand surgery. He does not feel patient requires transfer to [facility]. He advises to irrigate and splint and he will see the patient tomorrow. Digital block was performed left fourth and fifth digit. Wound was copiously irrigated. Nonadherent dressing was applied. Ortho-Glass splint was applied. Patient tolerated this well. He will follow-up with orthopedic hand surgery tomorrow. Patient was given prescriptions for Nardin and Keflex. Advised return to ED for worsening complaints. Disposition: Discharge home Impression: Open tuft fracture left fourth and fifth digit This note was generated with [employer] dictation software. It may contain incorrect words, spelling, and punctuation that were not noted in review of the chart prior to signing ED Disposition - Plan for ED Patient: Instructions: FRACTURE, Finger (Open) Prescriptions: Cephalexin [Keflex] 500 mg PO Q6 #40 cap Prescription Printed Hydrocodone Bitart/Apap 5-325 [Nardin 5MG-325MG] 1 tab PO Q4H PRN PRN 2 Days #10 tab PRN Reason: Pain Prescription Printed Referrals: Ancelmo Scott Chi, MD [Primary Care Provider] -
[2018-12-29] MEDS: Diphth,Pertuss(Acell),Tet Vac 0.5 ML Vial IM (20:06)
--- NOTE | 2018-12-29 23:32 | ED.DEP ---
ED Disposition - Plan for ED Patient: Instructions: FRACTURE, Finger (Open) Prescriptions: Cephalexin [Keflex] 500 mg PO Q6 #40 capsule Referrals: Ancelmo Scott Chi, MD [Primary Care Provider] -
[2018-12-29 23:37] VITALS: BP 116/68; PULSE 74; RESP 16; O2SAT 94
--- NOTE | 2018-12-29 23:37 | DCINST.ED_ITS ---
ED Disposition - Plan for ED Patient: Instructions: FRACTURE, Finger (Open) Prescriptions: Cephalexin [Keflex] 500 mg PO Q6 #40 cap Hydrocodone Bitart/Apap 5-325 [[place] 5MG-325MG] 1 tablet PO Q4H PRN PRN 2 Days #10 tablet PRN Reason: Pain Referrals: Ancelmo Scott Chi, MD [Primary Care Provider] -
== END 2018-12-29 23:57 | disposition home or self-care (01) ==
PROVIDERS: Emergency Provider Emergency Medicine; Family Provider Family Medicine Geriatric Medicine; PCP Family Medicine Geriatric Medicine
DX: S62.635B Displaced fracture of distal phalanx of left ring finger, initial encounter for open fracture (principal); S62.637B Displaced fracture of distal phalanx of left little finger, initial encounter for open fracture; W23.0XXA Caught, crushed, jammed, or pinched between moving objects, initial encounter; Y92.59 Other trade areas as the place of occurrence of the external cause; Y99.9 Unspecified external cause status; Z79.02 Long term (current) use of antithrombotics/antiplatelets; Z79.82 Long term (current) use of aspirin
CPT/HCPCS: 73130; 90715; 96365; 96375; 99285; J7050; A4216; J2405; J3490

== ENCOUNTER → 2018-12-30 12:30 | Outpatient (CLI) | payer MEDICARE, SELFPAY ==
[2018-12-21 06:03] VITALS: BMI 15.7
[2018-12-30 13:28] LABS: Absolute Lymphocyte Count 3.04 X10^3/uL (0.83-4.51); Absolute Neutrophil Count 8.3 X10^3/uL (2.0-7.7); Basophil# 0.05 X10^3/uL; Basophil% 0.4 % (0-1); Eosinophil# 0.05 X10^3/uL; Eosinophils% 0.4 % (0-5); Hematocrit 36.6 % (40-54); Hemoglobin 11.6 g/dL (13.0-16.5); Lymphocyte # 3.04 X10^3/ul (4.0); Lymphocyte % 23.7 % (19-41); Mean Corp Hgb Conc 31.7 g/dL (32-36); Mean Corpuscular Hgb 28.6 pg (27.0-32.0); Mean Corpuscular Volume 90.4 fL (80-94); Mean Platelet Vol. 9.8 fl (6.2-12.0); Monocyte# 1.05 X10^3/uL; Monocyte% 8.2 % (0-10); NRBC Flagged by Analyzer 0 % (0-5); Neutrophil % 64.7 % (47-70); Platelet Count 329 K/mm3 (150-450); RBC Distribution Width CV 15.2 % (11.6-14.6); RBC Distribution Width SD 49.2 fl (35.1-43.9); Red Blood Count 4.05 M/mm3 (4.6-6.2); White Blood Count 12.8 K/mm3 (4.4-11.0)
== END ==
PROVIDERS: Family Provider Family Medicine Geriatric Medicine; PCP Family Medicine Geriatric Medicine; Referring Provider Internal Medicine Critical Care Medicine; Visit Provider Internal Medicine Critical Care Medicine
DX: D64.9 Anemia, unspecified (principal)
CPT/HCPCS: 36415; 85025

== ENCOUNTER → 2019-01-04 10:58 | Outpatient (CLI) | payer MEDICARE, SELFPAY ==
[2018-12-29 18:31] VITALS: BMI 15.6
[2019-01-04 13:14] LABS: Absolute Lymphocyte Count 2.27 X10^3/uL (0.83-4.51); Basophil# 0.05 X10^3/uL; Basophil% 0.4 % (0-1); Eosinophil# 0.05 X10^3/uL; Eosinophils% 0.4 % (0-5); Hematocrit 36.4 % (40-54); Hemoglobin 11.3 g/dL (13.0-16.5); Lymphocyte # 2.27 X10^3/ul (4.0); Lymphocyte % 18.1 % (19-41); Mean Corpuscular Volume 93.3 fL (80-94); Mean Platelet Vol. 10.2 fl (6.2-12.0); Monocyte# 1.01 X10^3/uL; Monocyte% 8.1 % (0-10); NRBC Flagged by Analyzer 0 % (0-5); Neutrophil # 9.03 X10^3/uL (2.7-7.7); Platelet Count 290 K/mm3 (150-450); RBC Distribution Width CV 15.9 % (11.6-14.6); RBC Distribution Width SD 53.4 fl (35.1-43.9); White Blood Count 12.5 K/mm3 (4.4-11.0)
[2019-01-04 13:36] LABS: Vitamin D,25 Hydroxy 24.4 ng/mL (29.95-100.01)
[2019-01-04 13:43] LABS: ALB/GLOB Ratio 0.7 RATIO (0.9-2.4); AST(SGOT) 17 U/L (15-37); Alanine Aminotransfer ALT/SGPT 23 U/L (16-61); Albumin, Serum 2.6 g/dL (3.2-5.0); Alkaline Phosphatase 93 U/L (45-117); Anion Gap 8 (5-15); BUN 16 mg/dL (7-18); BUN/Creat Ratio 18.2 RATIO (10-20); Calcium,Total 9.8 mg/dL (8.5-10.1); Chloride 105 mmol/L (98-107); Creatinine, Serum 0.88 mg/dL (0.70-1.30); EST Glomerular Filtration Rate 88 mL/min (>60); Est Glom Filt Rate - Afr Amer 106 mL/min (>60); Globulin 3.7 g/dL (2.2-4.2); Glucose 141 mg/dL (74-106); PSA,Total - Annual Screen 4.47 ng/mL (0.00-4.00); Potassium 3.6 mmol/L (3.5-5.1); Protein, Total 6.3 g/dL (6.4-8.2); Sodium Level 142 mmol/L (136-145); Thyroid Stim Hormone (TSH) 2.71 uIU/mL (0.358-3.74)
== END ==
PROVIDERS: Family Provider Family Medicine Geriatric Medicine; PCP Family Medicine Geriatric Medicine; Visit Provider Family Medicine Geriatric Medicine
DX: E55.9 Vitamin D deficiency, unspecified (principal); R53.83 Other fatigue; Z12.5 Encounter for screening for malignant neoplasm of prostate
CPT/HCPCS: 36415; 80053; 82306; 84153; 84443; 85025; G0103

== ENCOUNTER → 2019-01-10 16:59 | Outpatient (CLI) | payer MEDICARE, SELFPAY ==
[2018-12-29 18:31] VITALS: BMI 15.6
--- NOTE | 2019-01-10 17:00 | CT_ITS ---
STUDY: CT CHEST WITHOUT CONTRAST REASON FOR EXAM: Male, 83 years old. Unexplained weight loss, Otero's of breath RADIATION DOSAGE (If Supplied By Facility): CTDIvol = ( 8.32 ) mGy, DLP = ( 353.52 ) mGycm TECHNIQUE: Transaxial imaging was performed without the administration of intravenous contrast material. Individualized dose optimization techniques were used for this CT. COMPARISON: None. FINDINGS: The lungs are hyperaerated with emphysematous changes. Large bullae are noted bilaterally. Left lower lobe possible nodular scarring. Normal heart and pericardium. Granulomatous calcifications of the mediastinum and right hilar region. Mild mediastinal adenopathy. Normal unenhanced pulmonary arteries. Calcified aorta arch and descending thoracic aorta. Normal osseous structures. Granulomatous splenic calcifications. Bilateral nonobstructive renal calculi. Right renal cyst. CT/Chest without Contrast IMPRESSION: Diffuse emphysematous changes of the lungs. Probable nodular scar in the left lung base with atelectasis bilaterally. Mild mediastinal adenopathy. Electronically Signed: Hai Roa DO at 23:39 EST Tel [phone], Service support ,
== END ==
PROVIDERS: Family Provider Family Medicine Geriatric Medicine; PCP Family Medicine Geriatric Medicine; Referring Provider Internal Medicine Critical Care Medicine; Visit Provider Internal Medicine Critical Care Medicine
DX: J44.9 Chronic obstructive pulmonary disease, unspecified (principal); R63.4 Abnormal weight loss
CPT/HCPCS: 71250

== ENCOUNTER → 2019-01-30 09:44 | Outpatient (CLI) | payer MEDICARE, SELFPAY ==
[2019-01-19 06:05] VITALS: BMI 16.2
[2019-01-30 10:40] VITALS: PULSE 60; PULSE 69; PULSE 76; PULSE 80; PULSE 85; PULSE 86; PULSE 95; PULSE 99; O2SAT 87; O2SAT 90; O2SAT 92; O2SAT 95; O2SAT 97
--- NOTE | 2019-01-30 10:42 | CPS ---
Patient is 95% on room air while sitting. By the 3rd minute, SpO2 87% on room air. Placed patient on 2 lpm O2 SpO2 recovered to 97%. Patient walked the same distance in the last 3 minutes as he did in the first 3 minutes. SpO2 dropped to 87% at the very end of testing.
--- NOTE | 2019-01-30 12:17 | PCM.PSN.6M ---
PSN 6 Minute Walk Test - 6 Minute Walk Test 6 Minute Walk Test: 6 Minute Walk Test PSN:6-Minute Walk Test Start: 01/30/19 10:40 Freq: Status: Active Protocol: RESP.6MINW Document 01/30/19 10:40 ANDREZ (Rec: 01/30/19 10:45 ANDREZ [id number]) 6 Minute Walk Test Date Performed 01/30/19 Time Performed 10:00 Height 5 ft 11 in Weight: 52.617 kg Weight in Pounds 116.[address]: Deric Duran Assistive device used: None Pre-test Oxygen Delivery Method Room Air Pulse Ox (%) 95 Pulse Rate (60-100 beats/min) 76 Dyspnea Waldemar Scale (0-10) 0 Exertion Waldemar Scale (6-20) 6 1st minute Oxygen Delivery Method Room Air Pulse Ox (%) 90 Pulse Rate (60-100 beats/min) 85 2nd minute Oxygen Delivery Method Room Air Pulse Ox (%) 90 Pulse Rate (60-100 beats/min) 95 3rd minute Oxygen Delivery Method Room Air Pulse Ox (%) 87 Pulse Rate (60-100 beats/min) 99 4th minute Oxygen Flow Rate (L/min) (L/min) 2 Oxygen Delivery Method Nasal Cannula Pulse Ox (%) 95 Pulse Rate (60-100 beats/min) 69 5th minute Oxygen Flow Rate (L/min) (L/min) 2 Oxygen Delivery Method Nasal Cannula Pulse Ox (%) 92 Pulse Rate (60-100 beats/min) 80 6th minute Oxygen Flow Rate (L/min) (L/min) 2 Oxygen Delivery Method Nasal Cannula Pulse Ox (%) 87 Pulse Rate (60-100 beats/min) 86 Dyspnea Waldemar Scale (0-10) 4 Exertion Waldemar Scale (6-20) 12 Post-test Oxygen Flow Rate (L/min) (L/min) 3 Oxygen Delivery Method Nasal Cannula Pulse Ox (%) 97 Pulse Rate (60-100 beats/min) 60 Full Laps Walked 16 Partial Lap, Number of Tiles Walked 0 Total Distance Walked (ft) 944 01/30/19 10:42 Cardiopulmonary Services by [facility] Patient is 95% on room air while sitting. By the 3rd minute, SpO2 87% on room air. Placed patient on 2 lpm O2 SpO2 recovered to 97%. Patient walked the same distance in the last 3 minutes as he did in the first 3 minutes. SpO2 dropped to 87% at the very end of testing. Initialized on 01/30/19 10:42 - END OF NOTE - Interpretation Interpretation: The patient was noted to be 95% on room air, but desaturated to 87% in the third minute. In total, patient required 3 L nasal cannula to maintain appropriate saturations. In total, patient was able to travel 944 feet over the course of 6 minutes. No significant tachycardia was noted during testing. These findings are consistent with a respiratory limitation exercise tolerance. - Recommendations Recommendations: The patient requires no supplemental oxygen at rest, but should be using 3 L nasal cannula with any exertion.
== END ==
PROVIDERS: Family Provider Family Medicine Geriatric Medicine; PCP Family Medicine Geriatric Medicine; Referring Provider Internal Medicine Critical Care Medicine; Visit Provider Internal Medicine Critical Care Medicine
DX: J44.9 Chronic obstructive pulmonary disease, unspecified (principal); R63.4 Abnormal weight loss
CPT/HCPCS: 94618

== ENCOUNTER → 2019-04-12 | Outpatient (CLI) | payer MEDICARE, SELFPAY ==
[2019-01-19 06:05] VITALS: BMI 16.2
[2019-04-12 12:20] LABS: Absolute Lymphocyte Count 3.17 X10^3/uL (0.83-4.51); Absolute Neutrophil Count 6.1 X10^3/uL (2.0-7.7); Basophil# 0.04 X10^3/uL; Basophil% 0.4 % (0-1); Eosinophil# 0.04 X10^3/uL; Eosinophils% 0.4 % (0-5); Hematocrit 43.8 % (40-54); Lymphocyte # 3.17 X10^3/ul (4.0); Mean Corpuscular Volume 90.9 fL (80-94); Mean Platelet Vol. 11.2 fl (6.2-12.0); Monocyte# 1.11 X10^3/uL; Monocyte% 10.5 % (0-10); NRBC Flagged by Analyzer 0 % (0-5); Neutrophil # 6.07 X10^3/uL (2.7-7.7); Neutrophil % 57.3 % (47-70); Platelet Count 273 K/mm3 (150-450); RBC Distribution Width CV 12.2 % (11.6-14.6); RBC Distribution Width SD 40.5 fl (35.1-43.9); Red Blood Count 4.82 M/mm3 (4.6-6.2); White Blood Count 10.6 K/mm3 (4.4-11.0)
[2019-04-12 12:46] LABS: ALB/GLOB Ratio 0.9 RATIO (0.9-2.4); AST(SGOT) 13 U/L (15-37); Alanine Aminotransfer ALT/SGPT 28 U/L (16-61); Albumin, Serum 3.2 g/dL (3.2-5.0); Alkaline Phosphatase 95 U/L (45-117); Anion Gap 4 (5-15); BUN 35 mg/dL (7-18); Calcium,Total 10.1 mg/dL (8.5-10.1); Chloride 110 mmol/L (98-107); EST Glomerular Filtration Rate 76 mL/min (>60); Est Glom Filt Rate - Afr Amer 92 mL/min (>60); Globulin 3.4 g/dL (2.2-4.2); Glucose 88 mg/dL (74-106); Potassium 3.8 mmol/L (3.5-5.1); Protein, Total 6.6 g/dL (6.4-8.2); Sodium Level 144 mmol/L (136-145); Thyroid Stim Hormone (TSH) 2.13 uIU/mL (0.358-3.74)
== END | disposition home or self-care (01) ==
LOC: POLAB3 09:58
PROVIDERS: PCP Family Medicine Geriatric Medicine; Visit Provider Family Medicine Geriatric Medicine
DX: E55.9 Vitamin D deficiency, unspecified (principal); R53.83 Other fatigue
CPT/HCPCS: 36415; 80053; 82306; 84443; 85025

== ENCOUNTER → 2019-07-12 | Outpatient (CLI) | payer MEDICARE, SELFPAY ==
[2019-04-24 08:02] VITALS: BMI 16.3
[2019-07-12 12:25] LABS: Absolute Lymphocyte Count 3.01 X10^3/uL (0.83-4.51); Absolute Neutrophil Count 5.2 X10^3/uL (2.0-7.7); Basophil# 0.05 X10^3/uL; Basophil% 0.5 % (0-1); Eosinophil# 0.12 X10^3/uL; Eosinophils% 1.3 % (0-5); Hematocrit 41.1 % (40-54); Hemoglobin 13.1 g/dL (13.0-16.5); Lymphocyte # 3.01 X10^3/ul (4.0); Lymphocyte % 32.8 % (19-41); Mean Corp Hgb Conc 31.9 g/dL (32-36); Mean Corpuscular Hgb 29.4 pg (27.0-32.0); Mean Corpuscular Volume 92.4 fL (80-94); Mean Platelet Vol. 11.2 fl (6.2-12.0); Monocyte# 0.79 X10^3/uL; Monocyte% 8.6 % (0-10); NRBC Flagged by Analyzer 0 % (0-5); Neutrophil # 5.15 X10^3/uL (2.7-7.7); Neutrophil % 56.3 % (47-70); Platelet Count 232 K/mm3 (150-450); RBC Distribution Width CV 14.2 % (11.6-14.6); RBC Distribution Width SD 48.1 fl (35.1-43.9); Red Blood Count 4.45 M/mm3 (4.6-6.2); White Blood Count 9.2 K/mm3 (4.4-11.0)
[2019-07-12 12:40] LABS: Vitamin D,25 Hydroxy 33.6 ng/mL
[2019-07-12 12:47] LABS: ALB/GLOB Ratio 0.9 RATIO (0.9-2.4); AST(SGOT) 12 U/L (15-37); Alanine Aminotransfer ALT/SGPT 23 U/L (16-61); Albumin, Serum 3.2 g/dL (3.2-5.0); Alkaline Phosphatase 93 U/L (45-117); Anion Gap 4 (5-15); BUN 21 mg/dL (7-18); BUN/Creat Ratio 20.8 RATIO (10-20); Calcium,Total 10.2 mg/dL (8.5-10.1); Chloride 108 mmol/L (98-107); Creatinine, Serum 1.01 mg/dL (0.70-1.30); EST Glomerular Filtration Rate 75 mL/min (>60); Est Glom Filt Rate - Afr Amer 90 mL/min (>60); Globulin 3.5 g/dL (2.2-4.2); Glucose 121 mg/dL (74-106); Potassium 3.9 mmol/L (3.5-5.1); Protein, Total 6.7 g/dL (6.4-8.2); Sodium Level 142 mmol/L (136-145); Thyroid Stim Hormone (TSH) 3.09 uIU/mL (0.358-3.74)
== END | disposition home or self-care (01) ==
LOC: POLAB3 10:18
PROVIDERS: PCP Family Medicine Geriatric Medicine; Visit Provider Family Medicine Geriatric Medicine
DX: E55.9 Vitamin D deficiency, unspecified (principal); R53.83 Other fatigue
CPT/HCPCS: 36415; 80053; 82306; 84443; 85025

== ENCOUNTER → 2019-10-11 | Outpatient (CLI) | payer MEDICARE, SELFPAY ==
[2019-04-24 08:02] VITALS: BMI 16.3
[2019-10-11 10:43] LABS: Absolute Lymphocyte Count 2.65 X10^3/uL (0.83-4.51); Absolute Neutrophil Count 3.6 X10^3/uL (2.0-7.7); Basophil# 0.02 X10^3/uL; Basophil% 0.3 % (0-1); Eosinophil# 0.11 X10^3/uL; Eosinophils% 1.6 % (0-5); Hematocrit 43.6 % (40-54); Hemoglobin 13.8 g/dL (13.0-16.5); Lymphocyte # 2.65 X10^3/ul (4.0); Lymphocyte % 37.6 % (19-41); Mean Corp Hgb Conc 31.7 g/dL (32-36); Mean Corpuscular Hgb 28.7 pg (27.0-32.0); Mean Corpuscular Volume 90.6 fL (80-94); Monocyte# 0.63 X10^3/uL; Monocyte% 8.9 % (0-10); NRBC Flagged by Analyzer 0 % (0-5); Neutrophil % 51.2 % (47-70); Platelet Count 237 K/mm3 (150-450); RBC Distribution Width CV 13.2 % (11.6-14.6); RBC Distribution Width SD 43.3 fl (35.1-43.9); Red Blood Count 4.81 M/mm3 (4.6-6.2)
[2019-10-11 11:23] LABS: Vitamin D,25 Hydroxy 27.8 ng/mL
[2019-10-11 11:26] LABS: ALB/GLOB Ratio 0.7 RATIO (0.9-2.4); AST(SGOT) 14 U/L (15-37); Alanine Aminotransfer ALT/SGPT 22 U/L (16-61); Alkaline Phosphatase 107 U/L (45-117); Anion Gap 5 (5-15); BUN 27 mg/dL (7-18); BUN/Creat Ratio 26.5 RATIO (10-20); Calcium,Total 10.1 mg/dL (8.5-10.1); Chloride 104 mmol/L (98-107); Creatinine, Serum 1.02 mg/dL (0.70-1.30); EST Glomerular Filtration Rate 74 mL/min (>60); Est Glom Filt Rate - Afr Amer 89 mL/min (>60); Globulin 4.1 g/dL (2.2-4.2); Glucose 93 mg/dL (74-106); Potassium 4.2 mmol/L (3.5-5.1); Protein, Total 7.1 g/dL (6.4-8.2); Sodium Level 139 mmol/L (136-145); Thyroid Stim Hormone (TSH) 2.83 uIU/mL (0.358-3.74)
== END | disposition home or self-care (01) ==
LOC: POLAB3 10:06
PROVIDERS: PCP Family Medicine Geriatric Medicine; Visit Provider Family Medicine Geriatric Medicine
DX: E55.9 Vitamin D deficiency, unspecified (principal); R53.83 Other fatigue
CPT/HCPCS: 36415; 80053; 82306; 84443; 85025

== ENCOUNTER 2019-12-12 13:02 | Emergency (ER) | payer MEDICARE, SELFPAY ==
[2019-04-24 08:02] VITALS: BMI 16.3
[2019-12-12] VITALS (7 sets, daily range): BP systolic 100–145; BP diastolic 49–103; PULSE 44–65; RESP 13–22; TEMP 36.3; O2SAT 92–100; BMI 15.6
--- NOTE | 2019-12-12 13:17 | EKG12_ITS ---
Test Reason : CP Blood Pressure : / mmHG Vent. Rate : 067 BPM Atrial Rate : 067 BPM P-R Int : 190 ms QRS Dur : 108 ms QT Int : 430 ms P-R-T Axes : 080 069 -19 degrees QTc Int : 454 ms Sinus rhythm with frequent and consecutive Premature ventricular complexes Low voltage QRS Inferior infarct , age undetermined Cannot rule out Anterior infarct , age undetermined Abnormal ECG Confirmed by EUNICE GONZALES, DESTINY ([id number]), scientific editor MARQUEZ RITTER ([id number]) on 12/18/2019 8:47:26 A M Referred By: SOILA Confirmed By:JAKE DAWSON MD
[2019-12-12 13:25] LABS: Absolute Lymphocyte Count 2.17 X10^3/uL (0.83-4.51); Absolute Neutrophil Count 5.2 X10^3/uL (2.0-7.7); Basophil# 0.04 X10^3/uL; Basophil% 0.5 % (0-1); Eosinophil# 0.03 X10^3/uL; Eosinophils% 0.4 % (0-5); Hematocrit 40.6 % (40-54); Hemoglobin 12.8 g/dL (13.0-16.5); Lymphocyte # 2.17 X10^3/ul (4.0); Lymphocyte % 26.6 % (19-41); Mean Corp Hgb Conc 31.5 g/dL (32-36); Mean Corpuscular Hgb 28.4 pg (27.0-32.0); Mean Corpuscular Volume 90.2 fL (80-94); Mean Platelet Vol. 10.6 fl (6.2-12.0); Monocyte% 8.6 % (0-10); NRBC Flagged by Analyzer 0 % (0-5); Neutrophil % 63.5 % (47-70); Platelet Count 204 K/mm3 (150-450); RBC Distribution Width CV 14.3 % (11.6-14.6); RBC Distribution Width SD 47.2 fl (35.1-43.9); White Blood Count 8.2 K/mm3 (4.4-11.0)
[2019-12-12 13:43] LABS: Anion Gap 2 (5-15); BUN 29 mg/dL (7-18); BUN/Creat Ratio 29.7 RATIO (10-20); Chloride 108 mmol/L (98-107); Creatinine, Serum 0.98 mg/dL (0.70-1.30); EST Glomerular Filtration Rate 77 mL/min (>60); Est Glom Filt Rate - Afr Amer 94 mL/min (>60); Glucose 110 mg/dL (74-106); Potassium 4.1 mmol/L (3.5-5.1); Sodium Level 141 mmol/L (136-145)
--- NOTE | 2019-12-12 13:45 | EKG12_ITS ---
Test Reason : CHEST PAIN Blood Pressure : / mmHG Vent. Rate : 072 BPM Atrial Rate : 043 BPM P-R Int : 180 ms QRS Dur : 106 ms QT Int : 412 ms P-R-T Axes : 071 -76 -66 degrees QTc Int : 451 ms Sinus Rhythm with PVC's Indeterminate axis Low voltage QRS ST & T wave abnormality, consider inferior ischemia Abnormal ECG Confirmed by EUNICE GONZALES, DESTINY ([id number]), med spec MARQUEZ RITTER ([id number]) on 12/18/2019 8:45:26 A M Referred By: BERKLEY Confirmed By:JAKE DAWSON MD
--- NOTE | 2019-12-12 13:50 | RAD_ITS ---
STUDY: X-RAY CHEST REASON FOR EXAM: Male, 84 years old. CHEST PAIN TECHNIQUE: Single AP portable view of the chest. COMPARISON: 11/24/2018 FINDINGS: Status post median sternotomy. There is hyperinflation of the lungs consistent with chronic obstructive lung disease (COPD). There is no demonstrated pleural abnormality. Normal size heart. Normal mediastinum and delma. Normal visualized pulmonary arteries. Normal visualized aortic arch and descending thoracic aorta. Normal visualized thoracic spine. Normal visualized ribs, clavicles, and shoulders. There is no demonstrated abnormality of the visualized soft tissue structures of the upper abdomen. RAD/Chest 1 View (Portable) IMPRESSION: Emphysema without pneumonia or atelectasis. Electronically Signed: Derrick Collier MD at 14:39 EDT Tel , Service support ,
--- NOTE | 2019-12-12 14:12 | ED.VIS.CHEST ---
History of Present Illness Informant: Patient Onset: Today Activity at onset: - - woke him up Timing: Continuous Quality: Pain Location: Left Chest - without radiation/migration Current Severity: Mild Maximum Severity: Severe Worsened By: Nothing Relieved By: Nothing Associated Symptoms: Cough - chronic, no worse. Negative for: Nausea, Vomiting, Diaphoresis, Dyspnea, Fever, Lightheadedness, Palpitations Narrative: Nonpleuritic pain in the left chest that woke him up from sleep. Significantly improved, almost resolved, after taking aspirin, but he still has residual soreness in the left chest now. History of COPD but no symptoms of a flareup recently. Is a chronic cough that is largely unchanged. No edema in his legs, no pain. No history of DVT or PE. Has a history of cardiac stents, but states they were removed when he had a bypass and aortic valve replacement and those were about 17 years ago. 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 (3) Essential (primary) hypertension Status: Chronic (4) Hyperlipidemia Status: Chronic (5) Non-rheumatic aortic stenosis Status: Chronic (6) RLS (restless legs syndrome) Status: Chronic (7) Stage 3 severe COPD by GOLD classification Status: Chronic Comment: FEV1 44% <Biju Romero - Last Filed: 12/12/19 16:01> Past Medical History Surgical History: coronary bypass surgery, - - AVR Lives: Spouse/ Significant Other Smoking Status: Former smoker <Biju Romero - Last Filed: 12/12/19 16:01> <Prince Stevenson - Last Filed: 12/12/19 18:05> - Allergies and Home Meds Allergies/Adverse Reactions: Allergies No Known Allergies Allergy (Verified 12/12/19 13:12) Primary Care Physician: Daniel Martino MD [STAFF PHYSICIAN] - 5-7 Days Ancelmo Scott Chi, MD [Primary Care Provider] - 5-7 Days Review of Systems General: Denies: Chills, Fever, Sweats Eyes: Denies: Visual changes - bilaterally, Diplopia ENT: Denies: Bilateral ear pain, Rhinorrhea, Sore throat Cardiovascular: Reports: Chest pain. Denies: Palpitations Respiratory: Reports: Cough. Denies: Dyspnea, Dyspnea on exertion Gastrointestinal: Denies: Abdominal pain, Nausea, Vomiting, Diarrhea, Melena, Hematochezia Genitourinary: Denies: Dysuria, Hematuria, Frequency Musculoskeletal: Denies: Back pain, Swelling, Extremity Pain Skin: Denies: Rash, Wounds Neurological: Denies: Headache, Weakness, Numbness <Biju Romero - Last Filed: 12/12/19 16:01> Physical Exam Vital Signs/Narrative: Vital Signs Temp Pulse Resp BP Pulse Ox 12/12/19 13:31 65 22 H 138/65 H 12/12/19 13:03 97.3 F L 44 L 16 145/103 H 92 Inital Vital Signs reviewed: Yes General: Well nourished, Well developed, No Acute Distress Head: Normocephalic, Atraumatic Eyes: Perrl, EOMI ENT: Moist mucous membranes, No rhinorrhea Neck: Supple, Nontender, No JVD Cardiovascular: Regular rate, Regular rhythm Respiratory: No distress, CTA bilaterally, Chest nontender Abdomen: Soft, Nontender, Nondistended, Normal bowel sounds Back: Nontender, Normal Inspection Extremities: Nontender, No edema. Negative for: Calf Tenderness Skin: Normal color, No rash, No Trauma Neurological: Alert, Oriented x3, Cranial nerves II-XII grossly intact, Normal Strength, Normal Sensation Psychological: Normal affect, Normal Mood <iBju Romero - Last Filed: 12/12/19 16:01> Vital Signs/Narrative: Vital Signs Pulse Resp BP Pulse Ox 12/12/19 16:21 47 L 18 108/51 L 100 12/12/19 15:30 56 L 16 121/49 H 97 12/12/19 14:34 58 L 100/79 12/12/19 14:17 60 13 119/64 100 <StevensonPrince - Last Filed: 12/12/19 18:05> Diagnostic/Tx/Re-eval Clinical Impression(s) from Imaging Studies Chest X-Ray 12/12/19 13:50 IMPRESSION: Emphysema without pneumonia or atelectasis. Electronically Signed: Derrick Collier MD at 14:39 EDT Tel , Service support , Laboratory Tests 12/12/19 12/12/19 12/12/19 Range/Units 13:20 13:20 13:20 WBC 8.2 (4.4-11.0) K/mm3 RBC 4.50 L (4.6-6.2) M/mm3 Hgb 12.8 L (13.0-16.5) g/dL Hct 40.6 (40-54) % MCV 90.2 (80-94) fL MCH 28.4 (27.0-32.0) pg MCHC 31.5 L (32-36) g/dL RDW Std Deviation 47.2 H (35.1-43.9) fl RDW Coeff of Kaity 14.3 (11.6-14.6) % Plt Count 204 (150-450) K/mm3 MPV 10.6 (6.2-12.0) fl Immature Gran % (Auto) 0.400 (0.0-0.9) % Neut % (Auto) 63.5 (47-70) % Lymph % (Auto) 26.6 (19-41) % Carroll % (Auto) 8.6 (0-10) % Eos % (Auto) 0.4 (0-5) % Baso % (Auto) 0.5 (0-1) % Absolute Neuts (auto) 5.2 (2.0-7.7) X10^3/uL Absolute Lymphs (auto) 2.17 (0.83-4.51) X10^3/uL Nucleated RBC % 0 (0-5) % D-Dimer Quant (PE/DVT) 0.79 H* (0.27-0.49) FEU/ug/m Sodium 141 (136-145) mmol/L Potassium 4.1 (3.5-5.1) mmol/L Chloride 108 H (98-107) mmol/L Carbon Dioxide 31.0 (21.0-32.0) mmol/L Anion Gap 2 L (5-15) BUN 29 H (7-18) mg/dL Creatinine 0.98 (0.70-1.30) mg/dL Estim Creat Clear Calc 39.60 ml/min Est GFR (MDRD) Af Amer 94 (>60) mL/min Est GFR (MDRD) Non-Af 77 (>60) mL/min BUN/Creatinine Ratio 29.7 H (10-20) RATIO Glucose 110 H (74-106) mg/dL Calcium 10.0 (8.5-10.1) mg/dL Troponin I < 0.015 (<0.045) ng/mL - Rhythm Strip Rhythm Strip: Sinus Rhythm Rate: 67 Ectopy: PVC(s) - EKG Initial EKG Interpretation: Sinus Rhythm - w/ vent bigeminy, No Acute Injury Pattern Prior: Unchanged Treatment: NTG SL Repeat Eval: Pain Free - except for when I take a deep breath, it hurts again a little LAN Risk: Age >/= 65, >/= 3RF, H/O CAD, ASA within 7 days Score: 4 - Medical Decision Making Patient was given a nitroglycerin, he states it really did not make much of a difference in his pain is minimal if there at all. He states it really does not hurt much unless he takes a deep breath, he causes it to hurt. The initial pain which was severe before he took aspirin was nonpleuritic. He has very low risk for DVT or PE and has never had 1. Therefore D-dimer is sent and within normal limits when corrected for age. His EKG shows bigeminy with no acute injury pattern, stable compared with his old EKG. His initial troponin is negative after having about 6 hours worth of discomfort. His discomfort is atypical and not classic angina. I offered admission but he really wants to go home. I think if he has a second troponin that is negative, it would be reasonable for him to be discharged home and follow-up as an outpatient from a cardiac standpoint. I discussed all this with the patient and he is comfortable with that plan. Checked out to the oncoming emergency physician at shift change. <Biju Romero - Last Filed: 12/12/19 16:01> - Medical Decision Making 3-hour troponin is normal and 3-hour delta is normal. Therefore plan is discharged home and follow-up with PCP. <Prince Stevenson - Last Filed: 12/12/19 18:05> ED Disposition <Biju Romero - Last Filed: 12/12/19 16:01> <Prince Stevenson - Last Filed: 12/12/19 18:05> - Plan for ED Patient: Disposition: Home or Assisted Living Diagnosis: Atypical chest pain Instructions: ED Chest Pain Atypical Unkn Cause Referrals: Ancelmo Scott Chi, MD [Primary Care Provider] - 5-7 Days Daniel Martino MD [STAFF PHYSICIAN] - 5-7 Days
[2019-12-12] MEDS: Nitroglycerin SL (ED/IMG/CATH) 0.4 MG TABLET SUBLINGUAL (14:34)
[2019-12-12 15:56] LABS: D-Dimer Quantitative (DVT/PE) 0.79 FEU/ug/m (0.27-0.49)
== END 2019-12-12 18:15 | disposition home or self-care (01) ==
PROVIDERS: Emergency Medicine; Emergency Provider Emergency Medicine; PCP Family Medicine Geriatric Medicine
DX: R07.89 Other chest pain (principal); J44.9 Chronic obstructive pulmonary disease, unspecified; I10 Essential (primary) hypertension; E78.5 Hyperlipidemia, unspecified; Z95.2 Presence of prosthetic heart valve; Z95.1 Presence of aortocoronary bypass graft; Z86.73 Personal history of transient ischemic attack (TIA), and cerebral infarction without residual deficits; Z79.51 Long term (current) use of inhaled steroids; Z79.899 Other long term (current) drug therapy; Z87.891 Personal history of nicotine dependence
CPT/HCPCS: 71045; 80048; 84484; 85025; 85379; 93005; 99281; A4216

== ENCOUNTER → 2020-01-10 10:38 | Outpatient (CLI) | payer MEDICARE, SELFPAY ==
[2019-12-12 13:03] VITALS: BMI 15.6
[2020-01-10 12:34] LABS: Absolute Lymphocyte Count 1.99 X10^3/uL (0.83-4.51); Absolute Neutrophil Count 2.8 X10^3/uL (2.0-7.7); Basophil# 0.03 X10^3/uL; Basophil% 0.5 % (0-1); Eosinophils% 1.8 % (0-5); Hematocrit 38.2 % (40-54); Hemoglobin 11.5 g/dL (13.0-16.5); Lymphocyte # 1.99 X10^3/ul (4.0); Lymphocyte % 36.4 % (19-41); Mean Corp Hgb Conc 30.1 g/dL (32-36); Mean Corpuscular Hgb 27.5 pg (27.0-32.0); Mean Corpuscular Volume 91.4 fL (80-94); Mean Platelet Vol. 10.6 fl (6.2-12.0); Monocyte# 0.58 X10^3/uL; Monocyte% 10.6 % (0-10); NRBC Flagged by Analyzer 0 % (0-5); Neutrophil # 2.76 X10^3/uL (2.7-7.7); Neutrophil % 50.5 % (47-70); Platelet Count 250 K/mm3 (150-450); RBC Distribution Width CV 14.6 % (11.6-14.6); RBC Distribution Width SD 48.8 fl (35.1-43.9); Red Blood Count 4.18 M/mm3 (4.6-6.2); White Blood Count 5.5 K/mm3 (4.4-11.0)
[2020-01-10 12:40] LABS: Vitamin D,25 Hydroxy 35.6 ng/mL
[2020-01-10 13:15] LABS: ALB/GLOB Ratio 0.6 RATIO (0.9-2.4); AST(SGOT) 15 U/L (15-37); Alanine Aminotransfer ALT/SGPT 26 U/L (16-61); Albumin, Serum 2.5 g/dL (3.2-5.0); Alkaline Phosphatase 108 U/L (45-117); Anion Gap 5 (5-15); BUN 27 mg/dL (7-18); BUN/Creat Ratio 27.6 RATIO (10-20); Chloride 109 mmol/L (98-107); Creatinine, Serum 0.98 mg/dL (0.70-1.30); EST Glomerular Filtration Rate 77 mL/min (>60); Est Glom Filt Rate - Afr Amer 94 mL/min (>60); Globulin 4.2 g/dL (2.2-4.2); Glucose 165 mg/dL (74-106); Protein, Total 6.7 g/dL (6.4-8.2); Sodium Level 142 mmol/L (136-145); Thyroid Stim Hormone (TSH) 2.17 uIU/mL (0.358-3.74)
== END ==
PROVIDERS: PCP Family Medicine Geriatric Medicine; Visit Provider Family Medicine Geriatric Medicine
DX: E55.9 Vitamin D deficiency, unspecified (principal); R53.83 Other fatigue
CPT/HCPCS: 36415; 80053; 82306; 84443; 85025

== ENCOUNTER → 2020-03-21 18:13 | Outpatient (CLI) | payer MEDICARE, SELFPAY ==
[2019-12-12 13:03] VITALS: BMI 15.6
== END ==
PROVIDERS: PCP Family Medicine Geriatric Medicine; Referring Provider Family Medicine Geriatric Medicine; Visit Provider Family Medicine Geriatric Medicine
DX: U07.1 COVID-19 (principal)
CPT/HCPCS: 87635; C9803; U0005; U0003

== ENCOUNTER → 2020-04-11 11:22 | Outpatient (CLI) | payer MEDICARE, SELFPAY ==
[2019-12-12 13:03] VITALS: BMI 15.6
[2020-04-11 12:48] LABS: Absolute Neutrophil Count 6.5 X10^3/uL (2.0-7.7); Basophil# 0.02 X10^3/uL; Basophil% 0.2 % (0-1); Eosinophil# 0.02 X10^3/uL; Eosinophils% 0.2 % (0-5); Hematocrit 33.7 % (40-54); Hemoglobin 10.3 g/dL (13.0-16.5); Lymphocyte % 21.4 % (19-41); Mean Corp Hgb Conc 30.6 g/dL (32-36); Mean Corpuscular Hgb 28.1 pg (27.0-32.0); Mean Corpuscular Volume 92.1 fL (80-94); Mean Platelet Vol. 11.1 fl (6.2-12.0); Monocyte# 0.74 X10^3/uL; Monocyte% 7.9 % (0-10); NRBC Flagged by Analyzer 0 % (0-5); Neutrophil # 6.51 X10^3/uL (2.7-7.7); Neutrophil % 69.9 % (47-70); Platelet Count 193 K/mm3 (150-450); RBC Distribution Width CV 15.1 % (11.6-14.6); RBC Distribution Width SD 51.6 fl (35.1-43.9); Red Blood Count 3.66 M/mm3 (4.6-6.2); White Blood Count 9.3 K/mm3 (4.4-11.0)
[2020-04-11 13:01] LABS: Vitamin D,25 Hydroxy 41.4 ng/mL
[2020-04-11 13:16] LABS: ALB/GLOB Ratio 0.7 RATIO (0.9-2.4); AST(SGOT) 15 U/L (15-37); Alanine Aminotransfer ALT/SGPT 19 U/L (16-61); Albumin, Serum 2.8 g/dL (3.2-5.0); Alkaline Phosphatase 102 U/L (45-117); Anion Gap 4 (5-15); BUN 20 mg/dL (7-18); BUN/Creat Ratio 22.6 RATIO (10-20); Calcium,Total 9.9 mg/dL (8.5-10.1); Chloride 108 mmol/L (98-107); Creatinine, Serum 0.88 mg/dL (0.70-1.30); EST Glomerular Filtration Rate 87 mL/min (>60); Est Glom Filt Rate - Afr Amer 105 mL/min (>60); Glucose 92 mg/dL (74-106); Potassium 4.1 mmol/L (3.5-5.1); Protein, Total 6.8 g/dL (6.4-8.2); Sodium Level 140 mmol/L (136-145); Thyroid Stim Hormone (TSH) 2.27 uIU/mL (0.358-3.74)
== END ==
PROVIDERS: PCP Family Medicine Geriatric Medicine; Visit Provider Family Medicine Geriatric Medicine
DX: E55.9 Vitamin D deficiency, unspecified (principal); R53.83 Other fatigue
CPT/HCPCS: 36415; 80053; 82306; 84443; 85025

== ENCOUNTER → 2020-04-22 15:18 | Outpatient (CLI) | payer MEDICARE, SELFPAY ==
[2019-12-12 13:03] VITALS: BMI 15.6
[2020-04-22 17:03] LABS: Absolute Lymphocyte Count 2.72 X10^3/uL (0.83-4.51); Absolute Neutrophil Count 4.8 X10^3/uL (2.0-7.7); Basophil# 0.02 X10^3/uL; Basophil% 0.2 % (0-1); Eosinophil# 0.03 X10^3/uL; Eosinophils% 0.4 % (0-5); Hematocrit 34.4 % (40-54); Hemoglobin 10.9 g/dL (13.0-16.5); Lymphocyte # 2.72 X10^3/ul (4.0); Lymphocyte % 32.4 % (19-41); Mean Corp Hgb Conc 31.7 g/dL (32-36); Mean Corpuscular Hgb 29.3 pg (27.0-32.0); Mean Corpuscular Volume 92.5 fL (80-94); Mean Platelet Vol. 11.3 fl (6.2-12.0); Monocyte# 0.76 X10^3/uL; Monocyte% 9.1 % (0-10); NRBC Flagged by Analyzer 0 % (0-5); Neutrophil # 4.83 X10^3/uL (2.7-7.7); Neutrophil % 57.5 % (47-70); Platelet Count 224 K/mm3 (150-450); RBC Distribution Width CV 15.3 % (11.6-14.6); RBC Distribution Width SD 51.8 fl (35.1-43.9); RET-HE 34.9 pg (30-35); Red Blood Count 3.72 M/mm3 (4.6-6.2); Reticulocyte Count 0.95 % (0.5-1.5); White Blood Count 8.4 K/mm3 (4.4-11.0)
[2020-04-22 17:34] LABS: Vitamin B12 437 pg/mL (211-911)
[2020-04-22 18:30] LABS: Ferritin 191 ng/mL (26-388); Iron 46 ug/dL (65-175); Iron Binding Capacity,Total 206 ug/dL (250-450); PERCENT IRON SATURATION 22.3 % (15.0-55.0)
== END ==
PROVIDERS: PCP Family Medicine Geriatric Medicine; Visit Provider Family Medicine Geriatric Medicine
DX: D64.9 Anemia, unspecified (principal)
CPT/HCPCS: 36415; 82607; 82728; 82746; 83540; 83550; 85025; 85045

== ENCOUNTER → 2020-07-17 11:34 | Outpatient (CLI) | payer MEDICARE, SELFPAY ==
[2019-12-12 13:03] VITALS: BMI 15.6
[2020-07-17 12:46] LABS: Absolute Lymphocyte Count 2.69 X10^3/uL (0.83-4.51); Absolute Neutrophil Count 5.5 X10^3/uL (2.0-7.7); Basophil# 0.03 X10^3/uL; Basophil% 0.3 % (0-1); Eosinophil# 0.11 X10^3/uL; Eosinophils% 1.2 % (0-5); Hematocrit 38.5 % (40-54); Lymphocyte # 2.69 X10^3/ul (0.83-4.51); Lymphocyte % 29.5 % (19-41); Mean Corp Hgb Conc 31.2 g/dL (32-36); Mean Corpuscular Hgb 29.2 pg (27.0-32.0); Mean Corpuscular Volume 93.7 fL (80-94); Mean Platelet Vol. 11.8 fl (6.2-12.0); Monocyte# 0.73 X10^3/uL; NRBC Flagged by Analyzer 0 % (0-5); Neutrophil # 5.52 X10^3/uL (2.7-7.7); Neutrophil % 60.7 % (47-70); Platelet Count 164 K/mm3 (150-450); RBC Distribution Width CV 13.3 % (11.6-14.6); RBC Distribution Width SD 45.9 fl (35.1-43.9); Red Blood Count 4.11 M/mm3 (4.6-6.2); White Blood Count 9.1 K/mm3 (4.4-11.0)
[2020-07-17 13:03] LABS: Vitamin D,25 Hydroxy 41.2 ng/mL
[2020-07-17 13:09] LABS: ALB/GLOB Ratio 0.8 RATIO (0.9-2.4); AST(SGOT) 11 U/L (15-37); Alanine Aminotransfer ALT/SGPT 20 U/L (16-61); Albumin, Serum 2.9 g/dL (3.2-5.0); Alkaline Phosphatase 105 U/L (45-117); Anion Gap 3 (5-15); BUN 15 mg/dL (7-18); Calcium,Total 9.2 mg/dL (8.5-10.1); Chloride 111 mmol/L (98-107); Cholesterol 137 mg/dL (200); EST Glomerular Filtration Rate 75 mL/min (>60); Est Glom Filt Rate - Afr Amer 91 mL/min (>60); Globulin 3.7 g/dL (2.2-4.2); Glucose 119 mg/dL (74-106); High Density Lipoprotein 58 mg/dL; Potassium 4.1 mmol/L (3.5-5.1); Protein, Total 6.6 g/dL (6.4-8.2); Sodium Level 142 mmol/L (136-145); Thyroid Stim Hormone (TSH) 2.86 uIU/mL (0.358-3.74); Triglycerides 54 mg/dL; Very Low Density Lipoprotein 11 mg/dL (5-40)
== END ==
PROVIDERS: PCP Family Medicine Geriatric Medicine; Visit Provider Family Medicine Geriatric Medicine
DX: E55.9 Vitamin D deficiency, unspecified (principal); R53.83 Other fatigue; E78.5 Hyperlipidemia, unspecified
CPT/HCPCS: 36415; 80053; 80061; 82306; 84443; 85025

== ENCOUNTER → 2020-10-07 10:48 | Outpatient (CLI) | payer MEDICARE, SELFPAY ==
[2019-12-12 13:03] VITALS: BMI 15.6
[2020-10-07 12:39] LABS: Absolute Lymphocyte Count 2.69 X10^3/uL (0.83-4.51); Absolute Neutrophil Count 5.3 X10^3/uL (2.0-7.7); Basophil# 0.03 X10^3/uL; Basophil% 0.3 % (0-1); Eosinophil# 0.09 X10^3/uL; Hematocrit 39.5 % (40-54); Hemoglobin 11.9 g/dL (13.0-16.5); Lymphocyte # 2.69 X10^3/ul (0.83-4.51); Lymphocyte % 30.7 % (19-41); Mean Corp Hgb Conc 30.1 g/dL (32-36); Mean Corpuscular Hgb 28.2 pg (27.0-32.0); Mean Corpuscular Volume 93.6 fL (80-94); Mean Platelet Vol. 11.5 fl (6.2-12.0); Monocyte# 0.61 X10^3/uL; NRBC Flagged by Analyzer 0 % (0-5); Neutrophil # 5.32 X10^3/uL (2.7-7.7); Neutrophil % 60.7 % (47-70); Platelet Count 186 K/mm3 (150-450); RBC Distribution Width CV 13.4 % (11.6-14.6); Red Blood Count 4.22 M/mm3 (4.6-6.2); White Blood Count 8.8 K/mm3 (4.4-11.0)
[2020-10-07 12:53] LABS: Vitamin D,25 Hydroxy 39.1 ng/mL
[2020-10-07 13:08] LABS: ALB/GLOB Ratio 0.7 RATIO (0.9-2.4); AST(SGOT) 25 U/L (15-37); Alanine Aminotransfer ALT/SGPT 32 U/L (16-61); Albumin, Serum 2.9 g/dL (3.2-5.0); Alkaline Phosphatase 102 U/L (45-117); Anion Gap 5 (5-15); BUN 20 mg/dL (7-18); BUN/Creat Ratio 21.7 RATIO (10-20); Calcium,Total 9.6 mg/dL (8.5-10.1); Chloride 107 mmol/L (98-107); Cholesterol 166 mg/dL (200); Creatinine, Serum 0.92 mg/dL (0.70-1.30); EST Glomerular Filtration Rate 83 mL/min (>60); Est Glom Filt Rate - Afr Amer 100 mL/min (>60); Globulin 3.9 g/dL (2.2-4.2); Glucose 108 mg/dL (74-106); High Density Lipoprotein 59 mg/dL; Protein, Total 6.8 g/dL (6.4-8.2); Sodium Level 142 mmol/L (136-145); Thyroid Stim Hormone (TSH) 2.77 uIU/mL (0.358-3.74); Triglycerides 88 mg/dL; Very Low Density Lipoprotein 18 mg/dL (5-40)
== END ==
PROVIDERS: PCP Family Medicine Geriatric Medicine; Visit Provider Family Medicine Geriatric Medicine
DX: E55.9 Vitamin D deficiency, unspecified (principal); E78.5 Hyperlipidemia, unspecified; R53.83 Other fatigue
CPT/HCPCS: 36415; 80053; 80061; 82306; 84443; 85025

== ENCOUNTER 2020-11-01 19:41 | Emergency (ER) | payer MEDICARE, SELFPAY ==
[2020-11-01 19:42] VITALS: BP 143/67; PULSE 87; RESP 18; TEMP 36.6; O2SAT 91; BMI 14.8
--- NOTE | 2020-11-01 19:54 | EDS_ITS ---
HPI History of Present Illness Chief Complaint: Fall Informant: patient and spouse/S.O. Occured/Mechanism Mechanism/Context: Yes same level fall Onset/Context/Timing Onset: Hours Current Severity: Mild Maximum Severity: Moderate Worsened by: Movement Relieved by: Nothing Associated Symptoms Associated Symptoms: Negative for Parasthesia, Weakness and Loss of Funtion Narrative Narrative: Patient states he was walking around the car. He hit the arm of the silvia. He fell forward. He states he struck his nose. No loss of conscious. Not amnestic. He is not on anticoagulant. He has no other complaints other than the aches from hitting the ground. [facility] Medical History (Updated 11/01/20 @ 20:[address] 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 RLS (restless legs syndrome) Stage 3 severe COPD by GOLD classification Home Medications albuterol sulfate 2.5 mg INHALATION Q4H PRN PRN 07/24/16 [History Last Taken 07/23/16] aspirin 81 mg PO DAILY 07/24/16 [History Last Taken 07/23/16] ipratropium-albuterol 1 puff INHALATION Q6H PRN 07/24/16 [History Last Taken 07/23/16] vit C 150 mg-vit E 30 unit-lutein 5 sk-zbqsutoz-qrbmg 3 150 mg capsule 1 cap PO QAM 10/19/17 [History Last Taken Unknown] budesonide-formoterol HFA 160 mcg-4.5 mcg/actuation aerosol inhaler 2 puff IN HALATION BID 12/21/18 [History Last Taken Unknown] tamsulosin 0.4 mg capsule 0.8 mg PO DAILY cap 12/21/18 [History Last Taken Unknown] lisinopril 10 mg tablet 10 mg PO QDAY #90 tab 01/18/19 [Rx Last Taken Unknown] tiotropium bromide 2.5 mcg/actuation mist for inhalation 2 puff INHALATION DAILY #4 g 01/20/19 [Rx Last Taken Unknown] clopidogrel 75 mg tablet 75 mg PO DAILY #90 tab 02/22/20 [Rx Last Taken Unknown] metoprolol succinate 25 mg tablet,extended release 24 hr 12.5 mg PO DAILY #45 tab 02/22/20 [Rx Last Taken Unknown] atorvastatin 40 mg tablet 40 mg PO QHS #90 tab 03/14/20 [Rx Last Taken Unknown] Allergy/AdvReac Type Severity Reaction Status Date / Time No Known Allergies Allergy Verified 11/01/20 19:42 Family History Mother CVA (cerebral vascular accident) Brother Myocardial infarction age 50 Surgical History H/O coronary artery bypass surgery (10/24/02) History of aortic valve replacement with tissue graft (10/24/02) History of coronary artery stent placement (1997) Social History Smoking Status: Former smoker Tobacco: How many years used: 50 how long ago did patient quit smokin, 1ppd second hand exposure: Yes ROS ROS ED Constitutional Constitutional ED: Denies frequent falls Eyes Eyes: Denies blurry vision or change in vision ENT ENT ED: Reports other Details: Dates he hit his nose when he fell. He denies epistaxis. Denies dental trauma. ; Denies ear pain, rhinorrhea or sore throat Cardiovascular Cardiovascular: Denies chest pain or palpitations Respiratory/Chest Respiratory/Chest: Denies cough, dyspnea or dyspnea on exertion Gastrointestinal Gastrointestinal: Denies abdominal pain, nausea or vomiting Musculoskeletal Musculoskeletal: Denies back pain, myalgias or neck pain Integumentary Reports Abrasions and other Details: Laceration volar mid third right forearm ; Denies abscess or rash Neurologic Neurologic: Denies paresthesias or weakness Hematologic/Lymphatic Hematologic/Lymphatic: Reports easy bruising; Denies easy bleeding EXAM Physical Exam Const Vital Signs: 11/01/20 19:42 Temperature 97.9 F Temperature Source Temporal Pulse Rate 87 Respiratory Rate 18 Blood Pressure 143/67 H Blood Pressure Mean 92 Pulse Ox 91 Oxygen Delivery Method Room Air Positive well nourished and well developed General Appearance ED: well developed and NAD HEENT normocephalic and atraumatic Eyes PERRL and EOMs intact bilaterally Eyes Narrative: There is no subconjunctival hemorrhage noted General Eye ED: Yes other Neck full ROM and supple General: Negative for tenderness Resp normal respiratory effort and clear to auscultation bilaterally Cardio regular rate, regular rhythm, S1 normal heart sound, S2 normal heart sound and no murmurs Back/Spine no CVA tenderness Cervical Spine: Negative for cervical spine tenderness Thoracic Spine / Upper Back: Negative for thoracic spinal tenderness Lumbar Spine / Lower Back: Negative for lumbar spinal tenderness Extremity full ROM; Negative for normal to inspection Extremity Narrative: Patient has a laceration volar surface of the right forearm. He has abrasions anterior right and left leg. Neuro oriented x3, CN's II-XII intact bilaterally and moves all extremities Sensorium / Orientation: alert Psych mental status grossly normal Skin Lesions: no lesions Rashes: no rashes Trauma: abrasion; Negative for no lacerations or abrasions MDM MDM MDM Narrative Medical decision making narrative: Will update tetanus if needed. Lucernemines for generalized pains due to the fall. Procedures Other Procedures Procedure(s): The forearm laceration was repaired. The wound was anesthetized with Xylocaine for local filtration. The wound was irrigated with 100 cc of normal saline. A total of 6 stitches were placed to close the 6 cm laceration. Nurse applied dressing. Patient was discharged to home. Discharge Plan Triage Chief Complaint: Fall Other Complaint: Laceration ED Provider: Prince Stevenson Dx/Rx/DC Orders Clinical Impression: Laceration of forearm, right, Abrasion of left leg, Abrasion of right leg Instructions: ED Abrasion, ED Laceration: All Closures Prescriptions: No Action vit C 150 mg-vit E 30 unit-lutein 5 dx-abmemnjk-nsjvl 3 150 mg capsule [id number] qh-iwxh-nn-mg capsule 1 cap PO QAM RF: 0 lisinopril 10 mg tablet 10 mg PO QDAY Qty: 90 RF: 3 tamsulosin 0.4 mg capsule 0.8 mg PO DAILY RF: 0 Symbicort 160-4.5 mcg/actuation HFA aerosol inhaler 2 puff INHALATION BID RF: 0 albuterol sulfate 2.5 MG/3 ML solution for nebulization 2.5 mg INHALATION Q4H PRN PRN (Reason: BREATHING) RF: 0 aspirin 81 MG tablet,chewable 81 mg PO DAILY RF: 0 ipratropium-albuterol 1 PUFF inhaler 1 puff INHALATION Q6H PRN (Reason: wheezing sob) RF: 0 Spiriva Respimat 2.5 mcg/actuation mist 2 puff INHALATION DAILY Qty: 4 RF: 11 clopidogrel 75 mg tablet 75 mg PO DAILY Qty: 90 RF: 3 metoprolol succinate [Toprol XL] 25 mg tablet extended release 24 hr 12.5 mg PO DAILY Qty: 45 RF: 3 atorvastatin 40 mg tablet 40 mg PO QHS Qty: 90 RF: 3 Primary Care Provider: Ancelmo Scott Chi Referrals: Ancelmo Scott Chi, MD [Primary Care Provider] - 10-14 Days suture removal Activity Restrictions/Additional Instructions: Apply bacitracin ointment 3 times a day Keep wound clean and dry Disposition Disposition: Home, Self Care
[2020-11-01] MEDS: HYDROcodone Bitartrate/Apap 5/325 Tablet PO (20:05)
== END 2020-11-01 20:26 | disposition home or self-care (01) ==
LOC: ED 20:18
PROVIDERS: Emergency Provider Emergency Medicine; PCP Family Medicine Geriatric Medicine
DX: S51.811A Laceration without foreign body of right forearm, initial encounter (principal); S80.812A Abrasion, left lower leg, initial encounter; S80.811A Abrasion, right lower leg, initial encounter; I25.10 Atherosclerotic heart disease of native coronary artery without angina pectoris; J44.9 Chronic obstructive pulmonary disease, unspecified; I10 Essential (primary) hypertension; E78.5 Hyperlipidemia, unspecified; Z86.73 Personal history of transient ischemic attack (TIA), and cerebral infarction without residual deficits; Z79.51 Long term (current) use of inhaled steroids; Z79.899 Other long term (current) drug therapy; Z87.891 Personal history of nicotine dependence; W01.0XXA Fall on same level from slipping, tripping and stumbling without subsequent striking against object, initial encounter; Y93.01 Activity, walking, marching and hiking; Y92.008 Other place in unspecified non-institutional (private) residence as the place of occurrence of the external cause; Y99.8 Other external cause status
CPT/HCPCS: 12002; 99284

== ENCOUNTER → 2021-01-14 10:39 | Outpatient (CLI) | payer MEDICARE, SELFPAY ==
[2021-01-14 12:36] LABS: Absolute Lymphocyte Count 1.82 X10^3/uL (0.83-4.51); Absolute Neutrophil Count 4.1 X10^3/uL (2.0-7.7); Basophil# 0.03 X10^3/uL; Basophil% 0.5 % (0-1); Eosinophil# 0.05 X10^3/uL; Eosinophils% 0.8 % (0-5); Hematocrit 36.9 % (40-54); Hemoglobin 11.6 g/dL (13.0-16.5); Lymphocyte # 1.82 X10^3/ul (0.83-4.51); Lymphocyte % 27.9 % (19-41); Mean Corp Hgb Conc 31.4 g/dL (32-36); Mean Corpuscular Hgb 28.6 pg (27.0-32.0); Mean Corpuscular Volume 91.1 fL (80-94); Monocyte# 0.51 X10^3/uL; Monocyte% 7.8 % (0-10); NRBC Flagged by Analyzer 0 % (0-5); Neutrophil # 4.09 X10^3/uL (2.7-7.7); Neutrophil % 62.5 % (47-70); Platelet Count 273 K/mm3 (150-450); RBC Distribution Width CV 13.3 % (11.6-14.6); Red Blood Count 4.05 M/mm3 (4.6-6.2); White Blood Count 6.5 K/mm3 (4.4-11.0)
[2021-01-14 12:55] LABS: ALB/GLOB Ratio 0.6 RATIO (0.9-2.4); AST(SGOT) 16 U/L (15-37); Alanine Aminotransfer ALT/SGPT 25 U/L (16-61); Albumin, Serum 2.5 g/dL (3.2-5.0); Alkaline Phosphatase 99 U/L (45-117); Anion Gap 7 (5-15); BUN 16 mg/dL (7-18); Chloride 105 mmol/L (98-107); Cholesterol 147 mg/dL (200); EST Glomerular Filtration Rate 75 mL/min (>60); Est Glom Filt Rate - Afr Amer 91 mL/min (>60); Globulin 4.2 g/dL (2.2-4.2); Glucose 98 mg/dL (74-106); High Density Lipoprotein 54 mg/dL; Protein, Total 6.7 g/dL (6.4-8.2); Sodium Level 141 mmol/L (136-145); Thyroid Stim Hormone (TSH) 2.91 uIU/mL (0.358-3.74); Triglycerides 52 mg/dL; Very Low Density Lipoprotein 10 mg/dL (5-40)
== END ==
PROVIDERS: Physician Assistant Surgical; PCP Family Medicine Geriatric Medicine; Visit Provider Family Medicine Geriatric Medicine
DX: E55.9 Vitamin D deficiency, unspecified (principal); E78.5 Hyperlipidemia, unspecified; R53.83 Other fatigue; Z11.52 Encounter for screening for COVID-19
CPT/HCPCS: 36415; 80053; 80061; 82306; 84443; 85025; 87635; U0005; U0003

== ENCOUNTER → 2021-01-28 | Outpatient (CLI) | payer MEDICARE, SELFPAY | END | disposition home or self-care (01) | PROVIDERS: PCP Family Medicine Geriatric Medicine; Visit Provider Family Medicine Geriatric Medicine | DX: N39.0 Urinary tract infection, site not specified (principal) | CPT/HCPCS: 87086 ==

== ENCOUNTER → 2021-02-17 16:46 | Outpatient (CLI) | payer MEDICARE, SELFPAY ==
--- NOTE | 2021-02-17 09:48 | CYSPIN_PTH ---
PATIENT: ELODIA PARK LOC: [place] U#:[id number] AGE/SX: 89/M ROOM: RE02/17/[address]: Dr. Shaun Brooks MD : [id number] BED: DIS: SPEC #: [id number] RECD: 02/18/21 08:24 STATUS: VALENCIA TAL #: [id number] ENZO: 02/17/21 09:[address]: Shaun Brooks DEPT: CYTOLOGY RECD BY: Naomi Vazquez ENTERED: 02/18/21 08:25 SP TYPE: CYSPIN FL OTHR DR: Dr. Ancelmo Scott MD Tissues: Urine Procedures: Pap Stain (control) Special Stain Group II Cytospin Fluid HEADER OPERATION: Not noted PRE-OP DIAGNOSIS: Gross hematuria TISSUE SUBMITTED: Urine for cytology DIAGNOSIS CYTOLOGY Urine for cytology (cytospin): Positive for malignant cells consistent with urothelial carcinoma. AM:cristina 02/18/2021 CYTOLOGY STUDY Slides are reviewed. CYTOLOGY GROSS Received is 20 ml of brown cloudy fluid labeled with the patient's name and and designated per the requisition as urine. Submitted for cytology preparation. / cristina 02/18/2021 TC:0 CPT: 70198
[2021-02-17 16:52] LABS: Cytology, Body Fluid / CSF SEE PATHOLOGY REPORT
== END ==
PROVIDERS: PCP Family Medicine Geriatric Medicine; Visit Provider Urology
DX: R31.0 Gross hematuria (principal)
CPT/HCPCS: 88108; 88313

== ENCOUNTER → 2021-02-27 14:24 | Outpatient (CLI) | payer MEDICARE, SELFPAY ==
--- NOTE | 2021-02-27 14:26 | CT_ITS ---
STUDY: CT Abdomen And Pelvis WO/W Contrast Injection 02/27/2021 3:24 PM REASON FOR EXAM: Male, 85 years old. Abdominal pain GROSS HEMATURIA Individualized dose optimization techniques were used for this CT. COMPARISON: Jul 22 2018 12:54pm TECHNIQUE: CT Abdomen And Pelvis WO/W Contrast Injection without and with IV 75mL Isovue-370 FINDINGS: There are atherosclerotic calcifications of visualized coronary arteries. There are scattered blebs and bullae. This can be seen in pulmonary emphysema. Multiple median sternotomy wires are noted consistent for cardiac surgery. There is a left pleural effusions. Normal liver. Normal gallbladder and extrahepatic biliary system. There are multiple benign calcified granulomata of the spleen. Normal pancreas. Normal bilateral adrenal glands. Non obstructive 4mm right renal parenchymal stones. Non obstructive 2 to 5mm left renal parenchymal stones. Moderate hydronephrosis and hydroureter caused by 9mm distal left ureteral stone. Normal visualized stomach. Normal small intestine. There are multiple colonic diverticula consistent with diverticulosis. There is non-visualization of the appendix. There are calcifications of the abdominal aorta. This is consistent for atherosclerotic disease. There is no abdominal aortic aneurysm. Normal inferior vena cava. Subcentimeter mesenteric lymph nodes. Normal urinary bladder. There are prostatic calcifications. Normal abdominal wall. There are diffuse degenerative changes of the visualized lumbar spine. There is bilateral neural foraminal stenosis at L4-5 and L5-S1.There is enlargement of the prostate gland. IMPRESSION: (NOT LISTED IN ORDER OF SIGNIFICANCE) There is a left pleural effusions. Moderate hydronephrosis caused by 9mm distal left ureteral stone. Other findings as above. Electronically Signed: Artemio Jensen MD at 15:28 EST , Service support , CT/CT Abd/Pelvis W/WO Contrast
[2021-02-27 14:46] LABS: CREATININE FINGERSTICK < 0.6 mg/dL (0.70-1.30); EGFR FINGERSTICK > 60.0000 mL/min (>60)
== END ==
PROVIDERS: PCP Family Medicine Geriatric Medicine; Referring Provider Urology; Visit Provider Urology
DX: R31.0 Gross hematuria (principal)
CPT/HCPCS: 74178; Q9967

== ENCOUNTER 2021-03-04 09:02 | Outpatient (CLI) | payer MEDICARE, SELFPAY ==
--- NOTE | 2021-03-04 09:05 | EKG12_ITS ---
Test Reason : PRE OP Blood Pressure : / mmHG Vent. Rate : 077 BPM Atrial Rate : 043 BPM P-R Int : 186 ms QRS Dur : 098 ms QT Int : 374 ms P-R-T Axes : 083 090 029 degrees QTc Int : 423 ms SINUS RHYTHM WITH OCCASIONAL PVCS, SEPTAL IFARCT, AGE UNDETERMINED, CANNONT BE EXCLUDED NONSPECIFIC ST/T WAV ABNORMALITY Abnormal ECG Confirmed by IRAIDA GONZALES, JAE ([id number]), manager editorial MONICA RODGERS ([id number]) on 03/05/2021 9:33:10 AM Referred By: Shaun Brooks Confirmed By:JAE KHOURY MD
[2021-03-04 10:30] LABS: Hematocrit 39.4 % (40-54); Hemoglobin 12.3 g/dL (13.0-16.5); Mean Corp Hgb Conc 31.2 g/dL (32-36); Mean Corpuscular Hgb 28.5 pg (27.0-32.0); Mean Corpuscular Volume 91.2 fL (80-94); Mean Platelet Vol. 10.7 fl (6.2-12.0); Platelet Count 300 K/mm3 (150-450); RBC Distribution Width CV 13.6 % (11.6-14.6); Red Blood Count 4.32 M/mm3 (4.6-6.2); White Blood Count 6.2 K/mm3 (4.4-11.0)
[2021-03-04 10:37] LABS: Anion Gap 11 (5-15); BUN 17 mg/dL (7-18); Calcium,Total 9.9 mg/dL (8.5-10.1); Chloride 104 mmol/L (98-107); Creatinine, Serum 1.06 mg/dL (0.70-1.30); EST Glomerular Filtration Rate 70 mL/min (>60); Est Glom Filt Rate - Afr Amer 85 mL/min (>60); Glucose 108 mg/dL (74-106); Potassium 3.2 mmol/L (3.5-5.1); Sodium Level 143 mmol/L (136-145)
== END 2021-03-04 23:59 | disposition short-term general hospital (02) ==
LOC: PSN 09:04
PROVIDERS: PCP Family Medicine Geriatric Medicine; Referring Provider Urology; Visit Provider Urology
DX: Z01.810 Encounter for preprocedural cardiovascular examination (principal)
CPT/HCPCS: 36415; 80048; 85027; 93005

== ENCOUNTER 2021-03-14 12:24 | Day surgery (SDC) | payer MEDICARE, SELFPAY ==
[2021-03-14] VITALS (7 sets, daily range): BP systolic 126–154; BP diastolic 65–95; PULSE 39–69; RESP 16–18; TEMP 36.1–36.6; O2SAT 96–100; BMI 13.1
--- NOTE | 2021-03-14 13:23 | EKG12_ITS ---
Test Reason : PRE OP Blood Pressure : / mmHG Vent. Rate : 076 BPM Atrial Rate : 076 BPM P-R Int : 186 ms QRS Dur : 098 ms QT Int : 404 ms P-R-T Axes : 081 080 -45 degrees QTc Int : 454 ms Sinus rhythm with frequent Premature ventricular complexes in a pattern of bigeminy Low voltage QRS ST & T wave abnormality, consider inferior ischemia Abnormal ECG Confirmed by VASILIY GONZALES, MARIO ([id number]), multimedia editor MARQUEZ RITTER ([id number]) on 03/18/2021 9:36:08 AM Referred By: Shaun Brooks Confirmed By:MARIO AMANDA MD
[2021-03-14] MEDS: Lactated Ringers 1,000 ML 15 ML IV (13:35)
--- NOTE | 2021-03-14 15:27 | PCM.HP.STD ---
HPI - General HPI Narrative ELODIA PARK, is a 85 M who presents gross hematuria on work-up was found to have a large stone in the distal left ureter causing obstruction today working to bring him to surgery he has a very large prostate could be very difficult to get the stone given his anatomy possible may have to have a staged approach. [facility] Medical History (Updated 03/14/21 @ 15:[address] 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 COPD (chronic obstructive pulmonary disease) Dyspnea Essential (primary) hypertension Hyperlipidemia Multiple premature ventricular complexes Non-rheumatic aortic stenosis Old inferior wall myocardial infarction On home oxygen therapy Pulmonary cachexia due to COPD RLS (restless legs syndrome) Shortness of breath on exertion Stage 3 severe COPD by GOLD classification Stroke/cerebrovascular accident Home Medications aspirin 81 mg PO DAILY 07/24/16 [History Last Taken 03/11/21] ipratropium-albuterol 1 puff INHALATION Q6H PRN 07/24/16 [History Last Taken 07/23/16] vit C 150 mg-vit E 30 unit-lutein 5 lc-vrrrojow-kkyis 3 150 mg capsule 1 cap PO QAM 10/19/17 [History Last Taken Unknown] budesonide-formoterol HFA 160 mcg-4.5 mcg/actuation aerosol inhaler 2 puff INHALATION BID 12/21/18 [History Last Taken Unknown] tamsulosin 0.4 mg capsule 0.4 mg PO DAILY cap 12/21/18 [History Last Taken Unknown] lisinopril 10 mg tablet 10 mg PO QDAY #90 tab 01/18/19 [Rx Last Taken Unknown] tiotropium bromide 2.5 mcg/actuation mist for inhalation 2 puff INHALATION DAILY #4 g 01/20/19 [Rx Last Taken Unknown] clopidogrel 75 mg tablet 75 mg PO DAILY #90 tab 02/22/20 [Rx Last Taken 03/05/21] metoprolol succinate 25 mg tablet,extended release 24 hr 12.5 mg PO DAILY #45 tab 02/22/20 [Rx Last Taken Unknown] albuterol sulfate 2.5 mg INHALATION Q4H PRN PRN #180 ml 02/27/21 [Rx Last Taken Unknown] atorvastatin [Lipitor] 40 mg PO QHS 03/12/21 [History Last Taken Unknown] ciprofloxacin HCl [Cipro] 500 mg PO BID #10 tab 03/14/21 [Rx Last Taken Unknown] oxycodone-acetaminophen 1 tab PO Q4H PRN 7 Days #14 tab 03/14/21 [Rx Last Taken Unknown] Allergy/AdvReac Type Severity Reaction Status Date / Time No Known Allergies Allergy Verified 03/14/21 13:05 Family History Mother CVA (cerebral vascular accident) Brother Myocardial infarction age 50 Surgical History H/O coronary artery bypass surgery (10/24/02) History of aortic valve replacement with tissue graft (10/24/02) History of coronary artery stent placement (1997) Social History Smoking Status: Former smoker Tobacco: How many years used: 50 how long ago did patient quit smokin, 1ppd second hand exposure: Yes Vital Signs Vital Signs Vital Signs: 03/14/21 13:07 Temperature 97.8 F Temperature Source Temporal Pulse Rate 39 L Respiratory Rate 18 Respiratory Pattern Normal Blood Pressure 126/65 H Blood Pressure Mean 85 Blood Pressure Source Monitor Blood Pressure Position Semi-Fowlers Blood Pressure Location Left Arm Pulse Ox 96 Oxygen Delivery Method Room Air Weight Weight: 42.7 kg Body Mass Index (BMI) 13.1
--- NOTE | 2021-03-14 15:27 | PCM.DC ---
Discharge Instructions Diet Discharge Diet: No restrictions Activity Discharge Activity: Return to Normal Activity and May Not Drive (while taking narcotic pain medications.) Dressing / Incision Call your doctor if your incision/area has: Continuous Slow Oozing, Increased Pain/ Swelling, Increased Redness and Foul Smelling Discharge Call your doctor if you observe: Fever of 101 or Higher and Uncontrolled pain Follow Up Care Please Follow Up With: Shaun Brooks MD When: Call [phone] for an appointment Test Results: Test results from this visit will be discussed in further detail at your follow-up appointment, if applicable. Discharge Plan Admission Primary Reason for Your Visit: kidney stone Attending Provider: Shaun Brooks Primary Care Provider: Ancelmo Scott Chi Discharge Orders/Prescriptions Prescriptions: New ciprofloxacin HCl [Cipro] 500 mg tablet 500 mg PO BID Qty: 10 RF: 0 oxycodone-acetaminophen 5-325 mg tablet 1 tab PO Q4H PRN (Reason: pain) 7 Days Qty: 14 RF: 0 Continued vit C 150 mg-vit E 30 unit-lutein 5 vm-adswgoya-lckak 3 150 mg capsule [id number] tt-uftg-sw-mg capsule 1 cap PO QAM RF: 0 lisinopril 10 mg tablet 10 mg PO QDAY Qty: 90 RF: 3 tamsulosin 0.4 mg capsule 0.4 mg PO DAILY RF: 0 Symbicort 160-4.5 mcg/actuation HFA aerosol inhaler 2 puff INHALATION BID RF: 0 aspirin 81 MG tablet,chewable 81 mg PO DAILY RF: 0 ipratropium-albuterol 1 PUFF inhaler 1 puff INHALATION Q6H PRN (Reason: wheezing sob) RF: 0 atorvastatin [Lipitor] 40 mg tablet 40 mg PO QHS RF: 0 Spiriva Respimat 2.5 mcg/actuation mist 2 puff INHALATION DAILY Qty: 4 RF: 11 clopidogrel 75 mg tablet 75 mg PO DAILY Qty: 90 RF: 3 metoprolol succinate [Toprol XL] 25 mg tablet extended release 24 hr 12.5 mg PO DAILY Qty: 45 RF: 3 albuterol sulfate 2.5 mg /3 mL (0.083 %) solution for nebulization 2.5 mg INHALATION Q4H PRN PRN (Reason: BREATHING) Qty: 180 RF: 6 Referrals / Follow Up: Shaun Brooks MD [STAFF PHYSICIAN] - Ancelmo Scott Chi, MD [Primary Care Provider] - Disposition Disposition (needs filled in before D/C Order can be placed): Home, Self Care
--- NOTE | 2021-03-14 16:26 | OP.PCM_ITS ---
Report of Operation Date of Procedure: 03/14/21 Pre-Operative Diagnosis: Large distal left ureteral calculi, left ureteral stri cture Post-Operative Diagnosis: Same Surgery/Procedure Performed:: Cystoscopy, balloon dilation of the left ureteral stricture with a 12 Macedonian balloon dilator, left retrograde pyelogram interpretation fluoroscopic images, left ureteroscopy laser lithotripsy of stone. Basket extraction of stone fragments left stent placement Description of Surgical Findings:: This is a patient who presents to the hospital for treatment for an obstructing distal ureter calculi. I discussed with the patient how the surgery would be performed and we reviewed the risks and benefits of the surgery. The risk and benefits include the risk of failure to remove the stone completely and that the patient may need multiple pro cedures. We discussed the risk of an infection, the risk of bleeding. We discussed the very rare risk of serious complicated injury to the ureter. The patient understands that if the stone is not able to be removed safely that we may abort the procedure and place a stent. After full discussion and all questions address with the patient the consent form was signed the side was marked appropriately and the patient was taken back to the operating room for the procedure. The patient was taken back to the operating room. After induction of anesthesia by the anesthesiology team the patient was placed in dorsolithotomy position. The genitals were prepped and draped in usual sterile fashion. I went into the bladder with a 21 Macedonian rigid cystourethroscope through the urethra. Upon entering the bladder I inspected the trigone the left and right ureteral orifice and the bladder itself. Prostate was very enlarged with bilateral hypertrophy small median lobe the bladder had a lot of trabeculation and it and looked atonic and we could stretched out. I then cannulated the left ureteral orifice and advanced a 0.038 Glidewire up into the kidney. Then over the Glidewire I advanced a 5 Fr Ureteral catheter and performed a retrograde pyelogram with about 10cc of contrast, to delineate the anatomy and identify the stone location. Identified the stone in the distal ureter there was a stricture beyond the stone that was preventing it from passing into the bladder right at the UVJ junction so then I used the a ureteral balloon dilator was advanced over the wire and the distal ureter was balloon dilated with a 12 Fr x 5cm balloon dilator. After 3 minutes of dilating the ureter the balloon was backloaded off the 0.038 glidewire then the safety wire was left in place. I then placed a second 0.038 Guidewire as a working wire and over the working 0.038 guidewire I went in with the lucero rigide 7.5fr ureteroscope. I was able to go inside with the 7.5Fr lucero rigid utereroscope and I pulled out the working guidewire and then through the 7.5 fr simirigid ureteroscope I engage the stone in the distal ureter with laser lithotripsy using a 270miron laser fiber with energy setting o f 6 Hertz and 0.6 J until the stone was lasered into tiny little pieces. I then used a basket through the ureteroscope and extracted many the fragments from the distal ureter. A retrograde pyelogram was performed with 10cc of contrast and no extravasation of contrast or perforation was identified in the ureter there was some mild irritation of the ureter where the stone was located. I then back ed out of the ureter left the wire in place and then over the 0.038 guidewire I placed a double coiled pigtail ureteral stent. The ureteral stent was advanced over the 0.038 guidewire under direct fluoroscopic guidance and direct cystoscopic visual guidance, once the stent was in good position I pulled the wire and the stent coiled in the kidney and bladder in good position. I then drained the patient's bladder and the cystoscope was removed and the patient was taken back to the recovery room in good position. The patient was given discharge instructions to call the office for instructions on when to come to the office to have the stent removed. He had a lot of inflammation and dense stricture of the distal ureter we will leave the stent in about 4 weeks to let this heal up. So I will tell the family to call the office for appointment in 1 month for stent removal. Surgeon: iona
== END 2021-03-14 23:59 | disposition home or self-care (01) ==
LOC: SDC 12:33 → AC 12:33
PROVIDERS: PCP Family Medicine Geriatric Medicine; Referring Provider Urology; Visit Provider Urology
PROC: (CPT 52356; principal; 2021-03-14 14:15)
DX: N20.1 Calculus of ureter (principal); J43.9 Emphysema, unspecified; N40.1 Benign prostatic hyperplasia with lower urinary tract symptoms; N13.8 Other obstructive and reflux uropathy; R31.0 Gross hematuria; N13.5 Crossing vessel and stricture of ureter without hydronephrosis; I25.10 Atherosclerotic heart disease of native coronary artery without angina pectoris; E78.5 Hyperlipidemia, unspecified; I35.0 Nonrheumatic aortic (valve) stenosis; I10 Essential (primary) hypertension; I25.2 Old myocardial infarction; Z95.1 Presence of aortocoronary bypass graft; Z95.2 Presence of prosthetic heart valve; Z99.81 Dependence on supplemental oxygen; Z79.02 Long term (current) use of antithrombotics/antiplatelets; Z79.82 Long term (current) use of aspirin; Z79.899 Other long term (current) drug therapy; Z87.891 Personal history of nicotine dependence; Z86.73 Personal history of transient ischemic attack (TIA), and cerebral infarction without residual deficits
CPT/HCPCS: 52344; 52356; 00910; 76000; 93005; J7120; C1769; C2617

== ENCOUNTER 2021-06-02 09:54 | Outpatient (CLI) | payer MEDICARE, SELFPAY ==
--- NOTE | 2021-06-02 10:00 | RAD_ITS ---
STUDY: X-RAY - ESOPHAGUS (BARIUM SWALLOW) WITH FLUOROSCOPY REASON FOR EXAM: Male, 85 years old. DYSPHAGIA TECHNIQUE: 15 view(s) of the esophagus were obtained following swallowing of barium. FLUOROSCOPY TIME (if supplied): (20 seconds) minutes/seconds. Limited study. The patient refused to ingest a 12 mm tablet of barium. COMPARISON: None. FINDINGS: There is no demonstrated esophageal foreign body. There is no demonstrated stricture or mucosal abnormality. Normal gastroesophageal junction, without a demonstrated hiatal hernia. There is atherosclerotic calcification of the aortic arch with tortuosity of the descending aorta. Normal visualized pulmonary parenchyma. There are diffuse degenerative changes of the visualized thoracic spine. RAD/Esophagus Single Contrast IMPRESSION: Normal plain film x-ray examination (barium swallow) of the esophagus. Electronically Signed: Amauri Elizalde MD at 14:56 EDT ,
== END 2021-06-02 23:59 | disposition home or self-care (01) ==
LOC: RAD 09:58
PROVIDERS: PCP Family Medicine Geriatric Medicine; Referring Provider Otolaryngology Otolaryngology/Facial Plastic Surgery; Visit Provider Otolaryngology Otolaryngology/Facial Plastic Surgery
DX: R13.10 Dysphagia, unspecified (principal)
CPT/HCPCS: 74220

== ENCOUNTER 2021-06-22 20:49 | Inpatient (IN) | payer MEDICARE, SELFPAY ==
[2021-06-22 20:50] VITALS: BP 156/83; PULSE 101; RESP 24; TEMP 38.8; O2SAT 95; BMI 14.3
[2021-06-22 20:53] VITALS: BP 156/83; PULSE 92; RESP 27; TEMP 38.8; O2SAT 98
--- NOTE | 2021-06-22 21:17 | RAD_ITS ---
INDICATION: cough, fever EXAMINATION/TECHNIQUE: X-RAY - XR Chest 1 View COMPARISON: 12/12/2019 chest x-ray FINDINGS: LINES/DEVICES: None. LUNGS: Increased lung volumes bilaterally. Extensive hyperlucencies seen throughout the lungs with altered interstitial markings consistent with advanced emphysematous disease. Blunting right costophrenic angle suggesting pleural effusion is unchanged. New opacity left lung base concerning for airspace disease. MEDIASTINUM AND CARDIOVASCULAR STRUCTURES: Prior sternotomy. Atherosclerotic intimal calcifications. Normal size heart shadow with no evidence of mediastinal or hilar lymphadenopathy. BONES AND SOFT TISSUES: Chronic degenerative changes thoracic spine. RAD/Chest 1 View (Portable) IMPRESSION: 1. New left lower lobe airspace disease. This is likely infectious. Six-week follow-up chest x-ray following treatment to ensure resolution is recommended. 2. Advanced emphysematous changes and blunting right costophrenic angle, likely representing small effusion, unchanged. Electronically Signed: James Harrison DO at 22:09 EDT ,
--- NOTE | 2021-06-22 21:17 | EKG12_ITS ---
Test Reason : AMS Blood Pressure : / mmHG Vent. Rate : 080 BPM Atrial Rate : 080 BPM P-R Int : 188 ms QRS Dur : 098 ms QT Int : 400 ms P-R-T Axes : 083 208 032 degrees QTc Int : 461 ms Sinus rhythm with occasional Premature ventricular complexes Low voltage QRS (Limb Leads) Inferior infarct , age undetermined Abnormal ECG Confirmed by IRAIDA GONZALES, JAE ([id number]), publication editor MARQUEZ RITTER ([id number]) on 06/24/2021 11:15:47 AM Referred By: Confirmed By:JAE KHOURY MD
--- NOTE | 2021-06-22 21:19 | CT_ITS ---
STUDY: CT BRAIN WITHOUT CONTRAST REASON FOR EXAM: Male, 85 years old. confusion RADIATION DOSAGE (If Supplied By Facility): CTDIvol = ( [47.06] ) mGy, DLP = ( 890.33 ) mGycm TECHNIQUE: Transaxial CT imaging of the brain was performed without administration of intravenous contrast material. Individualized dose optimization techniques were used for this CT. COMPARISON: No relevant priors. FINDINGS: Normal soft tissue structures. Normal calvarium. Findings of mild age-related atrophy are noted. Mild patchy chronic small vessel ischemic changes noted within the deep white matter tracts. Old lacunar infarctions noted within the left thalamus and left cerebellum. No intra-axial mass or parenchymal hemorrhage. Extensive vascular calcification is present. The middle cerebral arteries are not hyperdense. There are no findings of an acute ischemic infarction. Moderate mucosal thickening noted within the right sphenoid sinus which shows a thickened and sclerotic wall indicating chronic sinus disease. No paranasal sinus air-fluid levels. Visualized mastoid air cells are clear. Previous optic surgery. Globes are symmetric. CT/Brain/Head without Contrast IMPRESSION: Atrophy with chronic small vessel ischemic changes. Old lacunar infarctions. Chronic right sphenoid sinusitis. No acute intracranial abnormality. Electronically Signed: Tommie Askew MD at 23:16 EDT ,
--- NOTE | 2021-06-22 21:19 | EDS_ITS ---
HPI History of Present Illness Chief Complaint: General Illness Informant: patient and family Onset/Context/Timing Onset: Today Context: Gradual Onset Timing: Continuous Quality: confused, weak Location: generally Current Severity: Moderate Maximum Severity: Moderate Worsened by: nothing Relieved by: nothing Narrative Narrative: Family noticed patient was having cold chills today, getting confused, and feeling weak all over he stumbled a little and almost fell when he was walking back from the bathroom at one point. There went very warm house since the weather was hot outside, and there is no air conditioning, and he was having cold chills while everybody else was hot. He was never lethargic, sweating, etc. He denies any focal symptoms or pain anywhere. He does admit to having some chills. He has a chronic cough with COPD, he states that is all been stable and unchanged recently. Denies any GI symptoms or trouble urinating remembers urinating today and did not hurt. He states yesterday, he remembers being in bed and seen his sheets/covers dancing all over the place. Then he saw his oxygen tank doing the same thing. He is on 3 L all the time for his COPD. 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 COPD (chronic obstructive pulmonary disease) Dysphagia Dyspnea Essential (primary) hypertension Hyperlipidemia Multiple premature ventricular complexes Non-rheumatic aortic stenosis Old inferior wall myocardial infarction On home oxygen therapy Pulmonary cachexia due to COPD RLS (restless legs syndrome) Shortness of breath on exertion Squamous cell skin cancer Stage 3 severe COPD by GOLD classification Stroke/cerebrovascular accident Home Medications aspirin 81 mg PO DAILY 07/24/16 [History Last Taken 03/11/21] ipratropium-albuterol 1 puff INHALATION Q6H PRN 07/24/16 [History Last Taken 07/23/16] vit C 150 mg-vit E 30 unit-lutein 5 qd-wrabqpsp-mkoct 3 150 mg capsule 1 cap PO QAM 10/19/17 [History Last Taken Unknown] budesonide-formoterol HFA 160 mcg-4.5 mcg/actuation aerosol inhaler 2 puff INHALATION BID 12/21/18 [History Last Taken Unknown] tamsulosin 0.4 mg capsule 0.4 mg PO DAILY cap 12/21/18 [History Last Taken Unknown] lisinopril 10 mg tablet 10 mg PO QDAY #90 tab 01/18/19 [Rx Last Taken Unknown] tiotropium bromide 2.5 mcg/actuation mist for inhalation 2 puff INHALATION DAILY #4 g 01/20/19 [Rx Last Taken Unknown] clopidogrel 75 mg tablet 75 mg PO DAILY #90 tab 02/22/20 [Rx Last Taken 03/05/21] metoprolol succinate 25 mg tablet,extended release 24 hr 12.5 mg PO DAILY #45 tab 02/22/20 [Rx Last Taken Unknown] albuterol sulfate 2.5 mg INHALATION Q4H PRN PRN #180 ml 02/27/21 [Rx Last Taken Unknown] atorvastatin [Lipitor] 40 mg PO QHS 03/12/21 [History Last Taken Unknown] ciprofloxacin HCl [Cipro] 500 mg PO BID #10 tab 03/14/21 [Rx Last Taken Unknown] oxycodone-acetaminophen 1 tab PO Q4H PRN 7 Days #14 tab 03/14/21 [Rx Last Taken Unknown] linaclotide 72 mcg capsule 72 mcg PO DAILY 06/16/21 [History Last Taken Unknown] Allergy/AdvReac Type Severity Reaction Status Date / Time No Known Allergies Allergy Verified 06/16/21 14:16 Family History Mother CVA (cerebral vascular accident) Brother Myocardial infarction age 50 Surgical History H/O coronary artery bypass surgery (10/24/02) History of aortic valve replacement with tissue graft (10/24/02) History of coronary artery stent placement (1997) Social History Smoking Status: Former smoker Tobacco: How many years used: 50 how long ago did patient quit smokin, 1ppd second hand exposure: Yes ROS ROS ED Constitutional Constitutional ED: Reports chills, fever(s) and malaise; Denies headache(s) Eyes Eyes: Denies change in vision or diplopia ENT ENT ED: Denies rhinorrhea or sore throat Cardiovascular Cardiovascular: Denies chest pain or palpitations Respiratory/Chest Respiratory/Chest: Reports as per HPI, cough and dyspnea on exertion; Denies chest tightness Gastrointestinal Gastrointestinal: Denies abdominal pain, diarrhea, nausea or vomiting Genitourinary Genitourinary ED: Denies dysuria or hematuria Musculoskeletal Musculoskeletal: Denies back pain or neck pain Integumentary Denies abscess or rash Neurologic Neurologic: Reports as per HPI and confusion; Denies headache(s), paresthesias or weakness Psychiatric Psychiatric: Reports hallucinations; Denies anxiety or suicidal thoughts EXAM Physical Exam Const Vital Signs: 06/22/21 20:50 06/22/21 20:53 06/22/21 21:53 Temperature 101.9 F H 101.9 F H 98.6 F Temperature Source Axillary Axillary Oral Pulse Rate 101 H 92 73 Respiratory Rate 24 H 27 H 28 H Respiratory Pattern Tachypnea Blood Pressure 156/83 H 156/83 H 160/69 H Blood Pressure Mean 107 107 99 Pulse Ox 95 98 100 Oxygen Delivery Method Nasal Cannula Nasal Cannula Nasal Cannula Oxygen Flow Rate (L/min) 3 3 2 06/22/21 21:56 06/22/21 22:12 Temperature 98.6 F Temperature Source Oral Pulse Rate Respiratory Rate Respiratory Pattern Blood Pressure Blood Pressure Mean Pulse Ox Oxygen Delivery Method Room Air Oxygen Flow Rate (L/min) 2 Positive well nourished and well developed General Appearance ED: well developed and NAD HEENT Reports moist mucous membranes normocephalic and atraumatic Eyes PERRL and EOMs intact bilaterally Neck full ROM and supple Resp normal respiratory effort and clear to auscultation bilaterally Resp Narrative: Diminished throughout, symmetric Effort and Inspection: able to speak in complete sentences Cardio regular rate, regular rhythm and no murmurs GI non-tender and non-distended Auscultation: normoactive bowel sounds Palpation: soft Back/Spine no CVA tenderness General Back: other FROM Extremity normal to inspection General Extremety ED: Negative for edema, pulses abnormal or tenderness General Extremity: Negative for edema or pulses abnormal Neuro oriented x3, CN's II-XII intact bilaterally and no sensory deficits noted Sensorium / Orientation: awake and alert Motor Exam: strength 5/5 throughout Skin no rashes or lesions noted and no wounds MDM MDM MDM Narrative Medical decision making narrative: Septic work-up obtained on this patient, barely high lactate of 2.1, very elevated white blood count 21.1 leftward shift no bands, source appears to be an early pneumonia in the left lower lobe. Antibiotics ordered, given his delirium he would be best treated initially in the hospital. He is oxygenating well on his 3 L, and feeling relatively well while lying at rest. His tachycardia resolved after just treating his fever and giving him some gentle IV fluids. Lab Data Attestation: I reviewed the patient's lab results. Labs: Laboratory Results - last 24 hr 06/22/21 06/22/21 06/22/21 21:25 21:25 21:40 WBC 21.1 H RBC 4.64 Hgb 13.6 Hct 41.7 MCV 89.9 MCH 29.3 MCHC 32.6 RDW Std Deviation 42.5 RDW Coeff of Kaity 12.9 Plt Count 236 MPV 11.1 Immature Gran % (Auto) 0.500 Neut % (Auto) 88.0 H Lymph % (Auto) 7.3 L [place] % (Auto) 4.0 Eos % (Auto) 0.0 Baso % (Auto) 0.2 Absolute Neuts (auto) 18.6 H Absolute Lymphs (auto) 1.54 Nucleated RBC % 0 Sodium 141 Potassium 4.2 Chloride 105 Carbon Dioxide 31.0 Anion Gap 5 BUN 13 Creatinine 1.18 Estim Creat Clear Calc 29.62 Est GFR (MDRD) Af Amer 75 Est GFR (MDRD) Non-Af 62 BUN/Creatinine Ratio 11.0 Glucose 154 H Lactic Acid 2.1 H* Calcium 11.1 H Total Bilirubin 0.50 AST 12 L ALT 15 L Alkaline Phosphatase 95 Troponin I High Sens 30 Total Protein 7.4 Albumin 3.2 Globulin 4.2 Albumin/Globulin Ratio 0.8 L Urine Color Urine Clarity Urine pH Ur Specific [place] Urine Protein Urine Glucose (UA) Urine Ketones Urine Occult Blood Urine Nitrite Urine Bilirubin Urine Urobilinogen Ur Leukocyte Esterase Urine RBC Urine WBC Ur Squamous Epith Cells Amorphous Sediment Urine Bacteria Urine Mucus 06/22/21 22:00 WBC RBC Hgb Hct MCV MCH MCHC RDW Std Deviation RDW Coeff of Kaity Plt Count MPV Immature Gran % (Auto) Neut % (Auto) Lymph % (Auto) [place] % (Auto) Eos % (Auto) Baso % (Auto) Absolute Neuts (auto) Absolute Lymphs (auto) Nucleated RBC % Sodium Potassium Chloride Carbon Dioxide Anion Gap BUN Creatinine Estim Creat Clear Calc Est GFR (MDRD) Af Amer Est GFR (MDRD) Non-Af BUN/Creatinine Ratio Glucose Lactic Acid Calcium Total Bilirubin AST ALT Alkaline Phosphatase Troponin I High Sens Total Protein Albumin Globulin Albumin/Globulin Ratio Urine Color Yellow Urine Clarity Sl. Cloudy Urine pH 8.0 Ur Specific [place] 1.015 Urine Protein Negative Urine Glucose (UA) Normal Urine Ketones Negative Urine Occult Blood Negative Urine Nitrite Negative Urine Bilirubin Negative Urine Urobilinogen 1 H Ur Leukocyte Esterase Negative Urine RBC 0 SEEN Urine WBC 0 SEEN Ur Squamous Epith Cells 0 SEEN Amorphous Sediment 1+ Urine Bacteria 0 SEEN Urine Mucus 0 SEEN Radiography Chest X-Ray - ED: 1 View, Read by ED Physician, Chronic Changes (COPD) and Left Infiltrate Diagnostic Testing: Clinical Impression(s) from Imaging Studies Chest X-Ray 06/22/21 21:17 IMPRESSION: 1. New left lower lobe airspace disease. This is likely infectious. Six-week follow-up chest x-ray following treatment to ensure resolution is recommended. 2. Advanced emphysematous changes and blunting right costophrenic angle, likely representing small effusion, unchanged. Electronically Signed: James Harrison DO at 22:09 EDT , Rhythm Strip Rhythm Strip: Sinus Rhythm Rate: 80 Ectopy: PVC(s) EKG Initial EKG: Attestation: I personally reviewed and interpreted this EKG as follows: Interpretation: Sinus Rhythm and No Acute Injury Pattern Comments: Old inferior infarct Discharge Plan Triage Chief Complaint: General Illness ED Provider: Biju Romero Dx/Rx/DC Orders Clinical Impression: Sepsis due to pneumonia, COPD (chronic obstructive pulmonary disease), Pneumonia, Delirium due to another medical condition Prescriptions: No Action vit C 150 mg-vit E 30 unit-lutein 5 ec-jmhozcil-xjyky 3 150 mg capsule [id number] ra-nukc-[id number]-mg capsule 1 cap PO QAM RF: 0 lisinopril 10 mg tablet 10 mg PO QDAY Qty: 90 RF: 3 tamsulosin 0.4 mg capsule 0.4 mg PO DAILY RF: 0 Symbicort 160-4.5 mcg/actuation HFA aerosol inhaler 2 puff INHALATION BID RF: 0 Linzess 72 mcg capsule 72 mcg PO DAILY RF: 0 aspirin 81 MG tablet,chewable 81 mg PO DAILY RF: 0 ipratropium-albuterol 1 PUFF inhaler 1 puff INHALATION Q6H PRN (Reason: wheezing sob) RF: 0 atorvastatin [Lipitor] 40 mg tablet 40 mg PO QHS RF: 0 ciprofloxacin HCl [Cipro] 500 mg tablet 500 mg PO BID Qty: 10 RF: 0 oxycodone-acetaminophen 5-325 mg tablet 1 tab PO Q4H PRN (Reason: pain) 7 Days Qty: 14 RF: 0 Spiriva Respimat 2.5 mcg/actuation mist 2 puff INHALATION DAILY Qty: 4 RF: 11 clopidogrel 75 mg tablet 75 mg PO DAILY Qty: 90 RF: 3 metoprolol succinate [Toprol XL] 25 mg tablet extended release 24 hr 12.5 mg PO DAILY Qty: 45 RF: 3 albuterol sulfate 2.5 mg /3 mL (0.083 %) solution for nebulization 2.5 mg INHALATION Q4H PRN PRN (Reason: BREATHING) Qty: 180 RF: 6 Primary Care Provider: Ancelmo Scott Chi Referrals: Ancelmo Scott Chi, MD [Primary Care Provider] - Disposition Disposition: Acute Care Hospital [facility]
[2021-06-22 21:39] LABS: Absolute Lymphocyte Count 1.54 X10^3/uL (0.83-4.51); Absolute Neutrophil Count 18.6 X10^3/uL (2.0-7.7); Basophil# 0.05 X10^3/uL; Basophil% 0.2 % (0-1); Hematocrit 41.7 % (40-54); Hemoglobin 13.6 g/dL (13.0-16.5); Lymphocyte # 1.54 X10^3/ul (0.83-4.51); Lymphocyte % 7.3 % (19-41); Mean Corp Hgb Conc 32.6 g/dL (32-36); Mean Corpuscular Hgb 29.3 pg (27.0-32.0); Mean Corpuscular Volume 89.9 fL (80-94); Mean Platelet Vol. 11.1 fl (6.2-12.0); Monocyte# 0.84 X10^3/uL; NRBC Flagged by Analyzer 0 % (0-5); Neutrophil # 18.57 X10^3/uL (2.7-7.7); Platelet Count 236 K/mm3 (150-450); RBC Distribution Width CV 12.9 % (11.6-14.6); RBC Distribution Width SD 42.5 fl (35.1-43.9); Red Blood Count 4.64 M/mm3 (4.6-6.2); White Blood Count 21.1 K/mm3 (4.4-11.0)
[2021-06-22] MEDS: Acetaminophen 500 MG Tablet 1000 MG PO (21:46)
[2021-06-22 21:53] VITALS: BP 160/69; PULSE 73; RESP 28; TEMP 37; O2SAT 100
[2021-06-22 22:01] LABS: ALB/GLOB Ratio 0.8 RATIO (0.9-2.4); AST(SGOT) 12 U/L (15-37); Alanine Aminotransfer ALT/SGPT 15 U/L (16-61); Albumin, Serum 3.2 g/dL (3.2-5.0); Alkaline Phosphatase 95 U/L (45-117); Anion Gap 5 (5-15); BUN 13 mg/dL (7-18); Calcium,Total 11.1 mg/dL (8.5-10.1); Chloride 105 mmol/L (98-107); Creatinine, Serum 1.18 mg/dL (0.70-1.30); EST Glomerular Filtration Rate 62 mL/min (>60); Est Glom Filt Rate - Afr Amer 75 mL/min (>60); Estimated Creatinine Clearance 29.62 ml/min; Globulin 4.2 g/dL (2.2-4.2); Glucose 154 mg/dL (74-106); Potassium 4.2 mmol/L (3.5-5.1); Protein, Total 7.4 g/dL (6.4-8.2); Sodium Level 141 mmol/L (136-145); Troponin-I HS 30 pg/mL (3.0-78.0)
[2021-06-22 22:09] LABS: Bacteria 0 SEEN /hpf (None Seen); Mucous, Urine 0 SEEN /hpf (<or=2+); Red Blood Cells-Urine 0 SEEN /hpf (0-5); Squamous Epithelial Cells - UA 0 SEEN /hpf (0-5); White Blood Cells 0 SEEN /hpf (0-5)
[2021-06-22 22:11] LABS: Color, Urine Yellow (Yellow); Glucose, Dipstick Normal (Normal); Ketone-Dipstick Negative (Negative); Leukocyte Esterase-Dipstick Negative /ul (Negative); Nitrite-Dipstick Negative (Negative); Occult Blood-Urine Negative /ul (Negative); Protein-Dipstick Negative (Negative); Specific Gravity, Urine 1.015 (1.002-1.030); Urine Bilirubin Dipstick Negative (Negative); Urine Clarity Sl. Cloudy (Clear); Urine Urobilinogen 1 mg/dl (Normal)
[2021-06-22 22:12] VITALS: TEMP 37
--- NOTE | 2021-06-22 22:16 | ED.RN ---
UNABLE TO OBTAIN SECOND SET OF BLOOD CULTURES AT THIS TIME.
[2021-06-22 22:22] LABS: Amorphous Sediment 1+
[2021-06-22 22:32] LABS: Lactic Acid 2.1 mmol/L (0.4-1.9)
[2021-06-22 23:00] VITALS: BP 123/76; PULSE 67; RESP 22; TEMP 37.1; O2SAT 100
[2021-06-22 23:03] VITALS: BP 115/64; PULSE 69; RESP 21; TEMP 37.1; O2SAT 100
--- NOTE | 2021-06-22 23:28 | HP.PCM.HOS_ITS ---
HPI - General General Date of Admission: 06/22/21 HPI Narrative ELODIA PARK, is a 85 M who presents to the hospital with confusion and chills as well as a fever. According to his family he started feeling chilled and fever today no significant coughing but they also noticed that he was more confused than he normally is. In the ER he did not know that he was at the hospital but he is very pleasant. He was found to have an elevated white count with a left lower lobe pneumonia on chest x-ray. He has chronic hypoxic respiratory failure and normally requires 3 to 4 L nasal cannula. 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 COPD (chronic obstructive pulmonary disease) Dysphagia Dyspnea Essential (primary) hypertension Hyperlipidemia Multiple premature ventricular complexes Non-rheumatic aortic stenosis Old inferior wall myocardial infarction On home oxygen therapy Pulmonary cachexia due to COPD RLS (restless legs syndrome) Shortness of breath on exertion Squamous cell skin cancer Stage 3 severe COPD by GOLD classification Stroke/cerebrovascular accident Home Medications aspirin 81 mg PO DAILY 07/24/16 [History Last Taken 03/11/21] tamsulosin 0.4 mg capsule 0.4 mg PO DAILY cap 12/21/18 [History Last Taken Unknown] lisinopril 10 mg tablet 10 mg PO QDAY #90 tab 01/18/19 [Rx Last Taken Unknown] tiotropium bromide 2.5 mcg/actuation mist for inhalation 2 puff INHALATION DAILY #4 g 01/20/19 [Rx Last Taken Unknown] clopidogrel 75 mg tablet 75 mg PO DAILY #90 tab 02/22/20 [Rx Last Taken 03/05/21] albuterol sulfate 2.5 mg INHALATION Q4H PRN PRN #180 ml 02/27/21 [Rx Last Taken Unknown] atorvastatin [Lipitor] 40 mg PO QHS 03/12/21 [History Last Taken Unknown] metoprolol succinate [Toprol XL] 25 mg PO DAILY 06/22/21 [History Last Taken Unknown] Allergy/AdvReac Type Severity Reaction Status Date / Time No Known Allergies Allergy Verified 06/16/21 14:16 Family History Mother CVA (cerebral vascular accident) Brother Myocardial infarction age 50 Surgical History H/O coronary artery bypass surgery (10/24/02) History of aortic valve replacement with tissue graft (10/24/02) History of coronary artery stent placement (1997) Social History Smoking Status: Former smoker Tobacco: How many years used: 50 how long ago did patient quit smokin, 1ppd second hand exposure: Yes ROS Constitutional Constitutional: Reports chills and fever(s); Denies fatigue or malaise Eyes Eyes: Denies blurry vision ENT HEENT: Denies headache(s) or nasal discharge Cardiovascular Cardiovascular: Denies chest pain, dyspnea on exertion or syncope Respiratory/Chest Respiratory/Chest: Denies cough, shortness of breath at rest or shortness of breath with exertion Gastrointestinal Gastrointestinal: Denies constipation, diarrhea, nausea or vomiting Genitourinary Genitourinary: Denies dysuria Neurologic Neurologic: Reports confusion; Denies focal weakness, numbness or tremor(s) Psychiatric Psychiatric: Denies anxiety or depression Vital Signs Vital Signs Vital Signs: 06/22/21 20:50 06/22/21 20:53 06/22/21 21:53 Temperature 101.9 F H 101.9 F H 98.6 F Temperature Source Axillary Axillary Oral Pulse Rate 101 H 92 73 Respiratory Rate 24 H 27 H 28 H Respiratory Pattern Tachypnea Blood Pressure 156/83 H 156/83 H 160/69 H Blood Pressure Mean 107 107 99 Pulse Ox 95 98 100 Oxygen Delivery Method Nasal Cannula Nasal Cannula Nasal Cannula Oxygen Flow Rate (L/min) 3 3 2 06/22/21 21:56 06/22/21 22:12 06/22/21 23:00 Temperature 98.6 F 98.8 F Temperature Source Oral Oral Pulse Rate 67 Respiratory Rate 22 H Respiratory Pattern Blood Pressure 123/76 H Blood Pressure Mean 91 Pulse Ox 100 Oxygen Delivery Method Room Air Room Air Oxygen Flow Rate (L/min) 2 06/22/21 23:03 Temperature 98.8 F Temperature Source Oral Pulse Rate 69 Respiratory Rate 21 H Respiratory Pattern Blood Pressure 115/64 Blood Pressure Mean 81 Pulse Ox 100 Oxygen Delivery Method Nasal Cannula Oxygen Flow Rate (L/min) 2 Weight Weight: 102 lb 11.767 oz Body Mass Index (BMI) 14.3 Physical Exam Const alert General Appearance: cooperative Orientation / Consciousness: confused Nutritional Appearance: cachectic HEENT normocephalic Mouth: dry mucous membranes Eyes PERRL, EOMs intact bilaterally and conjunctivae normal Neck supple and no JVD Resp normal respiratory effort, no retractions and no use of accessory muscles Auscultation: diminished lung sounds; Negative for crackles, rales, rhonchi or wheezes Cardio regular rate, regular rhythm, S1 normal heart sound, S2 normal heart sound and no murmurs GI soft to palpation, non-tender and non-distended; Negative for hepatosplenomegaly Extremity no clubbing, cyanosis or edema Skin no rashes or lesions noted Neuro no focal motor deficits and no sensory deficits noted Psych affect normal Appearance: appropriate Results Lab / Micro Data Result Diagrams: 06/22/21 21:25 06/22/21 21:25 Labs: Laboratory Results - last 24 hr 06/22/21 21:25: WBC 21.1 H, RBC 4.64, Hgb 13.6, Hct 41.7, MCV 89.9, MCH 29.3, MCHC 32.6, RDW Std Deviation 42.5, RDW Coeff of Kaity 12.9, Plt Count 236, MPV 11.1, Immature Gran % (Auto) 0.500, Neut % (Auto) 88.0 H, Lymph % (Auto) 7.3 L, [place] % (Auto) 4.0, Eos % (Auto) 0.0, Baso % (Auto) 0.2, Absolute Neuts (auto) 18.6 H, Absolute Lymphs (auto) 1.54, Nucleated RBC % 0 06/22/21 21:25: Sodium 141, Potassium 4.2, Chloride 105, Carbon Dioxide 31.0, Anion Gap 5, BUN 13, Creatinine 1.18, Estim Creat Clear Calc 29.62, Est GFR (MDRD) Af Amer 75, Est GFR (MDRD) Non-Af 62, BUN/Creatinine Ratio 11.0, Glucose 154 H, Calcium 11.1 H, Total Bilirubin 0.50, AST 12 L, ALT 15 L, Alkaline Phosp hatase 95, Troponin I High Sens 30, Total Protein 7.4, Albumin 3.2, Globulin 4.2, Albumin/Globulin Ratio 0.8 L 06/22/21 21:40: Lactic Acid 2.1 H* 06/22/21 22:00: Urine Color Yellow, Urine Clarity Sl. Cloudy, Urine pH 8.0, Ur Specific [place] 1.015, Urine Protein Negative, Urine Glucose (UA) Normal, Urine Ketones Negative, Urine Occult Blood Negative, Urine Nitrite Negative, Urine Bilirubin Negative, Urine Urobilinogen 1 H, Ur Leukocyte Esterase Negative, Urine RBC 0 SEEN, Urine WBC 0 SEEN, Ur Squamous Epith Cells 0 SEEN, Amorphous Sediment 1+, Urine Bacteria 0 SEEN, Urine Mucus 0 SEEN Micro: Microbiology 06/22/21 21:40 Nasal Secretion SARS-CoV-2 & FLU Antigen (Rapid) - Final Rhythm Strip Rhythm Strip: Sinus Rhythm Rate: 80 Ectopy: PVC(s) Radiology Impression Chest X-Ray 06/22/21 21:17 IMPRESSION: 1. New left lower lobe airspace disease. This is likely infectious. Six-week follow-up chest x-ray following treatment to ensure resolution is recommended. 2. Advanced emphysematous changes and blunting right costophrenic angle, likely representing small effusion, unchanged. Electronically Signed: James Harrison DO at 22:09 EDT , Brain CT 06/22/21 21:19 IMPRESSION: Atrophy with chronic small vessel ischemic changes. Old lacunar infarctions. Chronic right sphenoid sinusitis. No acute intracranial abnormality. Electronically Signed: Tommie Askew MD at 23:16 EDT , Assessment & Plan Assessment/Plan (1) Sepsis due to pneumonia: PLAN: 1. Sepsis secondary to left lower lobe pneumonia with metabolic encephalopathy/chronic hypoxic respiratory failure ? Continue with Rocephin and azithromycin ? Continue with sputum culture ? He is on his oxygen which is chronic at 3-4 due to COPD ? Continue with gentle IV fluids 2. HTN/HLD/CAD status post CABG and AVR and stents ? Continue with his home blood pressure medications his blood pressure is currently stable ? With aspirin, Plavix, Lipitor 3. COPD ? Not currently in exacerbation ? Continue with his home oxygen and inhalers 4. BPH ? Stable ? Continue with Flomax DVT: Lovenox Charges/Coding Visit Charges Inpatient E&M: 16823 Init Hosp L3
[2021-06-22 23:59] VITALS: BMI 13.2
[2021-06-23] VITALS (7 sets, daily range): BP systolic 106–133; BP diastolic 50–68; PULSE 56–63; RESP 18–20; TEMP 36.4–37.2; O2SAT 98–99
[2021-06-23] MEDS: 0.9% Normal Saline 1,000 ML 75 ML IV ×3 (00:28→21:09)
[2021-06-23 01:54] LABS: Reflex Lactate? Y
[2021-06-23 02:36] LABS: Lactic Acid 1.2 mmol/L (0.4-1.9)
[2021-06-23 06:26] LABS: Absolute Lymphocyte Count 2.26 X10^3/uL (0.83-4.51); Absolute Neutrophil Count 15.4 X10^3/uL (2.0-7.7); Basophil# 0.03 X10^3/uL; Basophil% 0.2 % (0-1); Hematocrit 32.1 % (40-54); Hemoglobin 10.1 g/dL (13.0-16.5); Lymphocyte # 2.26 X10^3/ul (0.83-4.51); Lymphocyte % 12.1 % (19-41); Mean Corp Hgb Conc 31.5 g/dL (32-36); Mean Corpuscular Volume 92.2 fL (80-94); Monocyte# 0.87 X10^3/uL; Monocyte% 4.7 % (0-10); NRBC Flagged by Analyzer 0 % (0-5); Neutrophil # 15.42 X10^3/uL (2.7-7.7); Neutrophil % 82.4 % (47-70); Platelet Count 165 K/mm3 (150-450); RBC Distribution Width CV 13.2 % (11.6-14.6); Red Blood Count 3.48 M/mm3 (4.6-6.2); White Blood Count 18.7 K/mm3 (4.4-11.0)
[2021-06-23 06:48] LABS: Anion Gap 3 (5-15); BUN 15 mg/dL (7-18); BUN/Creat Ratio 17.9 RATIO (10-20); Calcium,Total 9.6 mg/dL (8.5-10.1); Chloride 106 mmol/L (98-107); Creatinine, Serum 0.84 mg/dL (0.70-1.30); EST Glomerular Filtration Rate 92 mL/min (>60); Est Glom Filt Rate - Afr Amer 111 mL/min (>60); Estimated Creatinine Clearance 38.48 ml/min; Glucose 95 mg/dL (74-106); Potassium 3.8 mmol/L (3.5-5.1); Sodium Level 141 mmol/L (136-145)
[2021-06-23] MEDS: Metoprolol(XL)Succ 25 MG Tablet 12.5 MG PO (09:24)
[2021-06-23] MEDS: Tamsulosin HCl 0.4 MG Capsule PO (09:24)
[2021-06-23] MEDS: Aspirin 81 MG TAB.CHEW PO (09:25)
[2021-06-23] MEDS: Enoxaparin 30 MG/0.3 ML Syringe SC (09:25)
[2021-06-23] MEDS: Clopidogrel Bisulfate 75 MG Tablet PO (09:25)
--- NOTE | 2021-06-23 09:36 | CASEMGMT ---
Addendum entered by Jessica Bates 06/23/21 14:47: TC to 's office, spoke with Alexa, appt set up for tomorrow at 2:20pm. If pt dc's sooner, he can go straight to the office. If pt shouldn't dc tomorrow, REJI BUI will call to change appt to Wednesday. Pt aware of appt. Addendum entered by Jessica Bates 06/23/21 13:05: Received confirmation from Fidelia at [facility], able to accept pt once pt sees . Addendum entered by Jessica Bates 06/23/21 11:59: REJI BUI in to pt room, pt and son present. Pt reports pt does have DPOA and she will bring in to be scanned into the chart. She states pt does have portable O2 and will bring in for dc. Pt also has a pox. Pt agreeable to [facility] as well as family. Patient was provided a list of [facility] providers including quality and resource use data and consistent with the patient?s preferred geographic region, medical needs, and insurance network. The patient?s preferred provider is [facility]. TC to Fidelia, referral made. Will await acceptance. Addendum entered by Jessica Bates 06/23/21 10:30: TC to [facility], spoke with Michael, pt rx is 3L with exertion only. Original Note: REJI BUI Assessment: Face to Face with pt for initial transition planning/care coordination assessment. REJI BUI introduced self and role at [facility], pt voices understanding and consents to assessment. Pt is A/O x4 and answers all questions appropriately at this time. Pt sitting up in bed with O2 on in no distress. Care providers, pharmacy, and demographics verified/updated. Admitting Dx: sepsis from pna PCP:Tyler Specialists:eye doctor, pt unsure of name; Giovanni, ENT; Hayley derm; Gunner, cardio; Juliet pulvicky Preferred Pharmacy: [facility] Insurance: [facility] Prescription Benefit: yes LW/HPOA: Pt states he thinks he has a LW/DPOA and his DPOA is his granddtr Caridad Naya. Pt is aware this is not on file at [facility] and he may bring in to be scanned into the chart. LNOK: Rhonda Del Cid, Living Arrangements: Pt lives with in a mobile home with 4 steps to enter with a rail. Pt reports he needs assist with ADL's and denies concerns at home. Transportation: Pt drives self and denies concerns with transportation. DME/HHC/SNF: Pt has a FWW, power scooter and is in the process of getting a new tub. Pt reports he has O2 through [employer] and uses 3L cont. Currently he has a walk in tub. Pt states he has had HHC in the past but is unsure of which agency it was from. Pt denies hx of SNF stays. Pt states no concerns with going home at time of dc. He designates his to be his field contact person for dc planning. Pt states she will be in soon. Discussed HHC with patient, he would like RN CM to come back in when pressent to discuss. Pt states no further concerns/needs. CM to follow. Advised pt to ask CM if any further question/concerns/needs arise, voices understanding. Pt Goal: Home Plan: Home, possible HHC.
--- NOTE | 2021-06-23 11:08 | PN.HOSP_ITS ---
Documented by User: Cari Joyce KISS MACHINE OPERATOR, KISS MACHINE OPERATOR-C 06/23/21 11:17 Subjective Subjective Patient seen and examined. Denies fever, cough. Reports shortness of breath is improving. States he wears 3 L nasal cannula at baseline. Objective Data Objective Data Vital Signs: Vital Signs Temp Pulse Resp BP Pulse Ox 98.1 F 57 L 18 109/50 L 99 06/23/21 08:51 06/23/21 09:24 06/23/21 08:51 06/23/21 08:51 06/23/21 08:51 Oxygen Flow Rate (L/min) 3 Oxygen Delivery Method Nasal Cannula Weight: 95 lb 0.308 oz Body Mass Index (BMI) 13.2 Intake & Output: Intake and Output for Last 24 Hours 06/21/21 06/22/21 06/23/21 23:59 23:59 23:59 Intake Total 550 / 550 255 / 255 Balance 550 / 550 255 / 255 Lab / Micro Data Result Diagrams: 06/23/21 05:15 06/23/21 05:15 Labs: Laboratory Results - last 24 hr 06/22/21 21:25: WBC 21.1 H, RBC 4.64, Hgb 13.6, Hct 41.7, MCV 89.9, MCH 29.3, MCHC 32.6, RDW Std Deviation 42.5, RDW Coeff of Kaity 12.9, Plt Count 236, MPV 11.1, Immature Gran % (Auto) 0.500, Neut % (Auto) 88.0 H, Lymph % (Auto) 7.3 L, Winkler % (Auto) 4.0, Eos % (Auto) 0.0, Baso % (Auto) 0.2, Absolute Neuts (auto) 18.6 H, Absolute Lymphs (auto) 1.54, Nucleated RBC % 0 06/22/21 21:25: Sodium 141, Potassium 4.2, Chloride 105, Carbon Dioxide 31.0, Anion Gap 5, BUN 13, Creatinine 1.18, Estim Creat Clear Calc 29.62, Est GFR (MDRD) Af Amer 75, Est GFR (MDRD) Non-Af 62, BUN/Creatinine Ratio 11.0, Glucose 154 H, Calcium 11.1 H, Total Bilirubin 0.50, AST 12 L, ALT 15 L, Alkaline Phosphatase 95, Troponin I High Sens 30, Total Protein 7.4, Albumin 3.2, Globulin 4.2, Albumin/Globulin Ratio 0.8 L 06/22/21 21:40: Lactic Acid 2.1 H* 06/22/21 22:00: Urine Color Yellow, Urine Clarity Sl. Cloudy, Urine pH 8.0, Ur Specific Dayhoit 1.015, Urine Protein Negative, Urine Glucose (UA) Normal, Urine Ketones Negative, Urine Occult Blood Negative, Urine Nitrite Negative, Urine Bilirubin Negative, Urine Urobilinogen 1 H, Ur Leukocyte Esterase Negative, Urine RBC 0 SEEN, Urine WBC 0 SEEN, Ur Squamous Epith Cells 0 SEEN, Amorphous Sediment 1+, Urine Bacteria 0 SEEN, Urine Mucus 0 SEEN 06/23/21 02:04: Lactic Acid 1.2 06/23/21 05:15: WBC 18.7 H, RBC 3.48 L, Hgb 10.1 L, Hct 32.1 L, MCV 92.2, MCH 29.0, MCHC 31.5 L, RDW Std Deviation 44.0 H, RDW Coeff of Kaity 13.2, Plt Count 165, MPV 11.0, Immature Gran % (Auto) 0.600, Neut % (Auto) 82.4 H, Lymph % (Auto) 12.1 L, Winkler % (Auto) 4.7, Eos % (Auto) 0.0, Baso % (Auto) 0.2, Absolute Neuts (auto) 15.4 H, Absolute Lymphs (auto) 2.26, Nucleated RBC % 0 06/23/21 05:15: Sodium 141, Potassium 3.8, Chloride 106, Carbon Dioxide 32.0, Anion Gap 3 L, BUN 15, Creatinine 0.84, Estim Creat Clear Calc 38.48, Est GFR (MDRD) Af Amer 111, Est GFR (MDRD) Non-Af 92, BUN/Creatinine Ratio 17.9, Glucose 95, Calcium 9.6 Micro: Microbiology 06/23/21 01:06 Sputum, Expectorated/Coughed Gram Stain - Final 06/22/21 21:40 Nasal Secretion SARS-CoV-2 & FLU Antigen (Rapid) - Final Radiography Diagnostic Testing: Radiology Impression Chest X-Ray 06/22/21 21:17 IMPRESSION: 1. New left lower lobe airspace disease. This is likely infectious. Six-week follow-up chest x-ray following treatment to ensure resolution is recommended. 2. Advanced emphysematous changes and blunting right costophrenic angle, likely representing small effusion, unchanged. Electronically Signed: James Harrison DO at 22:09 EDT , Brain CT 06/22/21 21:19 IMPRESSION: Atrophy with chronic small vessel ischemic changes. Old lacunar infarctions. Chronic right sphenoid sinusitis. No acute intracranial abnormality. Electronically Signed: Tomime Askew MD at 23:16 EDT , Rhythm Strip Rhythm Strip: Sinus Rhythm Rate: 80 Ectopy: PVC(s) Physical Exam Const alert and oriented x3 Orientation / Consciousness: awake, oriented to person, oriented to place and oriented to time Nutritional Appearance: cachectic HEENT normocephalic and moist oral mucous membranes Eyes PERRL, EOMs intact bilaterally and conjunctivae normal Neck no lymphadenopathy Resp clear to auscultation bilaterally Auscultation: diminished lung sounds Cardio regular rate and regular rhythm Peripheral Pulses: pulses 2+ throughout GI normal to inspection, nondistended, normoactive bowel sounds, non-tender and non-distended Extremity normal to inspection Skin no rashes or lesions noted Lesions: no lesions Rashes: no rashes Trauma: no lacerations or abrasions Neuro CN's II-XII intact bilaterally, no focal motor deficits, no sensory deficits noted and deep tendon reflexes 2+ bilaterally Psych mental status grossly normal and affect normal Assessment & Plan Assessment/Plan (1) Sepsis due to pneumonia: PLAN: 1. Sepsis secondary to left lower lobe pneumonia, chronic hypoxic respiratory failure-on 3 L nasal cannula at baseline secondary to underlying COPD. On baseline home O2 requirements. Continue IV Rocephin and IV azithromycin. Sputum and blood culture culture pending. Albuterol and DuoNeb aerosols. PT/OT. 2. Chronic COPD-as needed albuterol aerosol. 3. CAD with history of CABG-continue aspirin, Plavix, statin. 4. History of aortic valve replacement 5. Hypertension-stable, continue current regimen. 6. Hyperlipidemia-continue statin. 7. BPH-continue Flomax. 8. Severe protein calorie malnutrition-as evidenced by cachectic appearance with muscle and fat loss, BMI 13. Dietitian consult for supplement recommendations. DVT prophylaxis-Lovenox subcu This patient was seen by MAURY Altamirano under the supervision of Dr. Haji. Time spent examining patient, reviewing data and subsequent management of care: 13 minutes Documented by User: Dr. [place] Haji, 06/23/21 12:06 Subjective Subjective Breathing well. Objective Data Lab / Micro Data Result Diagrams: 06/23/21 05:15 06/23/21 05:15 Physical Exam Const alert Resp normal respiratory effort, no retractions, no use of accessory muscles and clear to auscultation bilaterally Cardio regular rate, regular rhythm, S1 normal heart sound and S2 normal heart sound GI normal to inspection, nondistended, normoactive bowel sounds, soft to palpation, non-tender and non-distended Extremity normal to inspection Neuro Sensorium / Orientation: awake and alert Assessment & Plan Assessment/Plan (1) Sepsis due to pneumonia: (2) Pneumonia: (3) COPD exacerbation: PLAN: Patient seen and examined independently. Data and vitals reviewed. I agree with the above note by the nurse practitioner. 1. Sepsis POA qSOFA 2 upon admission resolved 2. Pneumonia continue CTX and azithromycin 3. Acute COPD exacerbation Start pred burst BDs 4. Severe protein malnutrition complicates care nutrition DW pt's and son at bedside Greater than 30 minutes of which greater than 50% of the time was discussing respiratory failure, COPD exacerbation, pneumonia with patient and family. Charges/Coding Visit Charges Inpatient E&M: 14962 Subs Hosp L3
[2021-06-23] MEDS: predniSONE 20 MG Tablet 40 MG PO (12:20)
--- NOTE | 2021-06-23 14:09 | CHAPLAIN ---
Type of Pastoral Visit _x__ Initial Visit ___ Follow-up Visit ___ On-call Visit ___ General Patient Visit ___ Spiritual Assessment ___ Family Conference ___ Bereavement ___ Rapid Response ___ Code Blue ___ Other (describe below) Pastoral Care Referral From _x__ Patient ___ Family ___ Nurse ___ Physician ___ Woodwind Reeds Cutter ___ Psych Sales Specialist ___ Other (describe below) Sacrament/Intervention _x__ Active listening ___ Anointing ___ Spiritism ___ Bereavement ___ Communion _x__ Brandi exploration ___ ___ Life review _x__ Prayer ___ Reconciliation ___ Sacrament of Sick _x__ Supportive presence ___ Wedding ___ Other (describe below) Pastoral Comments patient is welcoming; pt gives health details; pt speaks of his family; patient makes statement about when that time comes and relates this to brandi in God; pt is admitting to hesitancy about being ready for when would come; discussion about brandi in God and brandi and preparedness ensues
[2021-06-23] MEDS: Ceftriaxone 1 GM/50 ML BAG IV (21:09)
[2021-06-23] MEDS: Atorvastatin Calcium 40 MG Tablet PO (21:09)
[2021-06-24 02:31] VITALS: BP 128/74; PULSE 47; RESP 18; TEMP 36.3; O2SAT 100
[2021-06-24] MEDS: guaiFENesin 10 ML UDC (200MG/10ML) 20 ML PO (03:11)
[2021-06-24 06:18] LABS: Absolute Lymphocyte Count 1.46 X10^3/uL (0.83-4.51); Absolute Neutrophil Count 9.7 X10^3/uL (2.0-7.7); Basophil# 0.01 X10^3/uL; Basophil% 0.1 % (0-1); Hematocrit 30.2 % (40-54); Hemoglobin 9.5 g/dL (13.0-16.5); Lymphocyte # 1.46 X10^3/ul (0.83-4.51); Lymphocyte % 12.7 % (19-41); Mean Corp Hgb Conc 31.5 g/dL (32-36); Mean Corpuscular Hgb 29.2 pg (27.0-32.0); Mean Corpuscular Volume 92.9 fL (80-94); Mean Platelet Vol. 11.3 fl (6.2-12.0); Monocyte# 0.31 X10^3/uL; Monocyte% 2.7 % (0-10); NRBC Flagged by Analyzer 0 % (0-5); Neutrophil # 9.67 X10^3/uL (2.7-7.7); Neutrophil % 83.8 % (47-70); Platelet Count 146 K/mm3 (150-450); RBC Distribution Width SD 44.1 fl (35.1-43.9); Red Blood Count 3.25 M/mm3 (4.6-6.2); White Blood Count 11.5 K/mm3 (4.4-11.0)
[2021-06-24 07:25] VITALS: O2SAT 99
[2021-06-24] MEDS: predniSONE 20 MG Tablet 40 MG PO (08:37)
[2021-06-24] MEDS: Aspirin 81 MG TAB.CHEW PO (08:37)
[2021-06-24 09:48] VITALS: BP 131/73; PULSE 50; RESP 18; TEMP 36.5; O2SAT 100
--- NOTE | 2021-06-24 09:56 | CASEMGMT ---
Addendum entered by Jessica Bates 06/24/21 10:26: Pt does not qualify for increased O2 needs. Original Note: Spoke with pt nurse to make aware pt ordered O2 and what is needed for testing. She is also aware of appt with at 2:20pm today after dc. Notified Fidelia at [facility] that pt also has appt.
[2021-06-24 10:03] VITALS: O2SAT 87; O2SAT 93; O2SAT 95
--- NOTE | 2021-06-24 10:04 | PCM.DC ---
Discharge Instructions Diet Discharge Diet: No restrictions Activity Discharge Activity: Return to Normal Activity Dressing / Incision Call your doctor if you observe: Shortness of breath, Dizziness and Chest pain Follow Up Care Test Results: Test results from this visit will be discussed in further detail at your follow-up appointment, if applicable. Discharge Plan Admission Admit Date/Time: 06/22/21 23:14 Primary Reason for Your Visit: Pneumonia Attending Provider: North Haji Primary Care Provider: Ancelmo Scott Chi Discharge Orders/Prescriptions Prescriptions: New prednisone 20 mg Tablet 40 mg PO BREAKFAST 3 Days Qty: 6 RF: 0 amoxicillin 875 mg tablet 875 mg PO BID Qty: 12 RF: 0 Continued lisinopril 10 mg tablet 10 mg PO QDAY Qty: 90 RF: 3 tamsulosin 0.4 mg capsule 0.8 mg PO DAILY RF: 0 aspirin 81 MG tablet,chewable 81 mg PO DAILY RF: 0 metoprolol succinate [Toprol XL] 25 mg tablet extended release 24 hr 12.5 mg PO DAILY RF: 0 Spiriva Respimat 2.5 mcg/actuation mist 2 puff INHALATION DAILY RF: 0 clopidogrel 75 mg tablet 75 mg PO DAILY Qty: 90 RF: 3 albuterol sulfate 2.5 mg /3 mL (0.083 %) solution for nebulization 2.5 mg INHALATION Q4H PRN PRN (Reason: BREATHING) Qty: 180 RF: 6 Referrals / Follow Up: Ancelmo Scott Chi, MD [Primary Care Provider] - 06/24/21 2:20 pm Nela King NP, [facility] [Nurse Practitioner] - See Referral Note (As scheduled 07/21/21) Disposition Disposition (needs filled in before D/C Order can be placed): Home Health Service
[2021-06-24] MEDS: Clopidogrel Bisulfate 75 MG Tablet PO (10:09)
[2021-06-24] MEDS: Tamsulosin HCl 0.4 MG Capsule PO (10:09)
[2021-06-24] MEDS: Enoxaparin 40 MG/0.4 ML Syringe SC (10:09)
[2021-06-24 10:10] VITALS: BP 131/73; PULSE 50
[2021-06-24] MEDS: Metoprolol(XL)Succ 25 MG Tablet 12.5 MG PO (10:10)
[2021-06-24] MEDS: Lisinopril 10 MG Tablet PO (10:11)
--- NOTE | 2021-06-24 10:21 | PCM.DC.SUM ---
Documented by User: Cari Joyce NP, AGRICULTURAL ENGINEERING TECHNOLOGIST-C 06/24/21 10:41 Providers Date of Admission: 06/22/21 Date of Discharge: 06/24/21 Primary Care Physician: Dr. Ancelmo Scott MD Reason For Visit: sepsis from pneumonia Diagnosis Discharge Diagnosis (1) Sepsis due to pneumonia: Status: Acute Code(s): J18.9 - Pneumonia, unspecified organism; A41.9 - Sepsis, unspecified organism (2) Pneumonia: Status: Acute Code(s): J18.9 - Pneumonia, unspecified organism (3) COPD exacerbation: Status: Chronic Code(s): J44.1 - Chronic obstructive pulmonary disease with (acute) exacerbation Medications at Discharge Home Medications aspirin 81 mg PO DAILY 07/24/16 tamsulosin 0.4 mg capsule 0.8 mg PO DAILY cap 12/21/18 lisinopril 10 mg tablet 10 mg PO QDAY #90 tab 01/18/19 clopidogrel 75 mg tablet 75 mg PO DAILY #90 tab 02/22/20 albuterol sulfate 2.5 mg INHALATION Q4H PRN PRN #180 ml 02/27/21 metoprolol succinate [Toprol XL] 12.5 mg PO DAILY 06/22/21 Spiriva Respimat 2 puff INHALATION DAILY 06/23/21 amoxicillin-pot clavulanate 1 tab PO BID 6 Days #12 tab 06/24/21 prednisone 40 mg PO BREAKFAST 3 Days #6 tab 06/24/21 Hospital Course Operations None Procedures None Summary of Care Provided Hospital Course: Patient is an 85-year-old male admitted 06/22/2021 due to confusion and chills, fever. 1. Sepsis secondary to left lower lobe pneumonia, chronic hypoxic respiratory failure-on 3 L nasal cannula at baseline with exertion secondary to underlying COPD. Repeat home testing prior to discharge. IV Rocephin and IV azithromycin during admission, transition to Augmentin at discharge to complete course. Sputum and blood cultures unremarkable. Home with home health at discharge. Speech therapy consulted during admission. To undergo swallow study prior to discharge, follow dietary modifications per speech therapy recommendations. Patient also has follow-up with GI in June for ongoing dysphagia evaluation. 2. Acute exacerbation of chronic COPD-continue home inhaler regimen. Prednisone burst at discharge. 3. CAD with history of CABG-continue aspirin, Plavix, statin. 4. History of aortic valve replacement 5. Hypertension-stable, continue current regimen. 6. Hyperlipidemia-continue statin. 7. BPH-continue Flomax. 8. Severe protein calorie malnutrition-as evidenced by cachectic appearance with muscle and fat loss, BMI 13. Dietitian consult for supplement recommendations. Physical Exam Const alert and oriented x3 Orientation / Consciousness: awake, oriented to person, oriented to place and oriented to time Nutritional Appearance: cachectic HEENT normocephalic and moist oral mucous membranes Eyes PERRL, EOMs intact bilaterally and conjunctivae normal Neck no lymphadenopathy Resp clear to auscultation bilaterally Auscultation: diminished lung sounds Cardio regular rate and regular rhythm Peripheral Pulses: pulses 2+ throughout GI normal to inspection, nondistended, normoactive bowel sounds, non-tender and non-distended Extremity normal to inspection Skin no rashes or lesions noted Lesions: no lesions Rashes: no rashes Trauma: no lacerations or abrasions Neuro CN's II-XII intact bilaterally, no focal motor deficits, no sensory deficits noted and deep tendon reflexes 2+ bilaterally Psych mental status grossly normal and affect normal Patient seen and examined prior to discharge. Physical assessment as noted above. Patient is stable for discharge with follow up recommendations as noted above. This patient was seen by MAURY Altamirano under the supervision of Dr. Haji. Time spent examining patient, reviewing data and subsequent management of care: 16 minutes Medical Records Data Medical Nutrition Assessment Dietitian: Malnutrition Criteria Met Start: 06/23/21 13:15 Freq: Status: Active Protocol: Document 06/23/21 13:15 [facility] (Rec: 06/23/21 13:16 [facility] [id number]) Nutrition Malnutrition Evidence of Malnutrition Exists Yes Malnutrition (severe): Chronic Evidenced By Suboptimal Energy Intake ( Severe),Weight Loss (Severe), Physical Changes (Severe) Clinical Problem Chronic Disease or Condition Related Malnutrition Etiology related to pt inability to consume adequate nutrition to meet increased nutritional needs required w/ COPD Signs/Symptoms as evidenced by pt w/ <50% po intake of normal for several years, wt loss of 17.6% x 1 yr, 10.4% wt loss x 7 mo and obvious fat/muscle loss in arms/legs, clavicle, acromion process, temporal/orbital/ buccal areas. Status Active Problem Recommendation Dietitian Recommendations/Changes Will continue diet as ordered Will continue oral nutrition supplement at [facility] as ordered Will provide fortified oatmeal w/ Breakfast, fort potatoes and 4 oz vanilla magic cup/ chocolate ensure milkshake w/ Lunch and Dinner Will monitor for changes in pt nutritional status Weight / BMI Weight Weight: 108 lb 7.479 oz Body Mass Index (BMI) 13.2 ABG / Lab / Microbiology Data Result Diagrams: 06/24/21 05:45 06/23/21 05:15 Laboratory: Laboratory Results - last 24 hr 06/24/21 05:45: WBC 11.5 H, RBC 3.25 L, Hgb 9.5 L, Hct 30.2 L, MCV 92.9, MCH 29.2, MCHC 31.5 L, RDW Std Deviation 44.1 H, RDW Coeff of Kaity 13.0, Plt Count 146 L, MPV 11.3, Immature Gran % (Auto) 0.700, Neut % (Auto) 83.8 H, Lymph % (Auto) 12.7 L, [place] % (Auto) 2.7, Eos % (Auto) 0.0, Baso % (Auto) 0.1, Absolute Neuts (auto) 9.7 H, Absolute Lymphs (auto) 1.46, Nucleated RBC % 0 Microbiology: Microbiology 06/23/21 01:06 Sputum, Expectorated/Coughed Gram Stain - Final 06/23/21 01:06 Sputum, Expectorated/Coughed Respiratory Culture - Preliminary Appears to be normal respiratory mikhail. Further studies to follow. 06/22/21 22:00 Urine, Clean Catch Urine Culture - Final Mixed Gram Pos & Gram Neg Org 06/22/21 22:00 Urine, Clean Catch Legionella Antigen - Final 06/22/21 22:00 Urine, Clean Catch Streptococcus pneumoniae Antigen (M - Final 06/22/21 21:40 Nasal Secretion SARS-CoV-2 & FLU Antigen (Rapid) - Final D/C Instructions Discharge Diet: No restrictions Call your doctor if you observe: Shortness of breath, Dizziness and Chest pain Meaningful Use Info Meaningful Use Diagnoses (Choose all that apply): None applicable Discharge Plan Admission Admit Date/Time: 06/22/21 23:14 Primary Reason for Your Visit: Pneumonia Attending Provider: [place] Haji Primary Care Provider: Ancelmo Scott Chi Discharge Orders/Prescriptions Prescriptions: New prednisone 20 mg Tablet 40 mg PO BREAKFAST 3 Days Qty: 6 RF: 0 amoxicillin-pot clavulanate 875-125 mg tablet 1 tab PO BID 6 Days Qty: 12 RF: 0 Continued lisinopril 10 mg tablet 10 mg PO QDAY Qty: 90 RF: 3 tamsulosin 0.4 mg capsule 0.8 mg PO DAILY RF: 0 aspirin 81 MG tablet,chewable 81 mg PO DAILY RF: 0 metoprolol succinate [Toprol XL] 25 mg tablet extended release 24 hr 12.5 mg PO DAILY RF: 0 Spiriva Respimat 2.5 mcg/actuation mist 2 puff INHALATION DAILY RF: 0 clopidogrel 75 mg tablet 75 mg PO DAILY Qty: 90 RF: 3 albuterol sulfate 2.5 mg /3 mL (0.083 %) solution for nebulization 2.5 mg INHALATION Q4H PRN PRN (Reason: BREATHING) Qty: 180 RF: 6 Referrals / Follow Up: Ancelmo Scott Chi, MD [Primary Care Provider] - 06/24/21 2:20 pm Nela King NP, AGRICULTURAL ENGINEERING TECHNOLOGIST-C [Nurse Practitioner] - See Referral Note (As scheduled 07/21/21) Disposition Disposition (needs filled in before D/C Order can be placed): Home Health Service Documented by User: Dr. [place] Haji DO 06/24/21 11:49 Providers Date of Admission: 06/22/21 Reason For Visit: sepsis from pneumonia Medications at Discharge Home Medications aspirin 81 mg PO DAILY 07/24/16 tamsulosin 0.4 mg capsule 0.8 mg PO DAILY cap 12/21/18 lisinopril 10 mg tablet 10 mg PO QDAY #90 tab 01/18/19 clopidogrel 75 mg tablet 75 mg PO DAILY #90 tab 02/22/20 albuterol sulfate 2.5 mg INHALATION Q4H PRN PRN #180 ml 02/27/21 metoprolol succinate [Toprol XL] 12.5 mg PO DAILY 06/22/21 Spiriva Respimat 2 puff INHALATION DAILY 06/23/21 amoxicillin-pot clavulanate 1 tab PO BID 6 Days #12 tab 06/24/21 prednisone 40 mg PO BREAKFAST 3 Days #6 tab 06/24/21 Hospital Course Operations None Procedures None Summary of Care Provided Minutes Spent on Discharge: 32 Hospital Course: Patient seen and examined independently. Data and vitals reviewed. I agree with the above note by the nurse practitioner. 1. Sepsis POA qSOFA 2 upon admission resolved 2. Pneumonia Improving continue CTX and azithromycin while inpatient and will transition to amoxicillin/clavulanic acid upon discharge. 3. Acute COPD exacerbation Improving Continue prednisone burst BDs Is on home oxygen at 3 L/min. 4. Severe protein malnutrition complicates care nutrition 5. Dysphagia Chronic Barium swallow today 6. Debility Patient to go home with home health care. Physical Exam Const alert and no apparent distress Resp normal respiratory effort, no retractions, no use of accessory muscles and clear to auscultation bilaterally Cardio regular rate, regular rhythm, S1 normal heart sound and S2 normal heart sound GI normal to inspection, nondistended, normoactive bowel sounds Extremity normal to inspection Neuro Sensorium / Orientation: awake and alert ABG / Lab / Microbiology Data Result Diagrams: 06/24/21 05:45 06/23/21 05:15 Discharge Plan Admission Admit Date/Time: 06/22/21 23:14 Primary Reason for Your Visit: Pneumonia Attending Provider: [place] Haji Primary Care Provider: Ancelmo Scott Chi Discharge Orders/Prescriptions Prescriptions: New prednisone 20 mg Tablet 40 mg PO BREAKFAST 3 Days Qty: 6 RF: 0 amoxicillin-pot clavulanate 875-125 mg tablet 1 tab PO BID 6 Days Qty: 12 RF: 0 Continued lisinopril 10 mg tablet 10 mg PO QDAY Qty: 90 RF: 3 tamsulosin 0.4 mg capsule 0.8 mg PO DAILY RF: 0 aspirin 81 MG tablet,chewable 81 mg PO DAILY RF: 0 metoprolol succinate [Toprol XL] 25 mg tablet extended release 24 hr 12.5 mg PO DAILY RF: 0 Spiriva Respimat 2.5 mcg/actuation mist 2 puff INHALATION DAILY RF: 0 clopidogrel 75 mg tablet 75 mg PO DAILY Qty: 90 RF: 3 albuterol sulfate 2.5 mg /3 mL (0.083 %) solution for nebulization 2.5 mg INHALATION Q4H PRN PRN (Reason: BREATHING) Qty: 180 RF: 6 Referrals / Follow Up: Ancelmo Scott Chi, MD [Primary Care Provider] - 06/24/21 2:20 pm Nela King AGRICULTURAL ENGINEERING TECHNOLOGIST, AGRICULTURAL ENGINEERING TECHNOLOGIST-C [Nurse Practitioner] - See Referral Note (As scheduled 07/21/21) Disposition Disposition (needs filled in before D/C Order can be placed): Home Health Service Charges/Coding Visit Charges Inpatient E&M: 95211 Disch Hosp
--- NOTE | 2021-06-24 11:53 | PHA.DC.MC ---
Pharmacy Service has performed discharge medication reconciliation and counseling for this patient. 1. AUGMENTIN 875MG PO BID X 6 DAYS 2. PREDNISONE 40MG PO DAILY X 3 DAYS The patient's discharge medication list was reviewed for discrepancies and discrepancies were resolved. Home Medications aspirin 81 mg PO DAILY 07/24/16 tamsulosin 0.4 mg capsule 0.8 mg PO DAILY cap 12/21/18 lisinopril 10 mg tablet 10 mg PO QDAY #90 tab 01/18/19 clopidogrel 75 mg tablet 75 mg PO DAILY #90 tab 02/22/20 albuterol sulfate 2.5 mg INHALATION Q4H PRN PRN #180 ml 02/27/21 metoprolol succinate [Toprol XL] 12.5 mg PO DAILY 06/22/21 Spiriva Respimat 2 puff INHALATION DAILY 06/23/21 amoxicillin-pot clavulanate 1 tab PO BID 6 Days #12 tab 06/24/21 prednisone 40 mg PO BREAKFAST 3 Days #6 tab 06/24/21 The patient was counseled on the following discharge medications and changes in medications for homegoing were reviewed. The Reason for Use, instructions for use, and potential side effects were reviewed for all new medications. The patient's questions regarding all of their medications were answered. The patient was able to verbally demonstrate an understanding of their discharge medications.
--- NOTE | 2021-06-24 12:31 | CASEMGMT ---
REJI CM in to pt room, pt and son present at bedside. Pt denies any homegoing questions. He and family are aware of appt with today, that he did not need any increased O2 and that [facility] will be in touch to schedule an appt. Denies further needs.
[2021-06-24 13:16] VITALS: BP 134/52; PULSE 58; RESP 18; TEMP 36.6; O2SAT 100
--- NOTE | 2021-06-24 14:30 | SP.MBSS_ITS ---
Modified Barium Swallow - Patient Information Study Date: 06/24/21 Study Time: 13:45 Direct Billable Minutes: 120 Total Minutes procedure & reportin Diagnosis: Pneumonia (J18.9), COPD exacerbation (J44.1) Referring Physician: [place] Reason for Referral: Objectively assess swallow function, risk for aspiration, and determine recommendations for least restrictive diet textures and compensatory strategies to improve safety of swallow. Medical History: Philip Del Cid is an 85-year-old male who presented to [facility] ED 06/22/2021 with con fusion, chills, and fever. The patient was admitted for management of sepsis secondary to left lower lobe pneumonia. The patient has chronic hypoxic respiratory failure requires 3L O2/min via nasal cannula at baseline secondary to underlying COPD. He was placed on puree textures / thin liquids by hospitalist upon admission. He is edentulous and the patient reports ?things get stuck?. His , Rhonda, stated she has primarily given him blended foods for the past month due to concerns for the patient choking. He has not had any choking episodes at home. During speech therapy session 06/24/2021 he complained of frequent sensation of pharyngeal retention of purees and medications. He also presented with wet vocal quality. Referred for MBS study to assess risk for aspiration due to recent PNA, hx of COPD, and reports of frequent pharyngeal retention when consuming food and medication. PMH significant for CVA, COPD, dysphagia, HTN, [place], squamous cell skin cancer. SEE H&P for full history. Current Diet Ordered: Puree textures / Thin liquids Dentition: Edentulous Mental Status: WNL Respiratory Status: Oxygenating on 3L/M nasal cannula - Penetration-Aspiration Scale Penetration-Aspiration Scale: OBJECTIVE ASSESSMENT OF SWALLOW FUNCTION (QUANTITATIVE ? PER TRIAL): PENETRATION / ASPIRATION SCALE (SORIANO): 1 = does not enter airway 2 = enters airway/above vocal folds/ejected 3 = enters airway/above vocal folds/not ejected 4 = enters airway/contacts vocal folds/ejected 5 = enters airway/contacts vocal folds/not ejected 6 = enters airway/below vocal folds/ejected 7 = enters airway/below vocal folds/not ejected despite effort 8 = enters airway/below vocal folds/no effort VIDEOFLOROSCOPIC SCALE SCORE (SORIANO): Grade I = aspiration of material that has penetrated into the laryngeal vestibule, intact cough reflex Grade II = aspiration < 10 % of the bolus, intact cough reflex Grade III = aspiration of < 10 % of the bolus, reduced cough reflex or aspiration of > 10 % of the bolus, intact cough reflex Grade IV = aspiration of > 10 % of the bolus, reduced cough reflex - Penetration-Aspiration Scale Score Thin Liquid via teaspoon Result: 1= does not enter airway Thin Liquid via teaspoon Trial 2 Result: 1= does not enter airway Thin Liquid via large single sip from cup Result: 5= enters airways/contacts vocal folds/not ejected Thin Liquid via large single sip from cup Trial 2 Result: 3= enters airways/above vocal folds/not ejected [place] Thick Liquid via large single sip from cup Result: 3= enters airways/above vocal folds/not ejected [place] Thick Liquid via small single sip from cup Result: 1= does not enter airway Comment: Penetrated contrast from previous trials on the vocal folds. Pudding via teaspoon Result: 2= enter airway/above vocal folds/ejected Thin Liquid via single sip from straw Result: 2= enter airway/above vocal folds/ejected Thin Liquid via small single sip from cup Result: 1= does not enter airway - Oral Phase Labial Seal: No Labial Escape Tongue Control During Bolus Hold: Posterior escape of less than half of bolus Bolus Preparation/Mastication: Slow prolonged chewing/mashing with complete recollection Bolus Transport/Lingual Motion: Repetitive/disorganized tongue motion Oral Residue: Trace residue lining oral structures - Pharyngeal Phase Initiation of Pharyngeal Swallow: Bolus head in pyriforms Soft Palate Elevation: No bolus between soft palate and pharyngeal wall Laryngeal Elevation: Partial superior movement thyroid cart/partial apprx aryt- epig petiole Anterior Hyoid Excursion: Partial anterior movement Epiglottic Movement: Partial inversion - Inconsistent inversion of epiglottis Laryngeal Vestibule Closure at Height of Swallow: Incomplete; narrow column of air/contrast in laryngeal vestibule Pharyngeal Stripping Wave: Present - diminished Pharyngoesophageal Segment Opening: Parital distension and partial duration; parital obstruction of flow Tongue Base Retraction: Narrow column of contrast between tongue base & post. pharyngeal wall Pharyngeal Residue: Collection of residue within or on pharyngeal structures - Esophageal Phase Esophageal Clearance: Esophageal retention w/ retrograde flow through pharyngoesophageal seg - Treatment Strategies Effects of treatment strategies attemped:: Effortful swallow = effective in clearing some pharyngeal residue from the vallecula. Chin tuck = somewhat effective to clear pharyngeal residue in the vallecula - not tested with liquids. - Diagnosis/Impression Diagnosis: Mild-moderate oropharyngeal phase dysphagia (R13.12) Impression: The oral phase is marked by prolonged mastication due to lack of dentures/teeth. He also presented with lingual pumping for A-P transport of second bite of cookie. Decreased bolus control of thin liquids with loss of bolus to floor of the mouth and posteriorly to the pyriforms with large sips. The pharyngeal phase is marked by decreased airway closure during the swallow and mild pharyngeal residue. He presents with decreased laryngeal elevation, anterior hyoid excursion, and UES opening/duration of opening. He has decreased pharyngeal contraction and inconsistent epiglottic inversion, resulting in residues present in the pyriforms and vallecula after the swallow. He demonstrated laryngeal penetration of large sip sizes of nectar thick and thin liquids above the vocal folds without full ejection from the laryngeal vestibule. No aspiration observed during the study; however, one large sip of thin liquids did penetrate the laryngeal vestibule to the level of the VF withou t ejection. He is at risk to aspirate residue of contrast remaining in the laryngeal vestibule after the swallow. CP bar at the level of C6. SEE image at end of the study in PACS. Retention of contrast evident in upper esophagus. Retrograde flow through UES observed. - Recommendations Diet: Mechanical Soft Textures - Minced and moist textures (IDDSI Level 5), Thin Liquids Comment: Cue cough and re-swallow if wet vocal quality Compensatory Strategies: Small Bites - Utilize effortful swallows with bites, S mall Sips, Slow Rate - Sips one at a time, Multiple Swallows, Sitting upright, Remain sitting upright for 30 minutes after PO intake, Assist with verbal cues to use recommended strategies Supervision: Assist as needed Recommend Repeat Modified Barium Swallow: TBD Need for Skilled Speech Therapy Services: Yes Comment: Will recommend the patient for home health dysphagia therapy to address deficits in oropharyngeal swallow function. Would consider the patient for oropharyngeal strengthening to improve lingual strength/coordination, laryngeal elevation, hyoid excursion, and duration of UES opening. The patient would benefit from thorough education regarding diet recommendations and recommended compensatory strategies. Would consider the patient for diet upgrade to soft and bite size textures (IDDSI Level 6) if completing trials with TRAINS SERVICE CONDUCTOR without concern for aspiration. Recommended Referrals: GI Consult - CP bar at the level of C6. SEE image at end of the study in PACS. Retention of contrast evident in upper esophagus. Retrograde flow through UES observed. Education Completed: 1. Described result of evaluation., 4. Family/caregivers understand evaluation & agree w/ goals & tx plan., 7. Pt requires further education on strategies & risks. - Status Active ST Patient: Active - Contact Information [facility] Speech Therapy:: Randi Staton M.A. CCC-TRAINS SERVICE CONDUCTOR Speech-Language Pathologist [facility] [address] [place] [address] [phone] 06/24/21 14:54
--- NOTE | 2021-06-24 16:10 | CASEMGMT ---
Social Work Note SW received call from Speech Therapist requesting pt's Modified Barium Swallow results be relayed to pt's HHC. SW left message for RN CM updating her of this request. Adali Kessler FILM LOADER, INDUSTRIAL HYGENIST
== END 2021-06-24 14:33 | disposition home health service (06) | DRG 871 ==
LOC: ED 23:10 → MS3 23:37
PROVIDERS: Nurse Practitioner Family; Admitting Provider Family Medicine; Emergency Provider Emergency Medicine; PCP Family Medicine Geriatric Medicine
DX: A41.9 Sepsis, unspecified organism (principal); G93.41 Metabolic encephalopathy; E43 Unspecified severe protein-calorie malnutrition; J18.9 Pneumonia, unspecified organism; J96.11 Chronic respiratory failure with hypoxia; J44.0 Chronic obstructive pulmonary disease with (acute) lower respiratory infection; J44.1 Chronic obstructive pulmonary disease with (acute) exacerbation; Z68.1 Body mass index [BMI] 19.9 or less, adult; Z99.81 Dependence on supplemental oxygen; E78.5 Hyperlipidemia, unspecified; I10 Essential (primary) hypertension; I25.10 Atherosclerotic heart disease of native coronary artery without angina pectoris; N40.0 Benign prostatic hyperplasia without lower urinary tract symptoms; I25.2 Old myocardial infarction; Z79.82 Long term (current) use of aspirin; Z87.891 Personal history of nicotine dependence; Z79.02 Long term (current) use of antithrombotics/antiplatelets; Z79.899 Other long term (current) drug therapy; Z95.2 Presence of prosthetic heart valve
CPT/HCPCS: 36415; 70450; 71045; 74230; 80048; 80053; 81001; 83605; 84484; 85025; 87040; 87070; 87086; 87088; 87205; 87428; 87449; 92526; 92610; 92611; 93005; 97161; 97166; 97802; 99251; 99285; J7030; A4216; G0463; J0696

== ENCOUNTER → 2021-06-24 | Outpatient (CLI) | payer MEDICARE, SELFPAY ==
[2021-06-28 09:57] LABS: SAR-COV-2 IGA ANTIBODY Equivocal (Negative)
== END | disposition home or self-care (01) ==
LOC: POLAB3 15:46
PROVIDERS: PCP Family Medicine Geriatric Medicine; Visit Provider Family Medicine Geriatric Medicine
DX: U07.1 COVID-19 (principal)
CPT/HCPCS: 36415; 86769

== ENCOUNTER → 2021-07-22 | Outpatient (CLI) | payer MEDICARE, SELFPAY ==
[2021-07-22 12:30] LABS: Absolute Lymphocyte Count 2.61 X10^3/uL (0.83-4.51); Absolute Neutrophil Count 3.4 X10^3/uL (2.0-7.7); Basophil# 0.03 X10^3/uL; Basophil% 0.4 % (0-1); Eosinophil# 0.09 X10^3/uL; Eosinophils% 1.3 % (0-5); Hematocrit 36.6 % (40-54); Hemoglobin 11.6 g/dL (13.0-16.5); Lymphocyte # 2.61 X10^3/ul (0.83-4.51); Lymphocyte % 38.3 % (19-41); Mean Corp Hgb Conc 31.7 g/dL (32-36); Mean Corpuscular Hgb 29.6 pg (27.0-32.0); Mean Corpuscular Volume 93.4 fL (80-94); Mean Platelet Vol. 10.9 fl (6.2-12.0); Monocyte# 0.67 X10^3/uL; Monocyte% 9.8 % (0-10); NRBC Flagged by Analyzer 0 % (0-5); Neutrophil # 3.39 X10^3/uL (2.7-7.7); Neutrophil % 49.9 % (47-70); Platelet Count 220 K/mm3 (150-450); RBC Distribution Width CV 13.4 % (11.6-14.6); RBC Distribution Width SD 45.3 fl (35.1-43.9); Red Blood Count 3.92 M/mm3 (4.6-6.2); White Blood Count 6.8 K/mm3 (4.4-11.0)
[2021-07-22 13:07] LABS: Vitamin D,25 Hydroxy 53.5 ng/mL
[2021-07-22 13:19] LABS: ALB/GLOB Ratio 0.8 RATIO (0.9-2.4); AST(SGOT) 13 U/L (15-37); Alanine Aminotransfer ALT/SGPT 20 U/L (16-61); Albumin, Serum 2.8 g/dL (3.2-5.0); Alkaline Phosphatase 90 U/L (45-117); Anion Gap 5 (5-15); BUN 24 mg/dL (7-18); Calcium,Total 10.3 mg/dL (8.5-10.1); Chloride 107 mmol/L (98-107); Cholesterol 199 mg/dL (200); Creatinine, Serum 0.89 mg/dL (0.70-1.30); EST Glomerular Filtration Rate 86 mL/min (>60); Est Glom Filt Rate - Afr Amer 104 mL/min (>60); Globulin 3.7 g/dL (2.2-4.2); Glucose 98 mg/dL (74-106); High Density Lipoprotein 60 mg/dL; Potassium 4.3 mmol/L (3.5-5.1); Protein, Total 6.5 g/dL (6.4-8.2); Sodium Level 141 mmol/L (136-145); Thyroid Stim Hormone (TSH) 2.66 uIU/mL (0.358-3.74); Triglycerides 74 mg/dL; Very Low Density Lipoprotein 15 mg/dL (5-40)
== END | disposition home or self-care (01) ==
LOC: POLAB3 11:50
PROVIDERS: PCP Family Medicine Geriatric Medicine; Visit Provider Family Medicine Geriatric Medicine
DX: E55.9 Vitamin D deficiency, unspecified (principal); E78.5 Hyperlipidemia, unspecified; R53.83 Other fatigue
CPT/HCPCS: 36415; 80053; 80061; 82306; 84443; 85025

== ENCOUNTER 2021-08-26 14:19 | Day surgery (SDC) | payer MEDICARE, SELFPAY ==
[2021-08-26] VITALS (7 sets, daily range): BP systolic 89–143; BP diastolic 46–69; PULSE 42–72; RESP 16–18; TEMP 36.2–36.6; O2SAT 93–99; BMI 13.8
[2021-08-26] MEDS: Lactated Ringers 1,000 ML 15 ML IV (14:55)
--- NOTE | 2021-08-26 15:15 | PCM.HP.BLA ---
History and Physical Date of Admission: 08/26/21 Details: ELODIA PARK, is a 85 M who presents to the office today for food sticking for the past several months.? When he eats he has a very difficult time swallowing solid food.? His is bringing up all his food.? He has to drink a lot of water or orange juice after solid foods.? No nausea or vomiting.? He has not had an ED visit for this.? He has been evaluated by ENT, normal laryngoscopy.? He had an esophagram with barium here at the hospital on 06/02/2021, that was normal.? He notes only rare heartburn.? No abdominal pain.? He tends to be constipated, treats with Colace as needed, he does have prunes and prune juice.? No diarrhea.? No melena or hematochezia. ROS Const Constitutional: Positive for fatigue ENT ENT: Positive for difficulty swallowing Gastro GI: Positive for abdominal pain, constipation and difficulty swallowing; No belching, bloating, change in bowel habits, change in stool character, coffee ground emesis, cramping, diarrhea, heartburn, feeling full early, excessive flatus, incontinent of stools, Vomiting blood/hematemesis, Blood in stool, loose stools, Black,tarry stools, nausea/dyspepsia, pain with swallowing, vomiting or other Musc Musculoskeletal: No joint pain Skin Skin: No yellowing of the eye or itchy eyes Psych Psychiatric: No anxiety and Positive for depression Endo Endocrine: Positive for fatigue Aller/Imm Allergy/Immunologic: No itchy eyes Darryl/Lymp Hematologic/Lymphatic: Positive for easy bleeding and easy bruising Exam Const General: cooperative and comfortable Nutritional Appearance: underweight Other: In wheelchair GI Palpation: soft, no hepatosplenomegaly, no masses and nontender Neuro General: patient alert, patient awake and patient oriented x3 Psych Mood: euthymic mood Affect: normal affect Quality Reporting Tobacco Screening ([facility] 138) Smoking Status: Former smoker Assessment and Plan Assessment and Plan (1) Dysphagia: ?Plan - Nela King MATRIX WORKER, MATRIX WORKER-C: 85 yr old male with dysphagia. We will get him scheduled for EGD next month to see if an esophageal stricture needs dilated or other cause. I have re-examined the patient. There are no clinical changes since date of exam.
--- NOTE | 2021-08-26 15:30 | EGD_PTH ---
PATIENT: ELODIA PARK LOC: EN U#:[id number] AGE/SX: 85/M ROOM: RE08/26/[address]: Dr. Michelet Bernal DO : 1935 BED: DIS: 08/26/2021 SPEC #: [id number] RECD: 08/26/21 18:17 STATUS: VALENCIA TAL #: [id number] ENZO: 08/26/21 15:[address]: Michelet Bernal DEPT: SURGICAL PATHOLOGY RECD BY: Toy Guevara ENTERED: 08/27/21 07:44 SP TYPE: EGD BIOPSY OT DR: Dr. Ancelmo Scott MD Tissues: A - Duodenum, NOS B - Esophagus, NOS Procedures: Special Stain Group II Surgery Specimen Level IV Alcian Blue/PAS (control) HEADER OPERATION: EGD with biopsy and dilation (MAC) PRE-OP DIAGNOSIS: Dysphagia TISSUE SUBMITTED: A ? Duodenum biopsy, B ? Distal esophagus biopsy MICROSCOPIC DIAGNOSIS A. Duodenum, biopsy: Fragments of duodenal mucosa, no pathologic diagnosis. B. Distal esophagus, biopsy: Fragments of gastric mucosa with mild chronic inflammation. Intestinal metaplasia (goblet cell metaplasia) not identified. See comment. VALENTINE:cristina 08/28/2021 COMMENT B. Alcian blue/PAS stain with matched control is used in the evaluation of the specimen. MICROSCOPIC DESCRIPTION Slides are reviewed. GROSS DESCRIPTION A - Received in fixative is one container labeled with the patient's name and designated duodenum biopsy. The specimen consists of multiple irregular fragments of light tavares soft tissue that in aggregate measure 1 x 0.3 x 0.1 cm. The specimen is totally submitted in one cassette. B - Received in fixative is one container labeled with the patient's name and designated biopsy distal esophagus. The specimen consists of two irregular fragments of light tavares soft tissue that in aggregate measure 0.6 x 0.5 x 0.1 cm. The specimen is totally submitted in one cassette. / VALENTINE:cristina 08/27/2021 TC:3 CPT: 07221 x2, 80989
--- NOTE | 2021-08-26 15:46 | OP.EGD_ITS ---
Patient Name: Philip Del Cid Procedure Date: 08/26/2021 3:14 PM Date of : 1935 Age: 85 Procedure: Upper GI endoscopy Indications: Dysphagia Providers: Michelet Bernal DO Medicines: Monitored Anesthesia Care Patient Profile: This is an 85 year old male. Refer to note in patient chart for documentation of history and physical. Patient has symptoms of dysphagia with both liquids and solids. Complications: No immediate complications. Procedure: Pre-Anesthesia Assessment: - Prior to the procedure, a History and Physical was performed, and patient medications and allergies were reviewed. The patient is competent. The risks and benefits of the procedure and the sedation options and risks were discussed with the patient. All questions were answered and informed consent was obtained. Patient identification and proposed procedure were verified by the physician in the pre-procedure area. Mental Status Examination: alert and oriented. Airway Examination: normal oropharyngeal airway and neck mobility. Respiratory Examination: clear to auscultation. CV Examination: normal. Prophylactic Antibiotics: The patient does not require prophylactic antibiotics. Prior Anticoagulants: The patient has taken no previous anticoagulant or antiplatelet agents. ASA Grade Assessment: II - A patient with mild systemic disease. After reviewing the risks and benefits, the patient was deemed in satisfactory condition to undergo the procedure. The anesthesia plan was to use moderate sedation / analgesia (conscious sedation). Immediately prior to administration of medications, the patient was re-assessed for adequacy to receive sedatives. The heart rate, respiratory rate, oxygen saturations, blood pressure, adequacy of pulmonary ventilation, and response to care were monitored throughout the procedure. The physical status of the patient was re-assessed after the procedure. After obtaining informed consent, the endoscope was passed under direct vision. Throughout the procedure, the patient's blood pressure, pulse, and oxygen saturations were monitored continuously. The gastroscope was introduced through the mouth, and advanced to the second part of duodenum. The upper GI endoscopy was accomplished without difficulty. The patient tolerated the procedure well. Scope In: 3:30:57 PM Scope Out: 3:40:10 PM Total Procedure Duration Time 0 hours 9 minutes 13 seconds Findings: A moderate Schatzki ring was found in the lower third of the esophagus. A guidewire was placed and the scope was withdrawn. Dilation was performed with a Savary dilator with no resistance at 51 Fr. The dilation site was examined following endoscope reinsertion and showed mild improvement in luminal narrowing. Estimated blood loss was minimal. LA Grade A (one or more mucosal breaks less than 5 mm, not extending between tops of 2 mucosal folds) esophagitis with no bleeding was found 37 to 38 cm from the incisors. Biopsies were taken with a cold forceps for histology. Verification of patient identification for the specimen was done. Estimated blood loss was minimal. The entire examined stomach was normal. The second portion of the duodenum was normal. Biopsies were taken with a cold forceps for histology. Verification of patient identification for the specimen was done. Estimated blood loss was minimal. Impression: - Moderate Schatzki ring. Dilated. - LA Grade A reflux esophagitis. Biopsied. - Normal stomach. - Normal second portion of the duodenum. Biopsied. Recommendation: - Discharge patient to home. - Resume previous diet. - Continue present medications. - Await pathology results. Procedure Code(s): --- Professional --- 07734, Esophagogastroduodenoscopy, flexible, transoral; with insertion of guide wire followed by passage of dilator(s) through esophagus over guide wire 80499, 59,51, Esophagogastroduodenoscopy, flexible, transoral; with biopsy, single or multiple CPT copyright 2017 [employer]. All rights reserved. The codes documented in this report are preliminary and upon engineering and operations director review may be revised to meet current compliance requirements. Michelet Bernal DO 08/26/2021 3:45:30 PM This report has been signed electronically. Number of Addenda: 1 Note Initiated On: 08/26/2021 3:14 PM Addendum Number: 1 Addendum Date: 12/02/2021 6:04:08 AM MAC was used as sedation for this procedure. Michelet Bernal DO 12/02/2021 6:04:15 AM This report has been signed electronically.
--- NOTE | 2021-08-26 15:47 | OP.CCLET_ITS ---
12/02/2021 Ancelmo Scott MD [address] [place] [address] Re : Upper GI endoscopy procedure for Philip Del Cid Dear Dr. Scott This procedure was performed on Thursday, August 26, 2021. My impressions and recommendations are as follows: Impressions : - Moderate Schatzki ring. Dilated. - LA Grade A reflux esophagitis. Biopsied. - Normal stomach. - Normal second portion of the duodenum. Biopsied. Recommendations : - Discharge patient to home. - Resume previous diet. - Continue present medications. - Await pathology results. My findings are described in the full procedure note, which is enclosed. If I can be of further assistance, please feel free to contact me at . Sincerely, Michelet Bernal, 08/26/2021 3:45:30 PM This report has been signed electronically.
== END 2021-08-26 16:50 | disposition home or self-care (01) ==
LOC: EN 14:23 → AC 14:27
PROVIDERS: PCP Family Medicine Geriatric Medicine; Referring Provider Family Medicine Geriatric Medicine; Visit Provider Internal Medicine Gastroenterology
PROC: 0DJ08ZZ Inspection of Upper Intestinal Tract, Via Natural or Artificial Opening Endoscopic (ICD-10-PCS; CPT 43235; principal; 2021-08-26 15:25)
DX: K20.90 Esophagitis, unspecified without bleeding (principal); J44.9 Chronic obstructive pulmonary disease, unspecified; K22.2 Esophageal obstruction; I25.2 Old myocardial infarction; I25.10 Atherosclerotic heart disease of native coronary artery without angina pectoris; I10 Essential (primary) hypertension; Z99.81 Dependence on supplemental oxygen; Z86.73 Personal history of transient ischemic attack (TIA), and cerebral infarction without residual deficits; Z79.82 Long term (current) use of aspirin; Z79.899 Other long term (current) drug therapy; Z87.891 Personal history of nicotine dependence; Z95.1 Presence of aortocoronary bypass graft
CPT/HCPCS: 43248; 43239; 88305; 88313; J7120; C1769; J2405

== ENCOUNTER → 2022-02-03 | Outpatient (CLI) | payer MEDICARE, SELFPAY ==
[2022-02-03 13:14] LABS: Absolute Lymphocyte Count 2.89 X10^3/uL (0.83-4.51); Absolute Neutrophil Count 4.5 X10^3/uL (2.0-7.7); Basophil# 0.03 X10^3/uL; Basophil% 0.4 % (0-1); Eosinophil# 0.06 X10^3/uL; Eosinophils% 0.7 % (0-5); Hematocrit 37.1 % (40-54); Hemoglobin 11.2 g/dL (13.0-16.5); Lymphocyte # 2.89 X10^3/ul (0.83-4.51); Lymphocyte % 34.5 % (19-41); Mean Corp Hgb Conc 30.2 g/dL (32-36); Mean Corpuscular Volume 92.8 fL (80-94); Mean Platelet Vol. 10.7 fl (6.2-12.0); Monocyte# 0.81 X10^3/uL; Monocyte% 9.7 % (0-10); NRBC Flagged by Analyzer 0 % (0-5); Neutrophil # 4.54 X10^3/uL (2.7-7.7); Neutrophil % 54.1 % (47-70); Platelet Count 235 K/mm3 (150-450); RBC Distribution Width CV 14.4 % (11.6-14.6); White Blood Count 8.4 K/mm3 (4.4-11.0)
[2022-02-03 13:28] LABS: Vitamin D,25 Hydroxy 41.1 ng/mL
[2022-02-03 13:46] LABS: ALB/GLOB Ratio 0.6 RATIO (0.9-2.4); AST(SGOT) 12 U/L (15-37); Alanine Aminotransfer ALT/SGPT 17 U/L (16-61); Albumin, Serum 2.9 g/dL (3.2-5.0); Alkaline Phosphatase 104 U/L (45-117); Anion Gap 2 (5-15); BUN 22 mg/dL (7-18); BUN/Creat Ratio 22.7 RATIO (10-20); Calcium,Total 10.2 mg/dL (8.5-10.1); Chloride 109 mmol/L (98-107); Cholesterol 146 mg/dL (200); Creatinine, Serum 0.97 mg/dL (0.70-1.30); EST Glomerular Filtration Rate 78 mL/min (>60); Est Glom Filt Rate - Afr Amer 94 mL/min (>60); Globulin 4.5 g/dL (2.2-4.2); Glucose 106 mg/dL (74-106); High Density Lipoprotein 54 mg/dL; Potassium 3.4 mmol/L (3.5-5.1); Protein, Total 7.4 g/dL (6.4-8.2); Sodium Level 144 mmol/L (136-145); Thyroid Stim Hormone (TSH) 2.44 uIU/mL (0.358-3.74); Triglycerides 68 mg/dL; Very Low Density Lipoprotein 14 mg/dL (5-40)
== END | disposition home or self-care (01) ==
LOC: POLAB3 10:10
PROVIDERS: PCP Family Medicine Geriatric Medicine; Visit Provider Family Medicine Geriatric Medicine
DX: R53.83 Other fatigue (principal); E55.9 Vitamin D deficiency, unspecified; E78.5 Hyperlipidemia, unspecified
CPT/HCPCS: 36415; 80053; 80061; 82306; 84443; 85025

== ENCOUNTER 2022-03-18 09:09 | Day surgery (SDC) | payer MEDICARE, SELFPAY ==
--- NOTE | 2022-03-18 | ESO_PTH ---
PATIENT: ELODIA PARK LOC: DAREN U#:[id number] AGE/SX: 86/M ROOM: RE03/18/[address]: Dr. Michelet Bernal DO : 1935 BED: DIS: 03/18/2022 SPEC #: [id number] RECD: 03/18/22 13:09 STATUS: VALENCIA TAL #: [id number] ENZO: 03/18/22 00:[address]: Michelet Bernal DEPT: SURGICAL PATHOLOGY RECD BY: Fer Merida ENTERED: 03/18/22 13:09 SP TYPE: ARIANNA CAIN DR: Dr. Ancelmo Scott MD Tissues: Esophagus, NOS Procedures: Special Stain Group II Surgery Specimen Level IV Alcian Blue/PAS (control) HEADER OPERATION: [place] [place] with dilation PRE-OP DIAGNOSIS: Dysphagia, underweight TISSUE SUBMITTED: Distal esophagus biopsy MICROSCOPIC DIAGNOSIS Distal esophagus, biopsy: Fragments of gastroesophageal mucosa with chronic inflammation. Intestinal metaplasia (goblet cell metaplasia) not identified. See comment. SJ:cristina 03/19/2022 COMMENT Alcian blue/PAS stain with matched control is used in the evaluation of the specimen. MICROSCOPIC DESCRIPTION Slides are reviewed. GROSS DESCRIPTION Received in fixative is one container labeled with the patient's name and designated distal esophagus. The specimen consists of two irregular fragments of light tavares soft tissue that in aggregate measure 0.7 x 0.5 x 0.1 cm. The specimen is totally submitted in one cassette. / AM:cristina 03/18/2022 TC:3 CPT: 04086, 23671
[2022-03-18 09:26] VITALS: BP 115/83; PULSE 75; RESP 18; TEMP 36.8; O2SAT 93; BMI 14.2
--- NOTE | 2022-03-18 09:26 | HP.PCM_ITS ---
History and Physical Date of Admission: 03/18/22 86 M who presents to the office today for f/u dysphagia. Since his last appt with us on 09/09/21 he has gained 9 lbs. He got dentures which helps him eat. He loves [employer]s filet o fish. Able to eat better, not having as much dysphagia. Still finds it difficult for some foods to pass mid esophagus, eg ground beef. At last appt he had requested PEG tube in order to supplement his diet since he was losing weight; they then cancelled appt for PEG placement since he started to eat better. 07/2021 EGD was performed because of difficulty swallowing solid foods.? Patient had reported that for several months he was having difficulty swallowing solid foods and pills.? He has to drink a lot of fluids with his food.? No emergency visits for food getting stuck.? He has been evaluated by ENT, normal laryngoscopy.? He had a normal esophagram with barium on 06/02/2021.? He had MBSS 06/24/21: Mild-moderate oropharyngeal phase dysphagia. Rare heartburn.? No abdominal pain.? He uses prunes, prune juice and Colace for constipation.? Dr. Bernal found a moderate Schatzki ring on EGD in the distal esophagus which he dilated to 51 Fr. ROS Const Constitutional: No fatigue ENT ENT: Positive for difficulty swallowing Gastro GI: Positive for difficulty swallowing; No abdominal pain, belching, bloating, change in bowel habits, change in stool character, coffee ground emesis, constipation, cramping, diarrhea, heartburn, feeling full early, excessive flatus, incontinent of stools, Vomiting blood/hematemesis, Blood in stool, loose stools, Black,tarry stools, nausea/dyspepsia, pain with swallowing, vomiting or other Musc Musculoskeletal: Positive for restless legs; No joint pain Skin Skin: No yellowing of the eye or itchy eyes Neuro Neurology: Positive for restless legs Psych Psychiatric: Positive for anxiety and Positive for depression Endo Endocrine: No fatigue Aller/Imm Allergy/Immunologic: No itchy eyes Darryl/Lymp Hematologic/Lymphatic: No easy bleeding or easy bruising Exam Const General: cooperative, comfortable and no acute distress Nutritional Appearance: thin Orientation: alert, awake and oriented x3 Quality Reporting Tobacco Screening ([facility] 138) Smoking Status: Former smoker Assessment and Plan Assessment and Plan (1) Dysphagia: ?Status:?Acute ?Plan: 86 yr old male with dysphagia; doing better since having Schatzki ring dilated in 07/2021, and since getting new dentures. He has gained 9 lbs since August. He will start pantoprazole 40 mg QAM. We will schedule him for EGD so Dr Dolores can further dilate the Schatzki ring. (2) Underweight: ?Status:?Acute ?Plan: as above ? ? ? Medications: New pantoprazole 40 mg? PO QAM 90 tabs 3RF ? ? I have examined the patient and the H&P has been reviewed. There are no clinical changes since date of exam.
[2022-03-18] MEDS: Lactated Ringers 1,000 ML 15 ML IV (09:33)
[2022-03-18 10:19] VITALS: BP 107/59; BP 115/83; PULSE 64; RESP 16; TEMP 37; O2SAT 98
--- NOTE | 2022-03-18 10:21 | OP.EGD_ITS ---
Patient Name: Philip Del Cid Procedure Date: 03/18/2022 9:58 AM Date of : 1935 Age: 86 Procedure: Upper GI endoscopy Indications: Dysphagia Providers: Michelet Bernal DO Medicines: Monitored Anesthesia Care Patient Profile: This is an 86 year old male. Refer to note in patient chart for documentation of history and physical. Patient has symptoms of dysphagia with solids. Complications: No immediate complications. Procedure: Pre-Anesthesia Assessment: - Prior to the procedure, a History and Physical was performed, and patient medications and allergies were reviewed. The risks and benefits of the procedure and the sedation options and risks were discussed with the patient. All questions were answered and informed consent was obtained. Patient identification and proposed procedure were verified by the physician. Mental Status Examination: alert and oriented. Airway Examination: normal oropharyngeal airway and neck mobility. Respiratory Examination: clear to auscultation. CV Examination: normal. Prophylactic Antibiotics: The patient does not require prophylactic antibiotics. Prior Anticoagulants: The patient has taken no previous anticoagulant or antiplatelet agents. After reviewing the risks and benefits, the patient was deemed in satisfactory condition to undergo the procedure. The anesthesia plan was to use monitored anesthesia care (MAC). Immediately prior to administration of medications, the patient was re-assessed for adequacy to receive sedatives. The heart rate, respiratory rate, oxygen saturations, blood pressure, adequacy of pulmonary ventilation, and response to care were monitored throughout the procedure. The physical status of the patient was re-assessed after the procedure. After obtaining informed consent, the endoscope was passed under direct vision. Throughout the procedure, the patient's blood pressure, pulse, and oxygen saturations were monitored continuously. The gastroscope was introduced through the mouth, and advanced to the second part of duodenum. The upper GI endoscopy was accomplished without difficulty. The patient tolerated the procedure well. Scope In: 10:10:18 AM Scope Out: 10:14:11 AM Total Procedure Duration Time 0 hours 3 minutes 53 seconds Findings: A non-bleeding diverticulum with a small opening and no stigmata of recent bleeding was found at the cricopharyngeus. The mid esophagus was significantly tortuous. A moderate Schatzki ring was found in the lower third of the esophagus. A guidewire was placed and the scope was withdrawn. Dilation was performed with a Savary dilator with no resistance at 45 Fr. The dilation site was examined and showed moderate improvement in luminal narrowing. The Z-line was irregular and was found 36 cm from the incisors. Biopsies were taken with a cold forceps for histology. Verification of patient identification for the specimen was done. Estimated blood loss was minimal. A small hiatal hernia was present. No gross lesions were noted in the entire examined stomach. No gross lesions were noted in the second portion of the duodenum. 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 - Tortuous esophagus. - Moderate Schatzki ring. Dilated. - Z-line irregular, 36 cm from the incisors. Biopsied. - Small hiatal hernia. - No gross lesions in the stomach. - No gross lesions in the second portion of the duodenum. Recommendation: - Discharge patient to home. - Resume previous diet. - Continue present medications. - Await pathology results. Procedure Code(s): --- Professional --- 92843, Esophagogastroduodenoscopy, flexible, transoral; with insertion of guide wire followed by passage of dilator(s) through esophagus over guide wire 47704, 59,51, Esophagogastroduodenoscopy, flexible, transoral; with biopsy, single or multiple CPT copyright 2017 [employer]. All rights reserved. The codes documented in this report are preliminary and upon commercial housekeeper review may be revised to meet current compliance requirements. Michelet Bernal DO 03/18/2022 10:21:26 AM This report has been signed electronically. Number of Addenda: 0 Note Initiated On: 03/18/2022 9:58 AM
--- NOTE | 2022-03-18 10:22 | OP.CCLET_ITS ---
03/18/2022 Ancelmo Scott MD [address] [place] [address] Re : Upper GI endoscopy procedure for Philip Del Cid Dear Dr. Scott This procedure was performed on Friday, March 18, 2022. 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 - Tortuous esophagus. - Moderate Schatzki ring. Dilated. - Z-line irregular, 36 cm from the incisors. Biopsied. - Small hiatal hernia. - No gross lesions in the stomach. - No gross lesions in the second portion of the duodenum. Recommendations : - Discharge patient to home. - Resume previous diet. - Continue present medications. - Await pathology results. My findings are described in the full procedure note, which is enclosed. If I can be of further assistance, please feel free to contact me at . Sincerely, Michelet Bernal, 03/18/2022 10:21:26 AM This report has been signed electronically.
[2022-03-18 10:25] VITALS: BP 115/83; BP 138/55; PULSE 66; RESP 16; O2SAT 100
[2022-03-18 10:30] VITALS: BP 106/61; BP 115/83; PULSE 69; RESP 16; O2SAT 100
[2022-03-18 10:36] VITALS: BP 101/60; BP 115/83; PULSE 62; RESP 16; TEMP 36.4; O2SAT 100
[2022-03-18 10:48] VITALS: BP 115/83
== END 2022-03-18 11:00 | disposition home or self-care (01) ==
LOC: EN 09:10 → AC 09:12
PROVIDERS: PCP Family Medicine Geriatric Medicine; Referring Provider Family Medicine Geriatric Medicine; Visit Provider Internal Medicine Gastroenterology
PROC: 0DJ08ZZ Inspection of Upper Intestinal Tract, Via Natural or Artificial Opening Endoscopic (ICD-10-PCS; CPT 43235; principal; 2022-03-18 10:25)
DX: K22.5 Diverticulum of esophagus, acquired (principal); K22.2 Esophageal obstruction; K21.00 Gastro-esophageal reflux disease with esophagitis, without bleeding; R13.12 Dysphagia, oropharyngeal phase; R63.6 Underweight; Z68.1 Body mass index [BMI] 19.9 or less, adult; K44.9 Diaphragmatic hernia without obstruction or gangrene; Z79.82 Long term (current) use of aspirin; Z79.899 Other long term (current) drug therapy; Z87.891 Personal history of nicotine dependence
CPT/HCPCS: 43239; 43248; 88305; 88313; J7120; J2405

== ENCOUNTER 2022-04-21 08:10 | Inpatient (IN) | payer MEDICARE, SELFPAY ==
[2022-04-21] VITALS (14 sets, daily range): BP systolic 90–140; BP diastolic 44–71; PULSE 54–94; RESP 15–30; TEMP 36.6–39.4; O2SAT 93–100; BMI 14.1; BMI 14.5
--- NOTE | 2022-04-21 08:26 | EKG12_ITS ---
Test Reason : CP Blood Pressure : / mmHG Vent. Rate : 067 BPM Atrial Rate : 067 BPM P-R Int : 198 ms QRS Dur : 096 ms QT Int : 420 ms P-R-T Axes : 088 097 087 degrees QTc Int : 443 ms Normal sinus rhythm with sinus arrhythmia Rightward axis Low voltage QRS Cannot rule out Anteroseptal infarct , age undetermined Abnormal ECG Confirmed by IRAIDA GONZALES, JAE ([id number]), avid editor MARQUEZ RITTER ([id number]) on 04/22/2022 8:51:41 AM Referred By: KIMMY Confirmed By:JAE KHOURY MD
--- NOTE | 2022-04-21 08:27 | EDS_ITS ---
HPI History of Present Illness Chief Complaint: Fever Informant: patient, spouse/S.O. and EMS Narrative Narrative: Patient presents via EMS secondary to fever. states that the patient was complaining of being cold last night. She checked his temperature and it was 99. This morning when she checked it it was 101 and she called EMS. She states when EMS checked it was 103. He was not given Tylenol or ibuprofen. On arrival to the emergency room his temperature is 99 orally. Patient denies any complaint, but is confused. states that he has a chronic cough that is unchanged from baseline. He wears 2 to 3 L of oxygen at baseline. He has never had UTIs. He has had no vomiting or diarrhea. He has no wounds or rashes that she is aware of. 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 COPD (chronic obstructive pulmonary disease) COPD (chronic obstructive pulmonary disease) Delirium due to another medical condition Difficulty swallowing Dysphagia Dyspnea Emphysema, unspecified Essential (primary) hypertension Former smoker Heartburn History of steroid therapy Hyperlipidemia Loss of hearing Macular degeneration Multiple premature ventricular complexes Myocardial infarct Non-rheumatic aortic stenosis Old inferior wall myocardial infarction On home oxygen therapy Poor vision Pulmonary cachexia due to COPD Restless legs RLS (restless legs syndrome) Shortness of breath on exertion Squamous cell skin cancer Stage 3 severe COPD by GOLD classification Stroke/cerebrovascular accident Underweight Uses wheelchair Wears dentures Home Medications aspirin 81 mg chewable tablet 81 mg PO DAILY HEART HEALTH 07/24/16 [History Last Taken 03/14/22] tamsulosin 0.4 mg capsule 0.8 mg PO DAILY BPH 12/21/18 [History Last Taken 03/17/22] clopidogrel 75 mg tablet 75 mg PO DAILY #90 tabs 02/22/20 [Rx Last Taken 03/14/22] albuterol sulfate 2.5 mg/3 mL (0.083 %) solution for nebulization 2.5 mg (3 mL) inhalation Q4H PRN PRN BREATHING #180 mL 02/27/21 [Rx Last Taken 03/18/22] metoprolol succinate 25 mg tablet,extended release 24 hr (Toprol XL) 12.5 mg PO QHS BLOO PRESSURE 06/22/21 [History Last Taken 03/17/22] tiotropium bromide 2.5 mcg/actuation mist for inhalation (Spiriva Respimat) 2 puff inhalation DAILY breathing 06/23/21 [History Last Taken 03/17/22] lisinopril 10 mg tablet 10 mg PO QHS 03/16/22 [History Last Taken 03/17/22] prednisone 20 mg tablet 40 mg PO QHS 03/16/22 [History Last Taken 03/17/22] pantoprazole 40 mg tablet,delayed release 40 mg PO QAM #90 tabs 04/08/22 [Rx Last Taken Unknown] Allergy/AdvReac Type Severity Reaction Status Date / Time No Known Allergies Allergy Verified 04/21/22 08:12 Family History Mother CVA (cerebral vascular accident) Brother Myocardial infarction age 50 Surgical History H/O coronary artery bypass surgery (10/24/02) History of aortic valve replacement with tissue graft (10/24/02) History of coronary artery stent placement (1997) History of heart surgery Hx of lithotripsy Social History Smoking Status: Former smoker Tobacco: How many years used: 50 how long ago did patient quit smokin, 1ppd second hand exposure: Yes ROS ROS ED Constitutional Constitutional ED: Reports fever(s); Denies chills Eyes Eyes: Denies discharge from eye(s) ENT ENT ED: Denies discharge from eye(s), rhinorrhea or sore throat Cardiovascular Cardiovascular: Denies chest pain or palpitations Respiratory/Chest Respiratory/Chest: Reports cough Gastrointestinal Gastrointestinal: Denies abdominal pain, diarrhea, nausea or vomiting Genitourinary Genitourinary ED: Denies dysuria Musculoskeletal Musculoskeletal: Denies back pain or extremity pain Integumentary Denies Abrasions or rash Neurologic Neurologic: Reports weakness Allergic/Immunologic Allergic/Immunologic ED: Denies lip swelling or urticaria EXAM Physical Exam Const Vital Signs: 04/21/22 08:12 04/21/22 08:16 04/21/22 08:16 Temperature 99 F 99 F Temperature Source Oral Oral Pulse Rate 70 71 Respiratory Rate 30 H 29 H Respiratory Effort Non-Labored Short of Breath Respiratory Pattern Normal Blood Pressure 106/53 L 106/53 L Blood Pressure Mean 70 70 Pulse Ox 96 100 Oxygen Delivery Method Nasal Cannula Nasal Cannula Oxygen Flow Rate (L/min) 2 Fraction of Inspired Oxygen (FIO2) 2 04/21/22 08:36 04/21/22 09:28 04/21/22 09:30 Temperature 98.8 F Temperature Source Oral Pulse Rate 66 63 Respiratory Rate 22 H 20 H Respiratory Effort Respiratory Pattern Blood Pressure 130/50 H 130/50 H Blood Pressure Mean 76 76 Pulse Ox 93 100 Oxygen Delivery Method Nasal Cannula Room Air Nasal Cannula Oxygen Flow Rate (L/min) 2 2 Fraction of Inspired Oxygen (FIO2) 04/21/22 10:17 04/21/22 10:29 Temperature Temperature Source Pulse Rate 62 58 L Respiratory Rate 22 H 20 H Respiratory Effort Respiratory Pattern Blood Pressure 93/44 L 91/49 L Blood Pressure Mean 60 63 Pulse Ox 100 100 Oxygen Delivery Method Nasal Cannula Nasal Cannula Oxygen Flow Rate (L/min) 2 Fraction of Inspired Oxygen (FIO2) Positive cachectic General Appearance ED: cachectic Nutritional Appearance: cachectic HEENT Reports normocephalic and head/scalp atraumatic Eyes PERRL and EOMs intact bilaterally Neck supple Chest Wall inspection of chest normal and palpation of chest normal Resp normal respiratory effort and clear to auscultation bilaterally Cardio regular rate and regular rhythm GI non-tender Auscultation: hypoactive bowel sounds Palpation: soft Extremity normal to inspection Neuro Neuro Narrative: Patient is alert and pleasantly confused. He denies complaint. He moves all 4 extremities. Sensorium / Orientation: alert Psych mental status grossly normal Skin no rashes or lesions noted MDM MDM MDM Narrative Medical decision making narrative: Patient placed on quality assurance monitor. Sepsis work-up initiated including lab work to evaluate for leukocytosis, electrolyte derangement. Chest x-ray obtained to evaluate for pneumonia. Urinalysis obtained to evaluate for urinary infection. Blood and urine cultures obtained. Patient was given Tylenol along with IV fluids. Lab Data Attestation: I reviewed the patient's lab results. Labs: Laboratory Results - last 24 hr 04/21/22 04/21/22 04/21/22 08:15 08:15 08:15 WBC 10.2 RBC 3.61 L Hgb 10.4 L Hct 32.8 L MCV 90.9 MCH 28.8 MCHC 31.7 L RDW Std Deviation 45.4 H RDW Coeff of Kaity 13.5 Plt Count 193 MPV 10.8 Immature Gran % (Auto) 0.400 Neut % (Auto) 71.8 H Lymph % (Auto) 15.5 L [place] % (Auto) 12.2 H Eos % (Auto) 0.0 Baso % (Auto) 0.1 Absolute Neuts (auto) 7.3 Absolute Lymphs (auto) 1.58 Nucleated RBC % 0 PT 14.8 INR 1.2 APTT 31.2 Sodium 137 Potassium 3.9 Chloride 102 Carbon Dioxide 30.0 Anion Gap 5 BUN 20 H Creatinine 1.27 Estim Creat Clear Calc 27.42 Est GFR (MDRD) Af Amer 69 Est GFR (MDRD) Non-Af 57 L BUN/Creatinine Ratio 15.7 Glucose 108 H Lactic Acid Calcium 9.6 Total Bilirubin 0.60 AST 11 L ALT 11 L Alkaline Phosphatase 97 Total Protein 6.7 Albumin 2.5 L Globulin 4.2 Albumin/Globulin Ratio 0.6 L Urine Color Urine Clarity Urine pH Ur Specific Premier Urine Protein Urine Glucose (UA) Urine Ketones Urine Occult Blood Urine Nitrite Urine Bilirubin Urine Urobilinogen Ur Leukocyte Esterase Urine RBC Urine WBC Ur Squamous Epith Cells Urine Bacteria Urine Mucus 04/21/22 04/21/22 08:15 10:20 WBC RBC Hgb Hct MCV MCH MCHC RDW Std Deviation RDW Coeff of Kaity Plt Count MPV Immature Gran % (Auto) Neut % (Auto) Lymph % (Auto) [place] % (Auto) Eos % (Auto) Baso % (Auto) Absolute Neuts (auto) Absolute Lymphs (auto) Nucleated RBC % PT INR APTT Sodium Potassium Chloride Carbon Dioxide Anion Gap BUN Creatinine Estim Creat Clear Calc Est GFR (MDRD) Af Amer Est GFR (MDRD) Non-Af BUN/Creatinine Ratio Glucose Lactic Acid 2.0 Calcium Total Bilirubin AST ALT Alkaline Phosphatase Total Protein Albumin Globulin Albumin/Globulin Ratio Urine Color Yellow Urine Clarity Sl. Cloudy Urine pH 7.0 Ur Specific Premier 1.005 Urine Protein 15 H Urine Glucose (UA) Normal Urine Ketones Negative Urine Occult Blood 25 H Urine Nitrite Negative Urine Bilirubin Negative Urine Urobilinogen 1 H Ur Leukocyte Esterase 500 H Urine RBC 0-5 SEEN Urine WBC 25-50 SEEN Ur Squamous Epith Cells 0-5 SEEN Urine Bacteria 1+ Urine Mucus 0 SEEN Radiography Chest X-Ray - ED: 1 View, Read by ED Physician and Chronic Changes Diagnostic Testing: Clinical Impression(s) from Imaging Studies Chest X-Ray 04/21/22 09:11 IMPRESSION: Hyperinflation and changes compatible with COPD. There has been no change. Stable scarring in the right lung apex. Increased markings at the left lung base suggestive of atelectasis and/or early infiltrate with blunting of the left costophrenic angle. Electronically Signed: Amauri Elizalde MD at 9:54 EST , EKG Initial EKG: Attestation: I personally reviewed and interpreted this EKG as follows: Interpretation: Sinus Rhythm (Sinus at 67 with no acute ischemia.) Treatment and Re-Evaluation Narrative: CBC reveals normal white count with 72% neutrophils. Coags unremarkable. Chemistry studies reveal a BUN of 20 and a creatinine 1.27. This appears to be near the patient's baseline. Lactic acid is 2.0. Urinalysis reveals 1+ bacteria with 25-50 white cells and 500 leukocyte esterase. Portable chest x- ray per my interpretation reveals chronic changes with COPD and scarring. No focal infiltrate. Radiology interpretation is reviewed. EKG reveals no acute ischemia. Patient has been given a dose of IV Rocephin. Patient's blood pressure did drop into the 90s systolic. He is treated with IV fluids. states that his blood pressure tends to run low but she does not know numbers. On review of prior visits it appears that his systolic pressure is usually in the 90s or 100- 110 range. I will speak with hospitalist regarding admission. Discharge Plan Dx/Rx/DC Orders Clinical Impression: Urinary tract infection, Confusion Disposition Disposition: Acute Care [facility]
[2022-04-21] MEDS: 0.9% Normal Saline 1,000 ML 150 ML IV ×3 (08:52→19:42)
[2022-04-21] MEDS: Acetaminophen 650 MG/20 ML UDC PO (08:53)
[2022-04-21 08:59] LABS: Absolute Lymphocyte Count 1.58 X10^3/uL (0.83-4.51); Absolute Neutrophil Count 7.3 X10^3/uL (2.0-7.7); Basophil# 0.01 X10^3/uL; Basophil% 0.1 % (0-1); Hematocrit 32.8 % (40-54); Hemoglobin 10.4 g/dL (13.0-16.5); Lymphocyte # 1.58 X10^3/ul (0.83-4.51); Lymphocyte % 15.5 % (19-41); Mean Corp Hgb Conc 31.7 g/dL (32-36); Mean Corpuscular Hgb 28.8 pg (27.0-32.0); Mean Corpuscular Volume 90.9 fL (80-94); Mean Platelet Vol. 10.8 fl (6.2-12.0); Monocyte# 1.25 X10^3/uL; Monocyte% 12.2 % (0-10); NRBC Flagged by Analyzer 0 % (0-5); Neutrophil # 7.33 X10^3/uL (2.7-7.7); Neutrophil % 71.8 % (47-70); Platelet Count 193 K/mm3 (150-450); RBC Distribution Width CV 13.5 % (11.6-14.6); RBC Distribution Width SD 45.4 fl (35.1-43.9); Red Blood Count 3.61 M/mm3 (4.6-6.2); White Blood Count 10.2 K/mm3 (4.4-11.0)
[2022-04-21 09:07] LABS: International Normalized Ratio 1.2; Prothrombin Time (Protime)PT. 14.8 SECONDS (11.7-14.9)
[2022-04-21 09:08] LABS: Partial Thromboplast Time 31.2 Seconds (24.1-36.2)
--- NOTE | 2022-04-21 09:11 | RAD_ITS ---
STUDY: X-RAY CHEST REASON FOR EXAM: Male, 86 years old. Cough and fever. TECHNIQUE: Single AP portable view of the chest. COMPARISON: Comparison is made with prior study 06/22/2021. FINDINGS: EKG electrodes are seen. There is hyperinflation of the lungs consistent with chronic obstructive lung disease (COPD). Stable increased linear markings in the right upper lobe suggestive of scarring. Stable scarring at the lung bases with the bullous formation. Mild degree of increased markings at the left lung base suggestive of atelectasis and/or early infiltrate. Blunting of the left cardiac phrenic angle. Sternal cerclage wires and vascular clips are present from a prior sternotomy and coronary artery bypass graft procedure (CABG). Normal mediastinum and delma. Normal visualized pulmonary arteries. There is atherosclerotic calcification of the aortic arch with tortuosity. Normal visualized thoracic spine. Normal visualized ribs, clavicles, and shoulders. There is no demonstrated abnormality of the visualized soft tissue structures of the upper abdomen. RAD/Chest 1 View (Portable) IMPRESSION: Hyperinflation and changes compatible with COPD. There has been no change. Stable scarring in the right lung apex. Increased markings at the left lung base suggestive of atelectasis and/or early infiltrate with blunting of the left costophrenic angle. Electronically Signed: Amauri Elizalde MD at 9:54 EST ,
[2022-04-21 09:23] LABS: ALB/GLOB Ratio 0.6 RATIO (0.9-2.4); AST(SGOT) 11 U/L (15-37); Alanine Aminotransfer ALT/SGPT 11 U/L (16-61); Albumin, Serum 2.5 g/dL (3.2-5.0); Alkaline Phosphatase 97 U/L (45-117); Anion Gap 5 (5-15); BUN 20 mg/dL (7-18); BUN/Creat Ratio 15.7 RATIO (10-20); Calcium,Total 9.6 mg/dL (8.5-10.1); Chloride 102 mmol/L (98-107); Creatinine, Serum 1.27 mg/dL (0.70-1.30); EST Glomerular Filtration Rate 57 mL/min (>60); Est Glom Filt Rate - Afr Amer 69 mL/min (>60); Estimated Creatinine Clearance 27.42 ml/min; Globulin 4.2 g/dL (2.2-4.2); Glucose 108 mg/dL (74-106); Potassium 3.9 mmol/L (3.5-5.1); Protein, Total 6.7 g/dL (6.4-8.2); Sodium Level 137 mmol/L (136-145)
--- NOTE | 2022-04-21 10:21 | ED.RN ---
PER FAMILY, YESTERDAY PT TOOK 2 DAYS WORTH OF PILL. FAMILY STATES THAT HE HAD BEEN DELIRIOUS AND TOOK TOO MANY PILLS.
[2022-04-21 10:34] LABS: Mucous, Urine 0 SEEN /hpf (<or=2+)
[2022-04-21 10:40] LABS: Color, Urine Yellow (Yellow); Glucose, Dipstick Normal (Normal); Ketone-Dipstick Negative (Negative); Leukocyte Esterase-Dipstick 500 /ul (Negative); Nitrite-Dipstick Negative (Negative); Occult Blood-Urine 25 /ul (Negative); Protein-Dipstick 15 mg/dl (Negative); Specific Gravity, Urine 1.005 (1.002-1.030); Urine Bilirubin Dipstick Negative (Negative); Urine Clarity Sl. Cloudy (Clear); Urine Urobilinogen 1 mg/dl (Normal)
[2022-04-21 10:48] LABS: Bacteria 1+ /hpf (None Seen); Red Blood Cells-Urine 0-5 SEEN /hpf (0-5); Squamous Epithelial Cells - UA 0-5 SEEN /hpf (0-5); White Blood Cells 25-50 SEEN /hpf (0-5)
[2022-04-21] MEDS: Ceftriaxone 1 GM/50 ML BAG IV (11:09)
--- NOTE | 2022-04-21 11:21 | NURSING ---
DR MCBRIDE FOR DR ONEAL
--- NOTE | 2022-04-21 11:46 | NURSING ---
MED SURG JOKATIERI UTI, CONFUSION
[2022-04-21 12:51] LABS: Reflex Lactate? Y
[2022-04-21] MEDS: Acetaminophen 325 MG Tablet 650 MG PO ×2 (14:25→21:27)
[2022-04-21 14:41] LABS: Lactic Acid 3.5 mmol/L (0.4-1.9)
--- NOTE | 2022-04-21 15:26 | HP.PCM.HOS_ITS ---
HPI - General General Date of Admission: 04/21/22 Date of Service: 04/21/22 Chief Complaint: chills. confusion. [facility] Narrative ELODIA PARK, is a 86 M who presents w chills and confusion. Last night, patient was noted to be chilled. Patient's put much of blankets on him. Today, patient slept longer than usual and was noted to be confused. She was concerned the patient may have pneumonia as he presented similar to this with having pneumonia. Patient was found to be septic and found to have a urinary tract infection. Received IV fluids as well as ceftriaxone. Patient is still is confused at this time. Patient has not had a urinary tract infection that she has been aware of. 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 COPD (chronic obstructive pulmonary disease) COPD (chronic obstructive pulmonary disease) Delirium due to another medical condition Difficulty swallowing Dysphagia Dyspnea Emphysema, unspecified Essential (primary) hypertension Former smoker Heartburn History of steroid therapy Hyperlipidemia Loss of hearing Macular degeneration Multiple premature ventricular complexes Myocardial infarct Non-rheumatic aortic stenosis Old inferior wall myocardial infarction On home oxygen therapy Poor vision Pulmonary cachexia due to COPD Restless legs RLS (restless legs syndrome) Shortness of breath on exertion Squamous cell skin cancer Stage 3 severe COPD by GOLD classification Stroke/cerebrovascular accident Underweight Uses wheelchair Wears dentures Home Medications aspirin 81 mg chewable tablet 81 mg PO DAILY HEART HEALTH 07/24/16 [History Last Taken 03/14/22] tamsulosin 0.4 mg capsule 0.8 mg PO QHS BPH 12/21/18 [History Last Taken 03/17/22] metoprolol succinate 25 mg tablet,extended release 24 hr (Toprol XL) 12.5 mg PO QHS BLOO PRESSURE 06/22/21 [History Last Taken 03/17/22] tiotropium bromide 2.5 mcg/actuation mist for inhalation (Spiriva Respimat) 2 puff inhalation DAILY breathing 06/23/21 [History Last Taken 03/17/22] lisinopril 10 mg tablet 10 mg PO QHS blood pressure 03/16/22 [History Last Taken 03/17/22] albuterol sulfate 2.5 mg/3 mL (0.083 %) solution for nebulization 2.5 mg inhalation Q6H PRN PRN BREATHING 04/21/22 [History Last Taken Unknown] atorvastatin 80 mg tablet (Lipitor) 80 mg PO DAILY breathing 04/21/22 [History Last Taken Unknown] clopidogrel 75 mg tablet 75 mg PO DAILY heart health 04/21/22 [History Last Taken Unknown] ipratropium 20 mcg-albuterol 100 mcg/actuation mist for inhalation (Combivent Respimat) inhalation breathing 04/21/22 [History Last Taken Unknown] Allergy/AdvReac Type Severity Reaction Status Date / Time No Known Allergies Allergy Verified 04/21/22 08:12 Family History Mother CVA (cerebral vascular accident) Brother Myocardial infarction age 50 Surgical History H/O coronary artery bypass surgery (10/24/02) History of aortic valve replacement with tissue graft (10/24/02) History of coronary artery stent placement (1997) History of heart surgery Hx of lithotripsy Social History Smoking Status: Former smoker Tobacco: How many years used: 50 how long ago did patient quit smokin, 1ppd second hand exposure: Yes ROS Review of Systems ROS Unobtainable: due to encephalopathy Vital Signs Vital Signs Vital Signs: 04/21/22 08:12 04/21/22 08:16 04/21/22 08:16 Temperature 37.2 C 37.2 C Temperature Source Oral Oral Pulse Rate 70 71 Respiratory Rate 30 H 29 H Respiratory Effort Non-Labored Short of Breath Respiratory Depth Respiratory Pattern Normal Blood Pressure 106/53 L 106/53 L Blood Pressure Mean 70 70 Blood Pressure Source Blood Pressure Position Blood Pressure Location Pulse Ox 96 100 Oxygen Delivery Method Nasal Cannula Nasal Cannula Oxygen Flow Rate (L/min) 2 Fraction of Inspired Oxygen (FIO2) 2 04/21/22 08:36 04/21/22 09:28 04/21/22 09:30 Temperature 37.1 C Temperature Source Oral Pulse Rate 66 63 Respiratory Rate 22 H 20 H Respiratory Effort Respiratory Depth Respiratory Pattern Blood Pressure 130/50 H 130/50 H Blood Pressure Mean 76 76 Blood Pressure Source Blood Pressure Position Blood Pressure Location Pulse Ox 93 100 Oxygen Delivery Method Nasal Cannula Room Air Nasal Cannula Oxygen Flow Rate (L/min) 2 2 Fraction of Inspired Oxygen (FIO2) 04/21/22 10:17 04/21/22 10:29 04/21/22 11:00 Temperature 36.6 C Temperature Source Temporal Pulse Rate 62 58 L 54 L Respiratory Rate 22 H 20 H 20 H Respiratory Effort Respiratory Depth Respiratory Pattern Blood Pressure 93/44 L 91/49 L 90/57 L Blood Pressure Mean 60 63 68 Blood Pressure Source Blood Pressure Position Blood Pressure Location Pulse Ox 100 100 100 Oxygen Delivery Method Nasal Cannula Nasal Cannula Room Air Oxygen Flow Rate (L/min) 2 Fraction of Inspired Oxygen (FIO2) 04/21/22 13:17 04/21/22 13:26 04/21/22 13:42 Temperature 36.6 C 36.6 C Temperature Source Oral Oral Pulse Rate 62 58 L Respiratory Rate 18 18 Respiratory Effort Normal Non-Labored Respiratory Depth Normal Respiratory Pattern Normal Blood Pressure 123/50 H 123/50 H Blood Pressure Mean 74 74 Blood Pressure Source Monitor Blood Pressure Position Semi-Fowlers Blood Pressure Location Right Arm Pulse Ox 97 95 Oxygen Delivery Method Room Air Nasal Cannula Nasal Cannula Oxygen Flow Rate (L/min) 2 2 Fraction of Inspired Oxygen (FIO2) 04/21/22 14:23 Temperature 38.8 C H Temperature Source Oral Pulse Rate Respiratory Rate Respiratory Effort Respiratory Depth Respiratory Pattern Blood Pressure Blood Pressure Mean Blood Pressure Source Blood Pressure Position Blood Pressure Location Pulse Ox Oxygen Delivery Method Oxygen Flow Rate (L/min) Fraction of Inspired Oxygen (FIO2) Weight Weight: 47.3 kg Body Mass Index (BMI) 14.5 Physical Exam Const alert and no apparent distress HEENT normocephalic and head/scalp atraumatic Resp normal respiratory effort, no retractions, no use of accessory muscles and clear to auscultation bilaterally Cardio regular rate, regular rhythm, S1 normal heart sound and S2 normal heart sound GI normal to inspection, nondistended, normoactive bowel sounds, soft to palpation, non-tender and non-distended Extremity normal to inspection Neuro oriented x3 Results Lab / Micro Data Result Diagrams: 04/21/22 08:15 04/21/22 08:15 Labs: Laboratory Results - last 24 hr 04/21/22 08:15: WBC 10.2, RBC 3.61 L, Hgb 10.4 L, Hct 32.8 L, MCV 90.9, MCH 28.8, MCHC 31.7 L, RDW Std Deviation 45.4 H, RDW Coeff of Kaity 13.5, Plt Count 193, MPV 10.8, Immature Gran % (Auto) 0.400, Neut % (Auto) 71.8 H, Lymph % (Auto) 15.5 L, [place] % (Auto) 12.2 H, Eos % (Auto) 0.0, Baso % (Auto) 0.1, Absolute Neuts (auto) 7.3, Absolute Lymphs (auto) 1.58, Nucleated RBC % 0 04/21/22 08:15: PT 14.8, INR 1.2, APTT 31.2 04/21/22 08:15: Sodium 137, Potassium 3.9, Chloride 102, Carbon Dioxide 30.0, Anion Gap 5, BUN 20 H, Creatinine 1.27, Estim Creat Clear Calc 27.42, Est GFR (M DRD) Af Amer 69, Est GFR (MDRD) Non-Af 57 L, BUN/Creatinine Ratio 15.7, Glucose 108 H, Calcium 9.6, Total Bilirubin 0.60, AST 11 L, ALT 11 L, Alkaline Phosphatase 97, Total Protein 6.7, Albumin 2.5 L, Globulin 4.2, Albumin/Globulin Ratio 0.6 L 04/21/22 08:15: Lactic Acid 2.0 04/21/22 10:20: Urine Color Yellow, Urine Clarity Sl. Cloudy, Urine pH 7.0, Ur Specific [place] 1.005, Urine Protein 15 H, Urine Glucose (UA) Normal, Urine Ketones Negative, Urine Occult Blood 25 H, Urine Nitrite Negative, Urine Bilirubin Negative, Urine Urobilinogen 1 H, Ur Leukocyte Esterase 500 H, Urine RBC 0-5 SEEN, Urine WBC 25-50 SEEN, Ur Squamous Epith Cells 0-5 SEEN, Urine Bacteria 1+, Urine Mucus 0 SEEN 04/21/22 13:50: Lactic Acid 3.5 H* Radiology Impression Chest X-Ray 04/21/22 09:11 IMPRESSION: Hyperinflation and changes compatible with COPD. There has been no change. Stable scarring in the right lung apex. Increased markings at the left lung base suggestive of atelectasis and/or early infiltrate with blunting of the left costophrenic angle. Electronically Signed: Amauri Elizalde MD at 9:54 EST , Assessment & Plan Assessment/Plan (1) Sepsis: PLAN: qSOFA of 3 Secondary to UTI Follow-up cultures and adjust antibiotics accordingly (2) Urinary tract infection: PLAN: Started on ceftriaxone. Continue for now. Follow-up urine culture. (3) Encephalopathy: PLAN: Metabolic secondary to sepsis and UTI Avoid potentiating medications (4) Lactic acidosis: PLAN: Secondary to sepsis On IV fluids (5) Protein calorie malnutrition: PLAN: BMI have 14.5 Add supplements PLAN: Plan Chronic medical conditions * COPD: Not in exacerbation. Continue with bronchodilators * CVA: Continue with aspirin and clopidogrel * Dysphagia: Consult speech therapy * Hypertension: Given the sepsis. Will hold off on medications. VTE prophylaxis with enoxaparin Charges/Coding Visit Charges Inpatient E&M: 17099 Init Hosp L3
[2022-04-21] MEDS: Ipratropium/Albuterol Sulfate 3 ML AMPUL.NEB INHALATION (16:18)
[2022-04-21] MEDS: Tamsulosin HCl 0.4 MG Capsule 0.8 MG PO (21:20)
[2022-04-21] MEDS: Ensure Plus High Protein 120 ML LIQUID PO (21:20)
[2022-04-21] MEDS: Menthol/Lanolin/Calamine/Znox 113 GM Tube 1 APPLIC TOPICAL (21:27)
[2022-04-21] MEDS: 0.9% Normal Saline 1,000 ML 999 ML IV (23:14)
[2022-04-22] VITALS (9 sets, daily range): BP systolic 99–114; BP diastolic 48–68; PULSE 70–89; RESP 18–20; TEMP 37.1–37.4; O2SAT 96–99
[2022-04-22] MEDS: 0.9% Normal Saline 1,000 ML 150 ML IV ×2 (00:15→06:35)
[2022-04-22] MEDS: Albuterol 2.5 MG/3 ML VIAL.NEB. INHALATION (03:08)
--- NOTE | 2022-04-22 05:55 | RAD_ITS ---
STUDY: X-RAY CHEST REASON FOR EXAM: Male, 86 years old. Dyspnea TECHNIQUE: Single AP portable view of the chest. COMPARISON: Comparison is made with prior study dated 04/21/2022. FINDINGS: EKG electrodes are seen. There is hyperinflation of the lungs consistent with chronic obstructive lung disease (COPD). Stable linear density in the right lung apex. Progressive infiltrate in the left lower lobe with the blunting of both costophrenic angles. Sternal cerclage wires and vascular clips are present from a prior sternotomy and coronary artery bypass graft procedure (CABG). Normal mediastinum and delma. Normal visualized pulmonary arteries. There is atherosclerotic calcification of the aortic arch with tortuosity. There are diffuse degenerative changes of the visualized thoracic spine. Normal visualized ribs, clavicles, and shoulders. There is no demonstrated abnormality of the visualized soft tissue structures of the upper abdomen. RAD/Chest 1 View (Portable) IMPRESSION: Progressive infiltration in the posterior medial segment of the left lower lobe with blunting of both costophrenic angles. The remainder of the examination is unchanged. Electronically Signed: Amauri Elizalde MD at 9:50 EST ,
[2022-04-22 06:48] LABS: Absolute Lymphocyte Count 0.83 X10^3/uL (0.83-4.51); Absolute Neutrophil Count 9.3 X10^3/uL (2.0-7.7); Basophil# 0.02 X10^3/uL; Basophil% 0.2 % (0-1); Hematocrit 28.7 % (40-54); Hemoglobin 8.8 g/dL (13.0-16.5); Lymphocyte # 0.83 X10^3/ul (0.83-4.51); Lymphocyte % 7.2 % (19-41); Mean Corp Hgb Conc 30.7 g/dL (32-36); Mean Corpuscular Hgb 28.6 pg (27.0-32.0); Mean Corpuscular Volume 93.2 fL (80-94); Mean Platelet Vol. 10.7 fl (6.2-12.0); Monocyte# 1.34 X10^3/uL; Monocyte% 11.6 % (0-10); NRBC Flagged by Analyzer 0 % (0-5); Neutrophil # 9.33 X10^3/uL (2.7-7.7); Neutrophil % 80.6 % (47-70); Platelet Count 162 K/mm3 (150-450); RBC Distribution Width CV 13.7 % (11.6-14.6); RBC Distribution Width SD 46.9 fl (35.1-43.9); Red Blood Count 3.08 M/mm3 (4.6-6.2); White Blood Count 11.6 K/mm3 (4.4-11.0)
[2022-04-22 07:11] LABS: BUN 24 mg/dL (7-18); Creatinine, Serum 0.87 mg/dL (0.70-1.30); Estimated Creatinine Clearance 40.02 ml/min; Glucose 136 mg/dL (74-106)
[2022-04-22 07:12] LABS: ALB/GLOB Ratio 0.5 RATIO (0.9-2.4); AST(SGOT) 18 U/L (15-37); Alanine Aminotransfer ALT/SGPT 12 U/L (16-61); Albumin, Serum 1.8 g/dL (3.2-5.0); Alkaline Phosphatase 78 U/L (45-117); Anion Gap 3 (5-15); BUN/Creat Ratio 27.6 RATIO (10-20); Chloride 113 mmol/L (98-107); EST Glomerular Filtration Rate 88 mL/min (>60); Est Glom Filt Rate - Afr Amer 107 mL/min (>60); Globulin 3.4 g/dL (2.2-4.2); Potassium 3.9 mmol/L (3.5-5.1); Protein, Total 5.2 g/dL (6.4-8.2); Sodium Level 141 mmol/L (136-145)
[2022-04-22] MEDS: Ipratropium/Albuterol Sulfate 3 ML AMPUL.NEB INHALATION ×4 (07:18→19:49)
--- NOTE | 2022-04-22 07:22 | PN.HOSP_ITS ---
Reason for Visit Reason for Visit: Diagnoses Sepsis, unspecified organism (04/21/22) Unspecified protein-calorie malnutrition (04/21/22) Acidosis, unspecified (04/21/22) Encephalopathy, unspecified (04/21/22) Urinary tract infection, site not specified (04/21/22) Subjective Subjective Feels well. Objective Data Objective Data Vital Signs: Vital Signs Temp Pulse Resp BP Pulse Ox O2 Del Method O2 Flow Rate 37.2 C 79 20 H 114/48 L 97 Nasal Cannula 3 04/22/22 03:56 04/22/22 03:56 04/22/22 03:56 04/22/22 03:56 04/22/22 03:56 04/22/22 03:58 04/22/22 03:58 FiO2 2 04/21/22 08:16 Oxygen Flow Rate (L/min) 3 Oxygen Delivery Method Nasal Cannula Weight: 47.3 kg Body Mass Index (BMI) 14.5 Intake & Output: Intake and Output for Last 24 Hours 04/20/22 04/21/22 04/22/22 23:59 23:59 23:59 Intake Total 2977.5 / 2977.5 1949 Output Total 325 / 325 Balance 2652.5 / 2652.5 1949 Medical Nutrition Assessment Dietitian: Malnutrition Criteria Met Start: 04/21/22 16:01 Freq: Status: Active Protocol: Document 04/21/22 16:26 AG (Rec: 04/21/22 16:26 AG [id number]) Nutrition Malnutrition Evidence of Malnutrition Exists Yes Malnutrition (severe): Chronic Evidenced By Suboptimal Energy Intake ( Severe),Physical Changes ( Severe) Clinical Problem Chronic Disease or Condition Related Malnutrition Etiology chronic severe malnutrition related to inadequate energy intake Signs/Symptoms as evidenced by reported PO intake meeting <50% of estimated energy needs > 1 year; Severe muscle wasting/ fat loss evident in orbital, clavicle, acromion, and temporal areas; BMI 14.5 Status Active Problem Recommendation Dietitian Recommendations/Changes continue regular diet as tolerated- texture/consistency per WOOD FINISHER APPRENTICE; will increase ensure plus high protein to 120mL 4x /day given evidence of malnutrition. Will also give 240mL ensure w/ milkshake w/ dinner. If deemed unsafe for PO intake, consider enteral nutrition support. Lab / Micro Data Result Diagrams: 04/22/22 06:05 04/22/22 06:05 Labs: Laboratory Results - last 24 hr 04/21/22 08:15: WBC 10.2, RBC 3.61 L, Hgb 10.4 L, Hct 32.8 L, MCV 90.9, MCH 28.8, MCHC 31.7 L, RDW Std Deviation 45.4 H, RDW Coeff of Kaity 13.5, Plt Count 193, MPV 10.8, Immature Gran % (Auto) 0.400, Neut % (Auto) 71.8 H, Lymph % (Auto ) 15.5 L, [place] % (Auto) 12.2 H, Eos % (Auto) 0.0, Baso % (Auto) 0.1, Absolute Neuts (auto) 7.3, Absolute Lymphs (auto) 1.58, Nucleated RBC % 0 04/21/22 08:15: PT 14.8, INR 1.2, APTT 31.2 04/21/22 08:15: Sodium 137, Potassium 3.9, Chloride 102, Carbon Dioxide 30.0, Anion Gap 5, BUN 20 H, Creatinine 1.27, Estim Creat Clear Calc 27.42, Est GFR (MDRD) Af Amer 69, Est GFR (MDRD) Non-Af 57 L, BUN/Creatinine Ratio 15.7, Glucose 108 H, Calcium 9.6, Total Bilirubin 0.60, AST 11 L, ALT 11 L, Alkaline Phosphatase 97, Total Protein 6.7, Albumin 2.5 L, Globulin 4.2, Albumin/Globulin Ratio 0.6 L 04/21/22 08:15: Lactic Acid 2.0 04/21/22 10:20: Urine Color Yellow, Urine Clarity Sl. Cloudy, Urine pH 7.0, Ur Specific [place] 1.005, Urine Protein 15 H, Urine Glucose (UA) Normal, Urine Ketones Negative, Urine Occult Blood 25 H, Urine Nitrite Negative, Urine Bilirubin Negative, Urine Urobilinogen 1 H, Ur Leukocyte Esterase 500 H, Urine RBC 0-5 SEEN, Urine WBC 25-50 SEEN, Ur Squamous Epith Cells 0-5 SEEN, Urine Bacteria 1+, Urine Mucus 0 SEEN 04/21/22 13:50: Lactic Acid 3.5 H* 04/22/22 06:05: WBC 11.6 H, RBC 3.08 L, Hgb 8.8 L, Hct 28.7 L, MCV 93.2, MCH 28.6, MCHC 30.7 L, RDW Std Deviation 46.9 H, RDW Coeff of Kaity 13.7, Plt Count 162, MPV 10.7, Immature Gran % (Auto) 0.400, Neut % (Auto) 80.6 H, Lymph % (Auto) 7.2 L, [place] % (Auto) 11.6 H, Eos % (Auto) 0.0, Baso % (Auto) 0.2, Absolute Neuts (auto) 9.3 H, Absolute Lymphs (auto) 0.83, Nucleated RBC % 0 04/22/22 06:05: Sodium 141, Potassium 3.9, Chloride 113 H, Carbon Dioxide 25.0, Anion Gap 3 L, BUN 24 H, Creatinine 0.87, Estim Creat Clear Calc 40.02, Est GFR (MDRD) Af Amer 107, Est GFR (MDRD) Non-Af 88, BUN/Creatinine Ratio 27.6 H, Glucose 136 H, Calcium 9.0, Total Bilirubin 0.20, AST 18, ALT 12 L, Alkaline Phosphatase 78, Total Protein 5.2 L, Albumin 1.8 L, Globulin 3.4, Albumin/Globulin Ratio 0.5 L Radiography Diagnostic Testing: Radiology Impression Chest X-Ray 04/21/22 09:11 IMPRESSION: Hyperinflation and changes compatible with COPD. There has been no change. Stable scarring in the right lung apex. Increased markings at the left lung base suggestive of atelectasis and/or early infiltrate with blunting of the left costophrenic angle. Electronically Signed: Amauri Elizalde MD at 9:54 EST , Physical Exam Const Constitutional Narrative: up in chair. NAD. No rigors. Resp normal respiratory effort, no retractions, no use of accessory muscles and clear to auscultation bilaterally Cardio regular rate, regular rhythm, S1 normal heart sound and S2 normal heart sound GI normal to inspection, nondistended, normoactive bowel sounds, soft to palpation, non-tender and non-distended Extremity normal to inspection Assessment & Plan Assessment/Plan (1) Sepsis: PLAN: Improved admission qSOFA of 3 Secondary to UTI Follow-up cultures and adjust antibiotics accordingly. Thus far cultures negative. COVID-19 and influenza rapid negative. (2) Urinary tract infection: PLAN: Started on ceftriaxone. Continue for now. Cx showing enterococus sp. (3) Encephalopathy: PLAN: Metabolic secondary to sepsis and UTI Avoid potentiating medications (4) Lactic acidosis: PLAN: Secondary to sepsis On IV fluids (5) Protein calorie malnutrition: PLAN: BMI have 14.5 Add supplements PLAN: Plan Chronic medical conditions * COPD: Not in exacerbation. Continue with bronchodilators * CVA: Continue with aspirin and clopidogrel * Dysphagia: Consult speech therapy * Hypertension: Given the sepsis. Will hold off on medications. VTE prophylaxis with enoxaparin Charges/Coding Visit Charges Inpatient E&M: 67446 Subs Hosp L2
[2022-04-22] MEDS: Aspirin 81 MG TAB.CHEW PO (07:55)
[2022-04-22] MEDS: Atorvastatin Calcium 80 MG Tablet PO (07:55)
[2022-04-22] MEDS: Enoxaparin 30 MG/0.3 ML Syringe SC (07:55)
[2022-04-22] MEDS: Ensure Plus High Protein 120 ML LIQUID PO ×4 (07:55→20:57)
[2022-04-22] MEDS: Clopidogrel Bisulfate 75 MG Tablet PO (07:55)
[2022-04-22] MEDS: Ceftriaxone 1 GM/50 ML BAG IV (10:10)
--- NOTE | 2022-04-22 10:40 | CASEMGMT ---
RN CM Assessment: Face to Face with pt for initial transition planning/care coordination assessment. RN CM introduced self and role at [facility], pt voices understanding and consents to assessment. Pt is A/O x4 and answers all questions appropriately at this time. Pt sitting up in chair in no distress with at bedside. Care providers, pharmacy, and demographics verified/updated. Admitting Dx: sepsis, UTI PCP:Tyler Specialists: Gunner, cardio; Roger, pulm; logistics management specialist in [facility] Pharmacy: [email or web address] Insurance: [employer] [facility] Prescription Benefit: yes LNOK: Rhonda Del Cid, Living Arrangements: Pt lives with in a mobile home with 3-4 steps to enter with a rail. Pt reports his assists with ADL's and provides the cooking and cleaning of the home. Pt denies concerns at home. Transportation: Pt provides transportation. DME/HHC/SNF: Pt has a walk in tub, rollator and oxygen at home through [employer]. Pt states he wears 3L continuous. Pt states she will bring his portable tank to go home with. Pt has had [facility] HHC in the past and denies SNF stays. Pt states no concerns with going home at time of dc. Currently he does not feel he would need any therapy at home. He is aware that this RN CM will follow with him. Pt states no further concerns/needs. Advised pt to ask CM if any further question/concerns/needs arise, voices understanding. Pt Goal: Home Plan: Home, follow for increased oxygen needs and therapy.
[2022-04-22] MEDS: Menthol/Lanolin/Calamine/Znox 113 GM Tube 1 APPLIC TOPICAL ×2 (13:26→20:56)
--- NOTE | 2022-04-22 16:12 | CHAPLAIN ---
Type of Pastoral Visit _x__ Initial Visit ___ Follow-up Visit ___ On-call Visit ___ General Patient Visit ___ Spiritual Assessment ___ Family Conference ___ Bereavement ___ Rapid Response ___ Code Blue ___ Other (describe below) Pastoral Care Referral From _x__ Patient ___ Family ___ Nurse ___ Physician ___ Insurance Writer ___ Child Development Specialist ___ Other (describe below) Sacrament/Intervention _x__ Active listening ___ Anointing ___ Rastafari ___ Bereavement ___ Communion ___ Brandi exploration ___ _x__ Life review _x__ Prayer ___ Reconciliation ___ Sacrament of Sick _x__ Supportive presence ___ Wedding ___ Other (describe below) Pastoral Comments patient was heard 'arguing' with his family but was pleasant and appropriate when this primary care physician entered the room; pt states how he is feeling and about the good care from his family and the good care from the staff; pt says he has no needs but spouse asks for a prayer; offer of support, listening, and return visit given as desired
[2022-04-22] MEDS: Tamsulosin HCl 0.4 MG Capsule 0.8 MG PO (20:57)
[2022-04-23 03:35] VITALS: BP 114/62; PULSE 61; RESP 18; TEMP 37.4; O2SAT 100
--- NOTE | 2022-04-23 04:02 | PN.HOSP_ITS ---
Hospitalist Note Lab called preliminary GPC on Bld Cx x 1; however, noted further assessment would be completed this AM. Discussion with lab and they note likely c ontaminant.
[2022-04-23] MEDS: Menthol/Lanolin/Calamine/Znox 113 GM Tube 1 APPLIC TOPICAL (05:17)
[2022-04-23 06:42] LABS: Absolute Lymphocyte Count 1.35 X10^3/uL (0.83-4.51); Absolute Neutrophil Count 5.8 X10^3/uL (2.0-7.7); Basophil# 0.02 X10^3/uL; Basophil% 0.2 % (0-1); Eosinophil# 0.03 X10^3/uL; Eosinophils% 0.4 % (0-5); Hematocrit 28.3 % (40-54); Hemoglobin 8.6 g/dL (13.0-16.5); Lymphocyte # 1.35 X10^3/ul (0.83-4.51); Lymphocyte % 16.3 % (19-41); Mean Corp Hgb Conc 30.4 g/dL (32-36); Mean Corpuscular Hgb 28.8 pg (27.0-32.0); Mean Corpuscular Volume 94.6 fL (80-94); Monocyte% 12.1 % (0-10); NRBC Flagged by Analyzer 0.2 % (0-5); Neutrophil # 5.83 X10^3/uL (2.7-7.7); Neutrophil % 70.4 % (47-70); Platelet Count 188 K/mm3 (150-450); RBC Distribution Width CV 13.7 % (11.6-14.6); RBC Distribution Width SD 47.5 fl (35.1-43.9); Red Blood Count 2.99 M/mm3 (4.6-6.2); White Blood Count 8.3 K/mm3 (4.4-11.0)
[2022-04-23 07:16] LABS: ALB/GLOB Ratio 0.5 RATIO (0.9-2.4); AST(SGOT) 19 U/L (15-37); Alanine Aminotransfer ALT/SGPT 14 U/L (16-61); Albumin, Serum 1.8 g/dL (3.2-5.0); Alkaline Phosphatase 76 U/L (45-117); Anion Gap 4 (5-15); BUN 21 mg/dL (7-18); BUN/Creat Ratio 22.8 RATIO (10-20); Calcium,Total 9.4 mg/dL (8.5-10.1); Chloride 112 mmol/L (98-107); Creatinine, Serum 0.92 mg/dL (0.70-1.30); EST Glomerular Filtration Rate 82 mL/min (>60); Est Glom Filt Rate - Afr Amer 100 mL/min (>60); Estimated Creatinine Clearance 37.85 ml/min; Globulin 3.6 g/dL (2.2-4.2); Glucose 102 mg/dL (74-106); Potassium 3.8 mmol/L (3.5-5.1); Protein, Total 5.4 g/dL (6.4-8.2); Sodium Level 144 mmol/L (136-145)
--- NOTE | 2022-04-23 07:54 | PN.HOSP_ITS ---
Reason for Visit Reason for Visit: Diagnoses Sepsis, unspecified organism (04/21/22) Unspecified protein-calorie malnutrition (04/21/22) Acidosis, unspecified (04/21/22) Encephalopathy, unspecified (04/21/22) Urinary tract infection, site not specified (04/21/22) Subjective Subjective Feels well. Ready go home. On chronic oxygen. Objective Data Objective Data Vital Signs: Vital Signs Temp Pulse Resp BP Pulse Ox O2 Del Method O2 Flow Rate 37.4 C H 61 18 114/62 100 Nasal Cannula 3 04/23/22 03:35 04/23/22 03:35 04/23/22 03:35 04/23/22 03:35 04/23/22 03:35 04/23/22 03:35 04/23/22 03:35 FiO2 2 04/21/22 08:16 Oxygen Flow Rate (L/min) 3 Oxygen Delivery Method Nasal Cannula Weight: 47.3 kg Body Mass Index (BMI) 14.5 Intake & Output: Intake and Output for Last 24 Hours 04/21/22 04/22/22 04/23/22 23:59 23:59 23:59 Intake Total 2977.5 / 2977.5 3000 / 3000 Output Total 325 / 325 Balance 2652.5 / 2652.5 3000 / 3000 Medical Nutrition Assessment Dietitian: Malnutrition Criteria Met Start: 04/21/22 16:01 Freq: Status: Active Protocol: Document 04/21/22 16:26 AG (Rec: 04/21/22 16:26 [id number]) Nutrition Malnutrition Evidence of Malnutrition Exists Yes Malnutrition (severe): Chronic Evidenced By Suboptimal Energy Intake ( Severe),Physical Changes ( Severe) Clinical Problem Chronic Disease or Condition Related Malnutrition Etiology chronic severe malnutrition related to inadequate energy intake Signs/Symptoms as evidenced by reported PO intake meeting <50% of estimated energy needs > 1 year; Severe muscle wasting/ fat loss evident in orbital, clavicle, acromion, and temporal areas; BMI 14.5 Status Active Problem Recommendation Dietitian Recommendations/Changes continue regular diet as tolerated- texture/consistency per [employer]; will increase ensure plus high protein to 120mL 4x /day given evidence of malnutrition. Will also give 240mL ensure w/ milkshake w/ dinner. If deemed unsafe for PO intake, consider enteral nutrition support. Lab / Micro Data Result Diagrams: 04/23/22 05:35 04/23/22 05:35 Labs: Laboratory Results - last 24 hr 04/23/22 05:35: WBC 8.3, RBC 2.99 L, Hgb 8.6 L, Hct 28.3 L, MCV 94.6 H, MCH 28.8, MCHC 30.4 L, RDW Std Deviation 47.5 H, RDW Coeff of Kaity 13.7, Plt Count 188, MPV 11.0, Immature Gran % (Auto) 0.600, Neut % (Auto) 70.4 H, Lymph % (Auto) 16.3 L, [place] % (Auto) 12.1 H, Eos % (Auto) 0.4, Baso % (Auto) 0.2, Absolute Neuts (auto) 5.8, Absolute Lymphs (auto) 1.35, Nucleated RBC % 0.2 04/23/22 05:35: Sodium 144, Potassium 3.8, Chloride 112 H, Carbon Dioxide 28.0, Anion Gap 4 L, BUN 21 H, Creatinine 0.92, Estim Creat Clear Calc 37.85, Est GFR (MDRD) Af Amer 100, Est GFR (MDRD) Non-Af 82, BUN/Creatinine Ratio 22.8 H, Glucose 102, Calcium 9.4, Total Bilirubin 0.20, AST 19, ALT 14 L, Alkaline Phosphatase 76, Total Protein 5.4 L, Albumin 1.8 L, Globulin 3.6, Albumin/Globulin Ratio 0.5 L Micro: Microbiology 04/21/22 10:20 Urine, Random Urine Culture - Final Enterococcus faecalis 04/21/22 08:45 Blood Culture (Wb) - Anticubital Left Bacteria Detection (PCR) - Final 04/21/22 08:45 Blood Culture (Wb) - Anticubital Left Blood Culture - Preliminary 04/22/22 08:05 Nasal Secretion SARS-CoV-2 & FLU Antigen (Rapid) - Final Radiography Diagnostic Testing: Radiology Impression Chest X-Ray 04/22/22 05:55 IMPRESSION: Progressive infiltration in the posterior medial segment of the left lower lobe with blunting of both costophrenic angles. The remainder of the examination is unchanged. Electronically Signed: Amauri Elizalde MD at 9:50 EST , Physical Exam Narrative - Physical Exam General: Alert, Oriented x3, Cooperative HEENT: Atraumatic, PERRLA, EOMI, Normocephalic Oral: Moist Mucosa, No Gingival or Mucosal Lesions/ Ulcerations Neck: Supple, No JVD, Negative Carotid Bruits Lungs: Clear to auscultation, Normal air movement Cardiovascular: Regular rate, Normal S1, Normal S2, No murmurs Abdomen: Bowel Sounds Present, Soft, Non Tender, Non-Distended, No Hepato- splenomegaly Extremities: No clubbing, No cyanosis, No edema, Capillary Refill Less than 3 Seconds Skin: No rashes, No breakdown Musculoskeletal: No Tenderness to Palpation of Joints or Extremities Neurological: Neuro grossly intact Psych/Mental Status: Normal Affect, Appropriate Assessment & Plan Assessment/Plan (1) Sepsis: PLAN: Improved admission qSOFA of 3 Secondary to UTI Follow-up cultures and adjust antibiotics accordingly. Thus far cultures negative. COVID-19 and influenza rapid negative. (2) Urinary tract infection: PLAN: Started on ceftriaxone. Continue for now. Cx showing Enterococcus faecalis that is sensitive to ampicillin, gentamicin, linezolid, streptomycin and vancomycin Changed to ampicillin. Amoxicillin upon discharge. (3) Encephalopathy: PLAN: Improved metabolic secondary to sepsis and UTI Avoid potentiating medications (4) Lactic acidosis: PLAN: Secondary to sepsis On IV fluids (5) Protein calorie malnutrition: PLAN: BMI have 14.5 Add supplements PLAN: Plan Chronic medical conditions * COPD: Not in exacerbation. Continue with bronchodilators * CVA: Continue with aspirin and clopidogrel * Dysphagia: Consult speech therapy * Hypertension: Given the sepsis. Will hold off on medications. VTE prophylaxis with enoxaparin
[2022-04-23 08:39] VITALS: O2SAT 98
[2022-04-23] MEDS: Enoxaparin 30 MG/0.3 ML Syringe SC (09:01)
[2022-04-23] MEDS: Ensure Plus High Protein 120 ML LIQUID PO (09:02)
[2022-04-23] MEDS: Aspirin 81 MG TAB.CHEW PO (09:02)
[2022-04-23] MEDS: Atorvastatin Calcium 80 MG Tablet PO (09:02)
[2022-04-23] MEDS: Clopidogrel Bisulfate 75 MG Tablet PO (09:02)
[2022-04-23] MEDS: 0.9% Saline Lock 10 ML Syringe IV (09:11)
--- NOTE | 2022-04-23 09:21 | DCINST_ITS ---
Discharge Instructions Diet Discharge Diet: No restrictions Dressing / Incision Call your doctor if you observe: Fever of 101 or Higher Follow Up Care Test Results: Test results from this visit will be discussed in further detail at your follow- up appointment, if applicable. Discharge Plan Admission Admit Date/Time: 04/21/22 11:15 Primary Reason for Your Visit: sepsis. UTI Attending Provider: [place] Primary Care Provider: Ancelmo Scott Chi Discharge Orders/Prescriptions Prescriptions: New Ensure Plus High Protein 0.08 gram-1.5 kcal/mL Liquid 120 ml PO 4X/DAY Qty: 60 0RF amoxicillin 250 mg/5 mL suspension for reconstitution 500 mg PO Q6H 5 Days Qty: 200 0RF Continued tamsulosin 0.4 mg capsule 0.8 mg PO QHS aspirin 81 MG tablet,chewable 81 mg PO DAILY metoprolol succinate [Toprol XL] 25 mg tablet extended release 24 hr 12.5 mg PO QHS Spiriva Respimat 2.5 mcg/actuation mist 2 puff INHALATION DAILY atorvastatin [Lipitor] 80 mg Tablet 80 mg PO DAILY Combivent Respimat 20-100 mcg/actuation mist INHALATION Label Comments: INHALE 1 PUFF DAILY albuterol sulfate 2.5 mg /3 mL (0.083 %) solution for nebulization 2.5 mg INHALATION Q6H PRN PRN (Reason: BREATHING) clopidogrel 75 mg tablet 75 mg PO DAILY Discontinued lisinopril 10 mg tablet 10 mg PO QHS Referrals / Follow Up: Ancelmo Scott Chi, MD [Primary Care Provider] - Within 2 Weeks Disposition Disposition (needs filled in before D/C Order can be placed): Home, Self Care
--- NOTE | 2022-04-23 09:27 | DS.PCM_ITS ---
Providers Date of Admission: 04/21/22 Primary Care Physician: Dr. Ancelmo Scott MD Reason For Visit: SEPSIS UTI Diagnosis Discharge Diagnosis (1) Sepsis: Status: Acute Code(s): A41.9 - Sepsis, unspecified organism Plan: Improved admission qSOFA of 3 Secondary to UTI Follow-up cultures and adjust antibiotics accordingly. Thus far cultures negative. COVID-19 and influenza rapid negative. (2) Urinary tract infection: Status: Acute Code(s): N39.0 - Urinary tract infection, site not specified Plan: Started on ceftriaxone. Continue for now. Cx showing Enterococcus faecalis that is sensitive to ampicillin, gentamicin, linezolid, streptomycin and vancomycin Changed to ampicillin. Amoxicillin upon discharge. (3) Encephalopathy: Status: Acute Code(s): G93.40 - Encephalopathy, unspecified Plan: Improved metabolic secondary to sepsis and UTI Avoid potentiating medications (4) Lactic acidosis: Status: Acute Code(s): E87.20 - Acidosis, unspecified Plan: Secondary to sepsis On IV fluids (5) Protein calorie malnutrition: Status: Acute Code(s): E46 - Unspecified protein-calorie malnutrition Plan: BMI have 14.5 Add supplements Plan Chronic medical conditions * COPD: Not in exacerbation. Continue with bronchodilators * CVA: Continue with aspirin and clopidogrel * Dysphagia: Consult speech therapy * Hypertension: Given the sepsis. Will hold off on medications. VTE prophylaxis with enoxaparin Medications at Discharge Home Medications aspirin 81 mg chewable tablet 81 mg PO DAILY [facility] 07/24/16 tamsulosin 0.4 mg capsule 0.8 mg PO QHS BPH 12/21/18 metoprolol succinate 25 mg tablet,extended release 24 hr (Toprol XL) 12.5 mg PO QHS BLOO PRESSURE 06/22/21 tiotropium bromide 2.5 mcg/actuation mist for inhalation (Spiriva Respimat) 2 puff inhalation DAILY breathing 06/23/21 albuterol sulfate 2.5 mg/3 mL (0.083 %) solution for nebulization 2.5 mg inhalation Q6H PRN PRN BREATHING 04/21/22 atorvastatin 80 mg tablet (Lipitor) 80 mg PO DAILY breathing 04/21/22 clopidogrel 75 mg tablet 75 mg PO DAILY [facility] 04/21/22 ipratropium 20 mcg-albuterol 100 mcg/actuation mist for inhalation (Combivent Respimat) inhalation breathing 04/21/22 amoxicillin 250 mg/5 mL oral suspension 500 mg (10 mL) PO Q6H 5 days #200 mL 04/23/22 food supplemt, lactose-reduced 0.08 gram-1.5 kcal/mL oral liquid (Ensure Plus High Protein) 120 ml PO 4X/DAY #60 BOTTLES 04/23/22 Hospital Course Operations None Procedures None Summary of Care Provided Minutes Spent on Discharge: 32 Medical Records Data Medical Nutrition Assessment Dietitian: Malnutrition Criteria Met Start: 04/21/22 16:01 Freq: Status: Active Protocol: Document 04/21/22 16:26 AG (Rec: 04/21/22 16:26 AG [id number]) Nutrition Malnutrition Evidence of Malnutrition Exists Yes Malnutrition (severe): Chronic Evidenced By Suboptimal Energy Intake ( Severe),Physical Changes ( Severe) Clinical Problem Chronic Disease or Condition Related Malnutrition Etiology chronic severe malnutrition related to inadequate energy intake Signs/Symptoms as evidenced by reported PO intake meeting <50% of estimated energy needs > 1 year; Severe muscle wasting/ fat loss evident in orbital, clavicle, acromion, and temporal areas; BMI 14.5 Status Active Problem Recommendation Dietitian Recommendations/Changes continue regular diet as tolerated- texture/consistency per [employer]; will increase ensure plus high protein to 120mL 4x /day given evidence of malnutrition. Will also give 240mL ensure w/ milkshake w/ dinner. If deemed unsafe for PO intake, consider enteral nutrition support. Weight / BMI Weight Weight: 47.3 kg Body Mass Index (BMI) 14.5 ABG / Lab / Microbiology Data Result Diagrams: 04/23/22 05:35 04/23/22 05:35 Laboratory: Laboratory Results - last 24 hr 04/23/22 05:35: WBC 8.3, RBC 2.99 L, Hgb 8.6 L, Hct 28.3 L, MCV 94.6 H, MCH 28.8, MCHC 30.4 L, RDW Std Deviation 47.5 H, RDW Coeff of Kaity 13.7, Plt Count 188, MPV 11.0, Immature Gran % (Auto) 0.600, Neut % (Auto) 70.4 H, Lymph % (Auto) 16.3 L, [place] % (Auto) 12.1 H, Eos % (Auto) 0.4, Baso % (Auto) 0.2, Absolute Neuts (auto) 5.8, Absolute Lymphs (auto) 1.35, Nucleated RBC % 0.2 04/23/22 05:35: Sodium 144, Potassium 3.8, Chloride 112 H, Carbon Dioxide 28.0, Anion Gap 4 L, BUN 21 H, Creatinine 0.92, Estim Creat Clear Calc 37.85, Est GFR (MDRD) Af Amer 100, Est GFR (MDRD) Non-Af 82, BUN/Creatinine Ratio 22.8 H, Glucose 102, Calcium 9.4, Total Bilirubin 0.20, AST 19, ALT 14 L, Alkaline Ph osphatase 76, Total Protein 5.4 L, Albumin 1.8 L, Globulin 3.6, Albumin/Globulin Ratio 0.5 L Microbiology: Microbiology 04/21/22 10:20 Urine, Random Urine Culture - Final Enterococcus faecalis 04/21/22 08:45 Blood Culture (Wb) - Anticubital Left Bacteria Detection (PCR) - Final 04/21/22 08:45 Blood Culture (Wb) - Anticubital Left Blood Culture - Preliminary 04/22/22 08:05 Nasal Secretion SARS-CoV-2 & FLU Antigen (Rapid) - Final Radiography Diagnostic Testing: Radiology Impression Chest X-Ray 04/22/22 05:55 IMPRESSION: Progressive infiltration in the posterior medial segment of the left lower lobe with blunting of both costophrenic angles. The remainder of the examination is unchanged. Electronically Signed: Amauri Elizalde MD at 9:50 EST , D/C Instructions Discharge Diet: No restrictions Call your doctor if you observe: Fever of 101 or Higher Meaningful Use Info Meaningful Use Diagnoses (Choose all that apply): None applicable Discharge Plan Admission Admit Date/Time: 04/21/22 11:15 Primary Reason for Your Visit: sepsis. UTI Attending Provider: [place] Primary Care Provider: Ancelmo Scott Chi Discharge Orders/Prescriptions Prescriptions: New Ensure Plus High Protein 0.08 gram-1.5 kcal/mL Liquid 120 ml PO 4X/DAY Qty: 60 0RF amoxicillin 250 mg/5 mL suspension for reconstitution 500 mg PO Q6H 5 Days Qty: 200 0RF Continued tamsulosin 0.4 mg capsule 0.8 mg PO QHS aspirin 81 MG tablet,chewable 81 mg PO DAILY metoprolol succinate [Toprol XL] 25 mg tablet extended release 24 hr 12.5 mg PO QHS Spiriva Respimat 2.5 mcg/actuation mist 2 puff INHALATION DAILY atorvastatin [Lipitor] 80 mg Tablet 80 mg PO DAILY Combivent Respimat 20-100 mcg/actuation mist INHALATION Label Comments: INHALE 1 PUFF DAILY albuterol sulfate 2.5 mg /3 mL (0.083 %) solution for nebulization 2.5 mg INHALATION Q6H PRN PRN (Reason: BREATHING) clopidogrel 75 mg tablet 75 mg PO DAILY Discontinued lisinopril 10 mg tablet 10 mg PO QHS Referrals / Follow Up: Ancelmo Scott Chi, MD [Primary Care Provider] - Within 2 Weeks Disposition Disposition (needs filled in before D/C Order can be placed): Home, Self Care Charges/Coding Visit Charges Inpatient E&M: 55606 Disch Hosp >30min
[2022-04-23 09:37] VITALS: BP 122/52; PULSE 69; RESP 18; TEMP 37.4; O2SAT 100
--- NOTE | 2022-04-23 09:48 | CASEMGMT ---
Addendum entered by Jessica Bates 04/23/22 13:08: Pt did not require a change in oxygen needs. Original Note: RN CM in to pt room, at bedside. Pt is declining HHC. Pt states that didn't like it last time. Spoke with pt nurse who will test pt for increased oxygen needs. Pt did bring in portable tank. Pt denies any homegoing needs.
[2022-04-23] MEDS: Ipratropium/Albuterol Sulfate 3 ML AMPUL.NEB INHALATION (10:45)
[2022-04-23 10:59] VITALS: PULSE 71; RESP 20
[2022-04-23 11:24] VITALS: O2SAT 87; O2SAT 93; O2SAT 96
== END 2022-04-23 11:37 | disposition home or self-care (01) | DRG 871 ==
LOC: ED 10:58 → MS3 12:07
PROVIDERS: Emergency Provider Emergency Medicine; PCP Family Medicine Geriatric Medicine
DX: A41.9 Sepsis, unspecified organism (principal); E43 Unspecified severe protein-calorie malnutrition; G93.41 Metabolic encephalopathy; E87.20 Acidosis, unspecified; N39.0 Urinary tract infection, site not specified; Z68.1 Body mass index [BMI] 19.9 or less, adult; J44.9 Chronic obstructive pulmonary disease, unspecified; E78.5 Hyperlipidemia, unspecified; I25.10 Atherosclerotic heart disease of native coronary artery without angina pectoris; I10 Essential (primary) hypertension; Z87.891 Personal history of nicotine dependence; Z95.5 Presence of coronary angioplasty implant and graft; R41.0 Disorientation, unspecified; Z79.02 Long term (current) use of antithrombotics/antiplatelets; Z79.82 Long term (current) use of aspirin; B95.2 Enterococcus as the cause of diseases classified elsewhere; R13.10 Dysphagia, unspecified; Z86.73 Personal history of transient ischemic attack (TIA), and cerebral infarction without residual deficits
CPT/HCPCS: 36415; 71045; 80053; 81001; 83605; 85025; 85610; 85730; 87040; 87077; 87086; 87088; 87149; 87186; 87428; 92610; 93005; 94640; 97162; 97166; 97802; 99285; J7030; J7040; J7050; A4216; J0290

== ENCOUNTER 2022-07-29 10:06 | Emergency (ER) | payer MEDICARE, SELFPAY ==
[2022-07-29 10:07] VITALS: BP 152/93; PULSE 95; RESP 20; TEMP 36.8; O2SAT 97; BMI 15.8
[2022-07-29 10:11] VITALS: BP 152/93; PULSE 89; RESP 20; TEMP 36.8; O2SAT 97
--- NOTE | 2022-07-29 10:22 | EDS_ITS ---
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 COPD (chronic obstructive pulmonary disease) COPD (chronic obstructive pulmonary disease) Delirium due to another medical condition Difficulty swallowing Dysphagia Dyspnea Emphysema, unspecified Essential (primary) hypertension Former smoker Heartburn History of steroid therapy Hyperlipidemia Loss of hearing Macular degeneration Multiple premature ventricular complexes Myocardial infarct Non-rheumatic aortic stenosis Old inferior wall myocardial infarction On home oxygen therapy Poor vision Pulmonary cachexia due to COPD Restless legs RLS (restless legs syndrome) Shortness of breath on exertion Squamous cell skin cancer Stage 3 severe COPD by GOLD classification Stroke/cerebrovascular accident Underweight Uses wheelchair Wears dentures Home Medications aspirin 81 mg chewable tablet 81 mg PO DAILY [facility] 07/24/16 [History Last Taken 03/14/22] tamsulosin 0.4 mg capsule 0.8 mg PO QHS BPH 12/21/18 [History Last Taken 03/17/22] metoprolol succinate 25 mg tablet,extended release 24 hr (Toprol XL) 12.5 mg PO QHS BLOO PRESSURE 06/22/21 [History Last Taken 03/17/22] tiotropium bromide 2.5 mcg/actuation mist for inhalation (Spiriva Respimat) 2 puff inhalation DAILY breathing 06/23/21 [History Last Taken 03/17/22] albuterol sulfate 2.5 mg/3 mL (0.083 %) solution for nebulization 2.5 mg inhalation Q6H PRN PRN BREATHING 04/21/22 [History Last Taken Unknown] atorvastatin 80 mg tablet (Lipitor) 80 mg PO DAILY breathing 04/21/22 [History Last Taken Unknown] clopidogrel 75 mg tablet 75 mg PO DAILY [facility] 04/21/22 [History Last Taken Unknown] ipratropium 20 mcg-albuterol 100 mcg/actuation mist for inhalation (Combivent Respimat) inhalation breathing 04/21/22 [History Last Taken Unknown] amoxicillin 250 mg/5 mL oral suspension 500 mg (10 mL) PO Q6H 5 days #200 mL 04/23/22 [Rx Last Taken Unknown] food supplemt, lactose-reduced 0.08 gram-1.5 kcal/mL oral liquid (Ensure Plus High Protein) 120 ml PO 4X/DAY #60 BOTTLES 04/23/22 [Rx Last Taken Unknown] nitrofurantoin macrocrystal 100 mg capsule 100 mg PO BID 7 days #14 caps 07/29/22 [Rx Last Taken Unknown] Allergy/AdvReac Type Severity Reaction Status Date / Time No Known Allergies Allergy Verified 07/29/22 10:06 Family History Mother CVA (cerebral vascular accident) Brother Myocardial infarction age 50 Surgical History H/O coronary artery bypass surgery (10/24/02) History of aortic valve replacement with tissue graft (10/24/02) History of coronary artery stent placement (1997) History of heart surgery Hx of lithotripsy Social History Smoking Status: Former smoker Tobacco: How many years used: 50 how long ago did patient quit smokin, 1ppd second hand exposure: Yes EXAM Physical Exam Const Vital Signs: 07/29/22 10:07 07/29/22 10:11 Temperature 98.3 F 98.3 F Temperature Source Oral Oral Pulse Rate 95 89 Respiratory Rate 20 H 20 H Blood Pressure 152/93 H 152/93 H Blood Pressure Mean 112 112 Pulse Ox 97 97 Oxygen Delivery Method Nasal Cannula Nasal Cannula Oxygen Flow Rate (L/min) 3 3 MDM MDM MDM Narrative Medical decision making narrative: HISTORY OF PRESENT ILLNESS: 86-year-old male here with concern for urinary tract infection. He is accompanied by his and son. They state patient was transiently confused earlier in the week. They state they tested the patient for urine infection at home and this test was positive. The states she gave the patient 100 mg of nitrofurantoin prior to arrival. Patient here denies any confusion. States he feels fine and denies any chest pain, shortness of breath, abdominal pain, frequency urgency or dysuria. Denies any hematuria. REVIEW OF SYSTEMS: Pertinent positives: None Pertinent negatives: Fevers, chills, abdominal pain PHYSICAL EXAM: Nursing triage notes reviewed, Vital signs reviewed Constitutional: please see mdm HENT: MMM Eyes: Pupils equal round and reactive to light, Extraocular muscles intact Neck: No stridor, no JVD, full neck ROM Lungs: Clear to auscultation, No wheezing or rales. No increased work of breathing, no conversational dyspnea, no accessory muscle use, no nasal flaring. No respiratory distress noted Heart: Regular rate and rhythm, No murmurs, No rubs and No gallops, 2+ distal pulses (radial, femoral, posterior tibial) in all extremities Abdomen: Soft, there is no tenderness, rigidity, rebound or guarding, no obvious peritoneal signs, no palpable pulsatile abdominal masses, no auscultated abdominal bruit : No CVAT Extremities: No edema Neuro: Alert and oriented x2 (person, place not time baseline per family), neuro exam at baseline, cranial nerves II through XII are intact. No pain with extraocular muscle movement. There is negative test of skew. Normal speech. 5 of 5 strength in upper and lower extremities in flexion extension. Intact sensation to light touch in upper and lower extremity dermatomes. No truncal or extremity ataxia. No dysdiadochokinesia. Normal gait. 2+ reflexes. No meningeal signs. Negative Babinski. NIH of 0 Skin: No rash or lesions noted MEDICAL DECISION MAKING: Chief Complaint: Concern for UTI External records reviewed: Urine culture from April grew Enterococcus that was pansensitive Factors affecting care: History of COPD, CVA, delirium, CAD, AAS, Social determinants of health: Former smoker History obtained from others: and son Consults: ALL IMAGES HAVE BEEN PERSONALLY REVIEWED AND INTERPRETED BY MYSELF. [facility] Narrative: The patient was hemodynamically stable, afebrile, nontoxic-appearing. He had no focal neurologic deficits he was at his baseline mental status. I considered the following differential diagnosis: UTI, infectious encephalopathy Urinalysis showed evidence of urine inflammation. Will send for culture and gav e nitrofurantoin empirically for UTI. I had a shared decision-making discussion with patient and family discussed additional labs, images further testing and observation patient and family refused stating they would like to try oral antibiotics from home. They agreed to monitor the patient closely and return if symptoms were to change or worsen or he is unable to tolerate antibiotics. Urine culture sent. Will await results. Total critical care time today provided was at least 0 minutes. This excludes separately billable procedures. There was a high probability of clinically significant/life threatening deterioration in the patient's condition which required my urgent intervention. Shared decision making: I will have a discussion with the patient and or visitors regarding risk/benef its of further testing or admission. They will be made aware of of the risk/benefits inherent in this decision they will be given the opportunity to voice understanding. Lab Data Attestation: I reviewed the patient's lab results. Lab results narrative: UA with evidence of urinary inflammation Labs: Laboratory Results - last 24 hr 07/29/22 10:54 Urine Color Yellow Urine Clarity Clear Urine pH 6.0 Ur Specific [place] 1.015 Urine Protein 30 H Urine Glucose (UA) Normal Urine Ketones Negative Urine Occult Blood 25 H Urine Nitrite Negative Urine Bilirubin Negative Urine Urobilinogen 4 H Ur Leukocyte Esterase 100 H Urine RBC 0-5 SEEN Urine WBC 0-5 SEEN Ur Squamous Epith Cells 0 SEEN Urine Bacteria 0 SEEN Urine Mucus 0 SEEN Treatment and Re-Evaluation :: Repeat neurologic exam remained intact. Patient is appropriate discharge home with nitrofurantoin and strict return precautions. Discharge Plan Triage Chief Complaint: Complaint ED Provider: Sheng Matthews Dx/Rx/DC Orders Clinical Impression: Acute UTI Instructions: ED Bladder Infection, Male (Adult) Prescriptions: New nitrofurantoin macrocrystal 100 mg capsule 100 mg PO BID 7 Days Qty: 14 0RF Rx Instructions: must administer with a meal/food No Action tamsulosin 0.4 mg capsule 0.8 mg PO QHS aspirin 81 MG tablet,chewable 81 mg PO DAILY metoprolol succinate [Toprol XL] 25 mg tablet extended release 24 hr 12.5 mg PO QHS Spiriva Respimat 2.5 mcg/actuation mist 2 puff INHALATION DAILY atorvastatin [Lipitor] 80 mg Tablet 80 mg PO DAILY Combivent Respimat 20-100 mcg/actuation mist INHALATION Label Comments: INHALE 1 PUFF DAILY albuterol sulfate 2.5 mg /3 mL (0.083 %) solution for nebulization 2.5 mg INHALATION Q6H PRN PRN (Reason: BREATHING) clopidogrel 75 mg tablet 75 mg PO DAILY Ensure Plus High Protein 0.08 gram-1.5 kcal/mL Liquid 120 ml PO 4X/DAY Qty: 60 0RF amoxicillin 250 mg/5 mL suspension for reconstitution 500 mg PO Q6H 5 Days Qty: 200 0RF Primary Care Provider: Ancelmo Scott Chi Referrals: Ancelmo Scott Chi, MD [Primary Care Provider] - Activity Restrictions/Additional Instructions: Thank you for trusting us with your care today! Please take Tylenol (2 pills, 650 mg), ibuprofen (2 pills, 400 mg) every 6 hours as needed for pain and fever control. Please take antibiotics as prescribed. Please return to the emergency department if your symptoms change or worsen. Specifically if you notice the patient is becoming more confused, develops fever, chills, nausea and vomiting or cannot tolerate antibiotics by mouth. Please follow with your primary care physician for further outpatient evaluation and management. Disposition Disposition: Home, Self Care
[2022-07-29 11:04] LABS: Bacteria 0 SEEN /hpf (None Seen); Mucous, Urine 0 SEEN /hpf (<or=2+); Squamous Epithelial Cells - UA 0 SEEN /hpf (0-5)
[2022-07-29 11:09] LABS: Color, Urine Yellow (Yellow); Glucose, Dipstick Normal (Normal); Ketone-Dipstick Negative (Negative); Leukocyte Esterase-Dipstick 100 /ul (Negative); Nitrite-Dipstick Negative (Negative); Occult Blood-Urine 25 /ul (Negative); Protein-Dipstick 30 mg/dl (Negative); Specific Gravity, Urine 1.015 (1.002-1.030); Urine Bilirubin Dipstick Negative (Negative); Urine Clarity Clear (Clear); Urine Urobilinogen 4 mg/dl (Normal)
[2022-07-29 11:20] LABS: Red Blood Cells-Urine 0-5 SEEN /hpf (0-5); White Blood Cells 0-5 SEEN /hpf (0-5)
[2022-07-29 12:18] VITALS: BP 122/75; O2SAT 97
== END 2022-07-29 12:19 | disposition home or self-care (01) ==
PROVIDERS: Emergency Provider Emergency Medicine; PCP Family Medicine Geriatric Medicine; Visit Provider Emergency Medicine
DX: N39.0 Urinary tract infection, site not specified (principal); J43.9 Emphysema, unspecified; I10 Essential (primary) hypertension; Z87.891 Personal history of nicotine dependence; E78.5 Hyperlipidemia, unspecified; I25.10 Atherosclerotic heart disease of native coronary artery without angina pectoris
CPT/HCPCS: 81001; 87086; 99282

== ENCOUNTER → 2022-08-03 | Outpatient (CLI) | payer MEDICARE, SELFPAY ==
[2022-08-03 12:34] LABS: Absolute Lymphocyte Count 1.22 X10^3/uL (0.83-4.51); Absolute Neutrophil Count 5.3 X10^3/uL (2.0-7.7); Basophil# 0.04 X10^3/uL; Basophil% 0.6 % (0-1); Eosinophil# 0.06 X10^3/uL; Eosinophils% 0.8 % (0-5); Hematocrit 34.1 % (40-54); Hemoglobin 10.9 g/dL (13.0-16.5); Lymphocyte # 1.22 X10^3/ul (0.83-4.51); Mean Corpuscular Hgb 29.1 pg (27.0-32.0); Mean Corpuscular Volume 90.9 fL (80-94); Mean Platelet Vol. 10.9 fl (6.2-12.0); Monocyte# 0.52 X10^3/uL; Monocyte% 7.2 % (0-10); NRBC Flagged by Analyzer 0 % (0-5); Neutrophil # 5.31 X10^3/uL (2.7-7.7); Platelet Count 258 K/mm3 (150-450); RBC Distribution Width CV 13.9 % (11.6-14.6); RBC Distribution Width SD 46.5 fl (35.1-43.9); Red Blood Count 3.75 M/mm3 (4.6-6.2); White Blood Count 7.2 K/mm3 (4.4-11.0)
[2022-08-03 13:14] LABS: Vitamin D,25 Hydroxy 32.2 ng/mL
[2022-08-03 13:42] LABS: ALB/GLOB Ratio 0.5 RATIO (0.9-2.4); AST(SGOT) 14 U/L (15-37); Alanine Aminotransfer ALT/SGPT 17 U/L (16-61); Albumin, Serum 2.5 g/dL (3.2-5.0); Alkaline Phosphatase 99 U/L (45-117); Anion Gap 7 (5-15); BUN 11 mg/dL (7-18); BUN/Creat Ratio 11.2 RATIO (10-20); Calcium,Total 9.1 mg/dL (8.5-10.1); Chloride 102 mmol/L (98-107); Cholesterol 139 mg/dL (200); Creatinine, Serum 0.98 mg/dL (0.70-1.30); EST Glomerular Filtration Rate 76 mL/min (>60); Est Glom Filt Rate - Afr Amer 92 mL/min (>60); Globulin 4.6 g/dL (2.2-4.2); Glucose 121 mg/dL (74-106); High Density Lipoprotein 48 mg/dL; Potassium 2.7 mmol/L (3.5-5.1); Protein, Total 7.1 g/dL (6.4-8.2); Sodium Level 143 mmol/L (136-145); Thyroid Stim Hormone (TSH) 3.21 uIU/mL (0.358-3.74); Triglycerides 52 mg/dL; Very Low Density Lipoprotein 10 mg/dL (5-40)
== END | disposition home or self-care (01) ==
LOC: LAB 12:02
PROVIDERS: PCP Family Medicine Geriatric Medicine; Referring Provider Family Medicine Geriatric Medicine; Visit Provider Family Medicine Geriatric Medicine
DX: R53.83 Other fatigue (principal); E55.9 Vitamin D deficiency, unspecified
CPT/HCPCS: 36415; 80053; 80061; 82306; 84443; 85025